=== PATIENT | female | born 1970 | race African-American/Black ===

== ENCOUNTER 2024-12-30 17:57 | Inpatient (IN) | payer MEDICAID, OTHER ==
[~2024-12-30] VITALS: Ht 175.3 cm; Wt 110.8 kg
[2024-12-30] MEDS: SODIUM CHLORIDE 0.9% 1,000 ML IV ONE (19:00)
[2024-12-30] MEDS: ACETAMINOPHEN 325 MG TAB PO ONE (19:00)
--- NOTE | 2024-12-30 19:29 | ED.PDOC ---
Musculoskeletal HPI Comments 54 year old female presents to the ED via EMS with a chief complaint of LT foot pain. Patient states she had LT toe de[place] [facility] [place] and second debridement done on 12/09/24 and states surgeon drained wound 4 days ago. Patient was at the store today, began experiencing LT leg, LT foot pain as well as headache, lightheadedness, called 911. Patient's BP was 160 systolic. Patient noticed pain radiates from LT foot to ferrari when she ambulates. PMHx DM. Denies fever, chills, nausea, vomiting, chest pain, shortness of breath, blurry vision. No other associated symptoms, modifiers, recent injuries or sick contacts present at this time. Chief Complaint: Headache Time Seen by MD: 18:50 Reviewed Notes: Medications, Allergies Allergies: Coded Allergies: NO KNOWN ALLERGIES (Unverified , 08/07/10) Information Source: Patient, Relative Mode of Arrival: EMS Location: Left Extremity Location: Foot, Great Toe, Other (ferrari) Timing: Hours Prehospital treatment: None Severity: Moderate Able to Move Extremity: Yes Bear Weight: Limited Pain: Moderate Circumstances: Preceding Wound Symptoms: Pain, Erythema DVT Risk Factors: NONE, Recent surgery (toe debridement) Associated signs and symptoms: Foot pain Past Medical History PAST MEDICAL HISTORY: DM Surgical History (Other): LT great toe debridement SAUSAGE LINKER History: No Pertinent SAUSAGE LINKER History Family History Family History: Reviewed,noncontributory to illness, No family hx of Cancer, No family hx of DM, No family hx of Heart pramod, No family hx of HTN, No family hx ofKidney pramod, No family hx of Liver pramod, No family hx of Lung pramod, No family hx of Stroke Social History Smoker: Non-Smoker Alcohol: Denies ETOH Use Drugs: Denies Drug Use Lives In: Home Constitutional: denies: chills, diaphoresis, fatigue, fever, malaise, sweats, weakness, others EENTM: denies: blurred vision, double vision, ear bleeding, ear discharge, ear drainage, ear pain, ear ringing, eye pain, eye redness, hearing loss, mouth pain, mouth swelling, nasal discharge, nose bleeding, nose congestion, nose pain, photophobia, tearing, throat pain, throat swelling, voice changes, others Respiratory: denies: cough, hemoptysis, orthopnea, SOB at rest, shortness of breath, SOB with excertion, stridor, wheezing, others Cardiovascular: denies: chest pain, dizzy spells, diaphoresis, Dyspnea on exertion, edema, irregular heart beat, left arm pain, lightheadedness, palpitations, PND, syncope, others Gastrointestinal: denies: abdomen distended, abdominal pain, blood streaked bowels, constipated, diarrhea, dysphagia, difficulty swallowing, hematemesis, melena, nausea, poor appetite, poor fluid intake, rectal bleeding, rectal pain, vomiting, others Genitourinary: denies: abnormal vagina bleeding, burning, dyspareunia, dysuria, flank pain, frequency, hematuria, incontinence, pain, , vagina discharge, urgency, others Neurological: reports: headache; denies: dizziness, fainting, left sided numbness, left sided weakness, numbness, paresthesia, pre-existing deficit, right sided numbness, right sided weakness, seizure, speech problems, tingling, tremors, weakness, others Musculoskeletal: reports: others (LT leg and LT foot pain); denies: back pain, gout, joint pain, joint swelling, muscle pain, muscle stiffness, neck pain Integumetry: denies: bruises, change in color, change in hair/nails, dryness, laceration, lesions, lumps, rash, wounds, others Allergic/Immunocompromised: denies: Difficulty Healing, Frequent Infections, Hives, Itching, others Hematologic/Lymphatic: denies: anemia, blood clots, easy bleeding, easy bruising, swollen glands, others Endocrine: denies: excessive hunger, excessive sweating, excessive thirst, excessive urination, flushing, intolerance to cold, intolerance to heat, unexplained weight gain, unexplained weight loss, others Psychiatric: denies: anxiety, bipolar disorder, depression, hopeless, panic disorder, schizophrenia, sleepless, suicidal, others All Other Systems: Reviewed and Negative Physical Exam General Appearance: Normal HEENT: Normal ENT Inspection, Pharynx Normal, TMs Normal Neck: Full Range of Motion, Non-Tender, Normal, Normal Inspection Respiratory: Chest Non-Tender, Lungs Clear, No Accessory Muscle Use, No Respiratory Distress, Normal Breath Sounds Cardiovascular: No Edema, No JVD, No Murmur, No Gallop, Normal Peripheral Pulses, Regular Rate/Rhythm Breast Exam: Deferred Gastrointestinal: No Organomegaly, Non Tender, No Pulsatile Mass, Normal Bowel Sounds, Soft Genitalia: Deferred Pelvic: Deferred Rectal: Deferred Extremities: No calf tenderness, Normal capillary refill, No pedal edema Musculoskeletal : Location: Left Extremity Location: Foot (purulent drainage witih erythema noted ), Other (LT ferrari with purulent drainage noted as well as erythema) Apperance: Normal Neurologic: Alert, chair installer II-XII nml as Tested, No Motor Deficits, Normal Affect, Normal Mood, No Sensory Deficits Cerebellar Function: Normal Reflexes: Normal Skin: Dry, Normal Color, Warm Lymphatic: No Adenopathy Was a procedure done? Was a procedure done?: No Differential Diagnosis EXT Differential Diagnosis: Cellulitis, Compartment Syndrome, Fracture X-Ray, Labs, Meds, VS Vital Signs Date Time Temp Pulse Resp B/P (MAP) Pulse Ox O2 Delivery O2 Flow Rate FiO2 12/30/24 23:00 98 10 152/96 12/30/24 23:00 98.7 100 10 152/96 (114) 100 98.7 12/30/24 22:30 Room Air* 0 21 12/30/24 18:13 98.7 106 16 159/99 (119) 99 98.7 Lab Test 12/30/24 19:20 Range/Units White Blood Count 5.1 4.4-10.8 10^3/uL Red Blood Count 3.89 L 4.0-5.20 10^6/uL Hemoglobin 11.2 L 12.2-16.2 g/dL Hematocrit 34.4 L 36.0-46.0 % Mean Corpuscular Volume 88.3 80.0-100.0 fL Mean Corpuscular Hemoglobin 28.9 28.0-32.0 pg Mean Corpuscular Hemoglobin Concent 32.7 32.0-36.0 g/dL Red Cell Distribution Width 14.9 H 11.8-14.3 % Platelet Count 278 140-450 10^3/uL Mean Platelet Volume 7.5 6.9-10.8 fL Neutrophils (%) (Auto) 55.1 37.0-80.0 % Lymphocytes (%) (Auto) 28.0 10.0-50.0 % Monocytes (%) (Auto) 9.5 0.0-12.0 % Eosinophils (%) (Auto) 5.7 0.0-7.0 % Basophils (%) (Auto) 1.7 0.0-2.0 % Neutrophils # (Auto) 2.8 1.6-8.6 10 ^3/uL Lymphocytes # (Auto) 1.4 0.4-5.4 10 ^3/uL Monocytes # (Auto) 0.5 0-1.3 10 ^3/uL Eosinophils # (Auto) 0.3 0-0.8 10 ^3/uL Basophils # (Auto) 0.1 0-0.2 10 ^3/uL Nucleated Red Blood Cells 0.1 % Sodium Level 139 136-145 mmol/L Potassium Level 4.1 3.5-5.1 mmol/L Chloride Level 102 98-107 mmol/L Carbon Dioxide Level 28 20-31 mmol/L Anion Gap 9 5-15 Blood Urea Nitrogen 14 9-23 mg/dL Creatinine 0.88 0.550-1.02 mg/dL Glomerular Filtration Rate Calc 79 >90 mL/min BUN/Creatinine Ratio 15.9 10.0-20.0 Serum Glucose 254 H 74-106 mg/dL Lactic Acid Level 1.3 0.4-2.0 mmol/L Calcium Level 9.3 8.7-10.4 mg/dL Troponin I High Sensitivity 4 </=34 ng/L Current Medications Medications (Trade) Dose Ordered Sig/Garima Route Start Time Stop Time Status Last Admin Acetaminophen (Tylenol Tablet) 650 mg ONCE ONCE PO 12/30/24 19:00 12/30/24 19:02 DC 12/30/24 19:00 Metoclopramide HCl (Reglan Injection) 10 mg ONCE ONCE IV 12/30/24 19:00 12/30/24 19:02 DC 12/30/24 23:00 Morphine Sulfate 4 mg ONCE ONCE IV 12/30/24 19:00 12/30/24 19:02 DC 12/30/24 23:00 Sodium Chloride 2,000 ml @ 2,000 mls/hr ONCE ONCE IV 12/30/24 19:15 12/30/24 20:14 DC 12/30/24 23:00 Vancomycin HCl 200 ml @ 200 mls/hr ONCE ONCE IV 12/30/24 19:15 12/30/24 20:14 DC 12/30/24 23:00 Cefepime HCl 50 ml @ 12.5 mls/hr ONCE ONCE IV 12/30/24 19:15 12/30/24 23:14 DC 12/31/24 00:30 Time of 1ST Reevaluation: 19:20 Reevaluation 1ST: Unchanged Patient Education/Counseling: Diagnosis, Treatment, Prognosis Family Education/Counseling: Diagnosis, Treatment, Prognosis Additional Information The following tests were ordered, and results were reviewed by me: XY L TIB FIB, XY L FOOT 3 VIEW, CBC, BMP, TROP, LA W/REFLEX, BLOOD CULTURE, XY CHEST Additional Information was gathered from interviewing the following independent historians: EMS, cousin I reviewed and agreed with the following test results read by other providers: XY CHEST, XY L TIB FIB, XY L FOOT 3 VIEW, I discussed treatment and results with medical personnel and: patient and cousin Comprehensive systems review obtained and negative except for what is stated in the HPI. Sepsis Sepsis Reasesment Focused Exam Orders: Laboratory Tests 12/30/24 19:20: Lactic Acid Level 1.3 Departure 1 Departure Time of Disposition: 06:03 (Patient with a infected leg. We will admit patient for further workup and expert consultation) Impression: Primary Impression: Leg wound, left Qualified Codes: S81.802A - Unspecified open wound, left lower leg, initial encounter Additional Impression: Cellulitis of leg, left Disposition: 09 ADMITTED INPATIENT Admit to: Med Surg Condition: Serious Critical Care Note Critical Care Time?: Yes Critical care comment: Intractable leg pain Authorized and Performed by: Analia García MD Total critical care time: Approximately 43 minutes Due to a high probability of clinically significant, life threatening deterioration, the patient required my highest level of preparedness to intervene emergently and I personally spent this critical care time directly and personally managing the patient. This critical care time included obtaining a history; examining the patient; pulse oximetry; ordering and review of studies; arranging urgent treatment with development of a management plan; evaluation of patient's response to treatment; frequent reassessment; and, discussions with other providers. This critical care time was performed to assess and manage the high probability of imminent, life-threatening deterioration that could result in multi-organ failure. It was exclusive of separately billable procedures and treating other patients and teaching time. Please see my other sections and the rest of the note for further information on patient assessment and treatment. Stability Stability form required: No I personally scribed for ANALIA GARCÍA MD ([email or web address]) on 12/30/24 at 19:29. El ectronically submitted by Kamilah Cole ([email or web address]). I personally scribed for ANALIA GARCÍA MD ([email or web address]) on 12/30/24 at 19:37. Electr onically submitted by Kamilah Cole ([email or web address]). ANALIA GARCÍA MD Dec 30, 2024 19:29
[2024-12-30 19:35] LABS: Hematocrit 34.4 % (36.0-46.0); Hemoglobin 11.2 g/dL (12.2-16.2); Mean Corpuscular Hemoglobin 28.9 pg (28.0-32.0); Mean Corpuscular Volume 88.3 fL (80.0-100.0); Nucleated Red Blood Cells % 0.1 %
[2024-12-30 19:43] LABS: Chloride 102 mmol/L (98-107); Potassium 4.1 mmol/L (3.5-5.1); Sodium 139 mmol/L (136-145)
[2024-12-30 19:44] LABS: Anion Gap 9 (5-15); Calcium 9.3 mg/dL (8.7-10.4); Carbon Dioxide 28 mmol/L (20-31)
[2024-12-30 19:49] LABS: BUN/Creatinine Ratio 15.9 (10.0-20.0); Blood Urea Nitrogen 14 mg/dL (9-23)
[2024-12-30 19:54] LABS: Glucose 254 mg/dL (74-106)
--- NOTE | 2024-12-30 20:46 | DVH ---
CLINICAL INDICATION: left leg pain s/p debridement TECHNIQUE: 1 radiographic views of the left tibia fibula are were obtained. Comparison: None FINDINGS/IMPRESSION: Multiple radiolucent foreign bodies are noted in the mid lateral tibia and fibular soft tissues.
--- NOTE | 2024-12-30 20:57 | DVH ---
CHEST RADIOGRAPH Indication: fever Technique: Single frontal view of the chest was obtained Comparison: None FINDINGS: Lines and Tubes: None Lungs: No focal consolidation. Pleura: No effusion. No pneumothorax. Cardiomediastinal contours: Unremarkable Bones: No acute osseous abnormality. IMPRESSION: 1. No acute cardiopulmonary disease.
--- NOTE | 2024-12-30 20:58 | DVH ---
CLINICAL INDICATION: left foot pain s/p debridement TECHNIQUE: 3 radiographic views of the left foot were obtained. Comparison: None FINDINGS/IMPRESSION: Increased tissue density on the dorsal as well as plantar surface of the distal metatarsals proximal phalanges.
[2024-12-30] MEDS: METOCLOPRAMIDE HCL 5MG/ml INJ 2ml VIAL IV ONE (23:00)
[2024-12-30] MEDS: SODIUM CHLORIDE 0.9% 2,000 ML IV ONE (23:00)
[2024-12-30] MEDS: MORPHINE SULFATE 4 MG/ML SYR/VIAL IV ONE (23:00)
[2024-12-30] MEDS: VANCOMYCIN 1GM/200ML PM 200 ML IV ONE (23:00)
--- NOTE | 2024-12-30 23:48 | DVHHP2 ---
History of Present Illness History of Present Illness This is a 54-year-old female with past medical history of Type 2 diabetes mellitus, HTN, HLD, section brought in by EMS due to left foot pain which started around 4:30 p.m. suddenly during walking around the grocery store. The left foot pain is localized, 9/10 intensity, radiates to ferrari of the tibia, aggravated on walking or making pressure and no relieving factor. Patient went to [facility] on 12/04/2024 due to left great toe pain, swelling eventually wound debridement done and 2nd on debridement done on 0 12/09/2024. Patient received IV antibiotic at home with right arm PICC line and wound dressing changes by visiting nurse. As per patient, recent visit 4 days ago and fluid drainage from left tibial region. In ER, patient lying on bed and dry gauze cover with tibia and left great toe. Patient denies any history of trauma, injury, MVA or recent sick contact. Blood sugar ranges at home 120-200. Currently denies any chest pain, SOB, cough, abdominal pain, dysuria. PAST MEDICAL HISTORY: Type 2 diabetes mellitus, HTN, HLD, section Surgical History (Other): LT great toe debridement on December 04 and December 09, C- section x1 Family History: noncontributory Social History Smoker: Non-Smoker, Denies ETOH Use Drugs: Denies Drug Use Lives In: Home Allergy :no known allergy PCP: Review of Systems Constitutional: Yes: Malaise, Other (APPEARANCE OBESE); No: Fever, Chills, Sweats, Weakness Eyes: No: Pain, Vision change, Conjunctivae inflammation, Eyelid inflammation, Other, Redness ENT: No: Ear pain, Ear discharge, Nose pain, Nose discharge, Nose congestion, Mouth pain, Mouth swelling, Throat pain, Throat swelling, Other Respiratory: No: Cough, Dry, Shortness of breath, SOB with excertion, Wheezing, Hemoptysis, Pleuritic Pain, Sputum, Wheezing, Other Cardiovascular: No: Chest Pain, Palpitations, Orthopnea, Paroxysmal Noc. Dyspnea, Edema, Lt Headedness, Other Gastrointestinal: No: Nausea, Vomiting, Abdominal Pain, Diarrhea, Constipation, Melena, Hematochezia, Other Genitourinary: No Dysuria, No Frequency, No Incontinence, No Hematuria, No Retention, No Other Musculoskeletal: No: other, neck pain, shoulder pain, arm pain, back pain, hand pain, leg pain, foot pain Skin: Other (WOUND PRESENT ON EXTENSOR SURFACE OF THE TIBIA AND LEFT GREAT TOE); No: Rash, Lesions, Jaundice, Bruising Neurological: No: Weakness, Numbness, Incoordination, Change in speech, Confusion, Seizures, Other Allergies: Coded Allergies: NO KNOWN ALLERGIES (Unverified , 08/07/10) Exam Vital Signs Vital Signs Date Time Temp Pulse Resp B/P (MAP) Pulse Ox O2 Delivery O2 Flow Rate FiO2 12/30/24 23:00 98 10 152/96 12/30/24 18:13 98.7 99 98.7 General Appearance: Alert, Oriented X3, Cooperative, No acute distress HEENT: Atraumatic, PERRLA, EOMI Respiratory: Clear to auscultation, Normal air movement Cardiovascular: Regular rate, Normal S1, Normal S2 Abdominal: Normal bowel sounds, Soft, No tenderness Extremities: No clubbing, No cyanosis, Normal pulses, Other (LEFT LEG EDEMA, SKIN CHANGES, WOUND EXTENSOR SURFACE OF TIBIA AND) Neuro: Normal speech, Sensation intact, Other (GAIT INSTABILITY DUE TO LEFT LEG WOUND) Labs/Xrays Labs Test 12/30/24 19:20 Range/Units White Blood Count 5.1 4.4-10.8 10^3/uL Red Blood Count 3.89 L 4.0-5.20 10^6/uL Hemoglobin 11.2 L 12.2-16.2 g/dL Hematocrit 34.4 L 36.0-46.0 % Mean Corpuscular Volume 88.3 80.0-100.0 fL Mean Corpuscular Hemoglobin 28.9 28.0-32.0 pg Mean Corpuscular Hemoglobin Concent 32.7 32.0-36.0 g/dL Red Cell Distribution Width 14.9 H 11.8-14.3 % Platelet Count 278 140-450 10^3/uL Mean Platelet Volume 7.5 6.9-10.8 fL Neutrophils (%) (Auto) 55.1 37.0-80.0 % Lymphocytes (%) (Auto) 28.0 10.0-50.0 % Monocytes (%) (Auto) 9.5 0.0-12.0 % Eosinophils (%) (Auto) 5.7 0.0-7.0 % Basophils (%) (Auto) 1.7 0.0-2.0 % Neutrophils # (Auto) 2.8 1.6-8.6 10 ^3/uL Lymphocytes # (Auto) 1.4 0.4-5.4 10 ^3/uL Monocytes # (Auto) 0.5 0-1.3 10 ^3/uL Eosinophils # (Auto) 0.3 0-0.8 10 ^3/uL Basophils # (Auto) 0.1 0-0.2 10 ^3/uL Nucleated Red Blood Cells 0.1 % Sodium Level 139 136-145 mmol/L Potassium Level 4.1 3.5-5.1 mmol/L Chloride Level 102 98-107 mmol/L Carbon Dioxide Level 28 20-31 mmol/L Anion Gap 9 5-15 Blood Urea Nitrogen 14 9-23 mg/dL Creatinine 0.88 0.550-1.02 mg/dL Glomerular Filtration Rate Calc 79 >90 mL/min BUN/Creatinine Ratio 15.9 10.0-20.0 Serum Glucose 254 H 74-106 mg/dL Lactic Acid Level 1.3 0.4-2.0 mmol/L Calcium Level 9.3 8.7-10.4 mg/dL Troponin I High Sensitivity 4 </=34 ng/L SEPSIS Sepsis Screen Date sepsis recognized/suspect: Dec 30, 2024 Time Sepsis recognized/suspect: 1815 Recent Procedure: No On Antibiotic Therapy: No Respiratory Rate >20: No Heart Rate >90: No Temp<36 C (96.8 F) or >38.3 C: No SBP <90 or MAP <65 mmHG: No New Acute Mental Status Change: No Is the patient on CPAP, BIPAP,: No Physician Orders L Tib Fib Xray (12/30/24 18:59) L Foot 3 View Xray (12/30/24 18:59) Blood Culture (12/30/24 18:59) Chest Portable (12/30/24 18:59) Ok To Use Picc (12/30/24 21:47) Vital Signs Date Time Temp Pulse Resp B/P (MAP) Pulse Ox O2 Delivery O2 Flow Rate FiO2 12/30/24 23:00 98 10 152/96 12/30/24 18:13 98.7 106 16 159/99 (119) 99 98.7 Laboratory Tests Test 12/30/24 19:20 Lactic Acid Level 1.3 mmol/L (0.4-2.0) White Blood Count 5.1 10^3/uL (4.4-10.8) Medications Medications Dose Ordered Sig/Garima Route Start Time Stop Time Status Last Admin Dose Admin Acetaminophen 650 mg ONCE ONCE PO 12/30/24 19:00 12/30/24 19:02 DC 12/30/24 19:00 650 MG Metoclopramide HCl 10 mg ONCE ONCE IV 12/30/24 19:00 12/30/24 19:02 DC 12/30/24 23:00 10 MG Morphine Sulfate 4 mg ONCE ONCE IV 12/30/24 19:00 12/30/24 19:02 DC 12/30/24 23:00 4 MG Sodium Chloride 2,000 ml @ 2,000 mls/hr ONCE ONCE IV 12/30/24 19:15 12/30/24 20:14 DC 12/30/24 23:00 2,000 MLS/HR Vancomycin HCl 200 ml @ 200 mls/hr ONCE ONCE IV 12/30/24 19:15 12/30/24 20:14 DC 12/30/24 23:00 200 MLS/HR Assessment/Plan Assessment/Plan # LEFT LOWER EXTREMITY CELLULITIS -Patient came with left leg pain and swelling -H/O debridement wound x 2 in [facility] -During admission patient is tachycardic heart rate 106 but no leukocytosis -In ER, patient received cefepime, vanco, NSS, morphine, Tylenol. -PICC line placed on right arm for IV ABX -Lactic acid 1.3 -Troponin level 4 -CXR-no acute cardiopulmonary disease -Left tibia and fibula:Multiple radiolucent foreign bodies are noted in the mid lateral tibia and fibular soft tissues. -x-ray left foot: Increased tissue density on the dorsal as well as plantar surface of the distal metatarsals proximal phalanges. -NSS 100 CC/HOURS -Cefepime IV1 g b.i.d. -Vancomycin IV -Blood culture and wound culture orders -CT left lower extremity WITHOUT CONTRAST -Podiatry consult -Arterial duplex lower extremity to rule out DVT # TYPE 2 DIABETES MELLITUS WITH HYPERGLYCEMIA --Home medication metformin 500 mg p.o. b.i.d., Lantus insulin 20 units bedtime -BMP blood glucose 254 -Continuing Lantus 50 units SC with name -Insulin sliding scale -Monitor blood sugars -HbA1c ordered # ESSENTIAL HYPERTENSION -Lisinopril 20 mg p.o. daily -Amlodipine5 mg p.o. daily # HYPERLIPIDEMIA -Atorvastatin 40 mg p.o. daily -Lpid profile # NORMOCYTIC NORMOCHROMIC ANEMIA -Hemoglobin 11.2, HCT 34.4 -MCV 88.3, MCH 28.9, RDW 14.1 -No signs symptoms of active bleeding -Iron panel, ferritin level orders -Stool for occult blood test # MORBID OBESITY, BMI 36.7 -Life style modification Diet: Diabetic diet GI prophylaxis: Pantoprazole 40 mg p.o. daily DVT prophylaxis: Lovenox 40 mg sc daily Goals, of care discussions more than27 minute spent With patient.Full code status. Case discussed with Dr. Salter Plan discussed with: Patient, Other (NURSE) Date of Service: Dec 30, 2024 Billing Provider: JERRI SALTER MD Common Visit Codes: 70981-AIFSERK INP/OBS CARE (HIGH) Secondary Visit Codes: 19064-GCPQTSKD CARE PLAN 30 MINUTES MILE LANGE RESIDENT Dec 30, 2024 23:48
[2024-12-31] VITALS (9 sets, daily range): BP systolic 129–175; BP diastolic 83–101; PULSE 87–106; RESP 16–19; TEMP 97.3–99.4; O2SAT 96–99
[2024-12-31] MEDS ORDERED: VANCOMYCIN PER PHARMACY 0 MG IV SCH
[2024-12-31] MEDS ORDERED: DEXTROSE (50%) 50ML SYRG IV PRN
[2024-12-31] MEDS ORDERED: NITROGLYCERIN 0.4 MG SL TAB SL PRN
[2024-12-31] MEDS: CEFEPIME 2GM/50ML NS 50 ML IV ONE (00:30)
--- NOTE | 2024-12-31 00:57 | DVH ---
Left lower extremity venous duplex Clinical History: Left lower extremity cellulitis Comparison: None Technique: Duplex Doppler evaluation of the deep venous system of the left lower extremity from the common femor al vein to the popliteal vein including color Doppler and spectral/pulsed waveform analysis was perfo rmed. Findings: The common femoral vein demonstrates appropriate compressibility and waveform variability. There is compressibility/patency of the great saphenous vein at the proximal thigh. The femoral vein demonstrates appropriate compressibility and waveform variability. The deep femoral vein demonstrates appropriate compressibility and waveform variability. The popliteal vein demonstrates appropriate compressibility and waveform variability. There is normal compressibility at the tibioperoneal trunk. Impression: 1. No left femoropopliteal venous thrombosis. 2. Contralateral common femoral vein is patent.
[2024-12-31] MEDS: INSULIN LANTUS (GLARGINE) 1 /0.01ml (100units/ml) SC ONE (01:29)
[2024-12-31] MEDS: LISINOPRIL 20 MG TAB PO ONE (01:35)
[2024-12-31] MEDS: hydrALAZINE HCL 20 MG/ML VL IV ONE (04:35)
[2024-12-31] MEDS: MORPHINE SULFATE INJ 2 MG/ml SYRG IV ONE (04:36)
[2024-12-31] MEDS: SODIUM CHLORIDE 0.9% 1,000 ML IV SCH (04:36)
[2024-12-31] MEDS: PANTOPRAZOLE 40 MG TAB PO SCH (05:53)
[2024-12-31] MEDS: HYDROcodone-ACET 5/325MG TAB PO PRN (05:53)
[2024-12-31] MEDS: ACCU-CHEK COMFORT CURVE STRIP VI SCH (05:58)
[2024-12-31] MEDS: InsuLIN REG 1unit/0.01ml Soln (100units/ml) SC SCH ×2 (05:58→22:00)
--- NOTE | 2024-12-31 08:52 | DVH ---
CLINICAL INFORMATION: Left lower extremity cellulitis. TECHNIQUE: Axial CT images of the left lower extremity from the level of the mid femur through the fo ot were obtained without IV contrast. Coronal and sagittal reformatted images were obtained, reviewed , and stored. All CT scans at this medical facility are performed using dose modulation techniques a s appropriate to a performed exam including the following: Automated exposure control was utilized; a djustment of the MA and/or KV according to patient size; and use of iterative reconstruction techniqu e. CTDIvol = 8.58 mGy DLP = 731.63 mGy-cm COMPARISON: None FINDINGS: Moderate to marked subcutaneous edema throughout the left lower leg, likely cellulitis in t he appropriate clinical setting, with large complex fluid collection containing numerous locules of g as at the anterolateral aspect of the left lower leg, possibly within or adjacent to the anterior com partment musculature, poorly delineated on noncontrast enhanced examination, measures approximately 6 .0 x 4.3 cm on the axial images extends up to 28.8 cm in craniocaudal dimension on the coronal images , suspected large abscess. No gas visualized outside this collection or along adjacent fascial planes to suggest necrotizing fasciitis. There is also prominent soft tissue swelling in the great toe with wound at the plantar aspect of the 1st MTP joint. No erosive changes or cortical destruction are see n in the osseous structures. IMPRESSION: 1. Findings consistent with cellulitis in the left lower leg with large fluid collection along the an terolateral aspect of the left lower leg, possibly within or adjacent to the anterior compartment mus culature, most consistent with abscess, containing complex fluid and numerous locules of gas. 2. Soft tissue swelling in the great toe with wound at the plantar aspect of the 1st MTP joint, likel y cellulitis. 3. No definite evidence for osteomyelitis in the left lower leg or left foot. Critical findings Critical Result: Abscess. Findings discussed with the RN taking care of the patient at 12/31/2024 10:47 AM CDT, and acknowledge d receipt and understanding of the findings. ..
[2024-12-31] MEDS: CEFEPIME 1GM/ 50ML 50 ML IV SCH (09:03)
[2024-12-31] MEDS: LISINOPRIL 20 MG TAB PO SCH (09:04)
[2024-12-31] MEDS: ENOXAPARIN SOD 40 MG/0.4 ML SYRINGE SC SCH (09:04)
[2024-12-31 10:15] LABS: Triglycerides 147 mg/dL (< 150)
[2024-12-31 10:17] LABS: Cholesterol 159 mg/dL (< 200)
--- NOTE | 2024-12-31 10:20 | DVH ---
BILATERAL Lower Extremity Arterial Duplex Date: 12/31/2024 08:57 AM Clinical History: diminished pulses on lower legs Comparison: None Technique: Duplex Doppler evaluation including color Doppler and spectral/pulsed waveform analysis of the lower extremity arteries was performed. Finding: RIGHT: Peak systolic velocities are as follows: CARBON BLOCKS PRESS OPERATOR 179 cm/s Deep femoral 97 cm/s SFA proximal 135 cm/s SFA mid-portion 141 cm/s SFA distal 111 cm/s Popliteal 85 cm/s Posterior tibial 67 cm/s Dorsalis pedis 53 cm/s The waveforms are triphasic with diastolic flow. LEFT: Velocities within normal limits. Monophasic waveforms from the left popliteal artery to the left aaron salis pedal artery. Left inguinal lymph node measures 5 cm. REFERENCE VALUES, [facility] ([facility]) vascular Imaging Lab Criteria: Peak systolic velocity ranges (in cm/sec) are as follows: <150 cm/s - <20 % stenosis 150-200 cm/s - 20-49% stenosis 200-300 cm/s - 50-75% stenosis >300 cm/s -> 75% stenosis IMPRESSION: There is no evidence for peripheral vascular insufficiency in the right lower extremity. Monophasic waveforms from the left popliteal artery to the left dorsalis pedal artery. Left inguinal lymph node measures 5 cm.
[2024-12-31 10:23] LABS: INR 1.03 (0.9-1.15); Partial Thromboplastin Time 26.4 SEC (24.5-34.5); Prothrombin Time 10.9 sec (9.3-11.8)
[2024-12-31] MEDS: MORPHINE SULFATE INJ 2 MG/ml SYRG IV PRN ×3 (10:26→22:02)
[2024-12-31 10:41] LABS: HDL Cholesterol 34 mg/dL (40-59)
[2024-12-31 11:47] LABS: Alanine Aminotransferase 12 U/L (7-40); Albumin 3.9 g/dL (3.2-4.8); Alkaline Phosphatase 130 U/L (46-116); Anion Gap 9 (5-15); BUN/Creatinine Ratio 14.1 (10.0-20.0); Bilirubin, Total 0.7 mg/dL (0.2-1.0); Blood Urea Nitrogen 11 mg/dL (9-23); Calcium 9.6 mg/dL (8.7-10.4); Carbon Dioxide 26 mmol/L (20-31); Chloride 103 mmol/L (98-107); Glucose 188 mg/dL (74-106); Hematocrit 32.3 % (36.0-46.0); Hemoglobin 10.9 g/dL (12.2-16.2); Mean Corpuscular Hemoglobin 29.4 pg (28.0-32.0); Mean Corpuscular Volume 87.3 fL (80.0-100.0); Nucleated Red Blood Cells % 0.2 %; Potassium 3.7 mmol/L (3.5-5.1); Sodium 138 mmol/L (136-145); Total Protein 7.3 g/dL (5.7-8.2)
--- NOTE | 2024-12-31 12:03 | DVHINCON2 ---
Date of service: Dec 31, 2024 Reason for Consultation left upper leg abscess History of Present Illness HPI 54-year-old female with a left upper leg abscess, pain . No drainage seen , patient does report wound drainage from the wound. Patient was treated on [facility] since November to the left toe and was following up for wound debridement. patient reports no improvement to the wound. Past Medical History Cardiac: HTN Pulmonary: No pertinent Hx Central Nervous System: No pertinent Hx GI: No pertinent Hx Hemotology/Oncology: No pertinent Hx Hepatobiliary: No pertinent Hx Psychiatric: No pertinent Hx Musculoskeletal: No pertinent Hx Rheumotologic: No pertinent Hx Infectious Disease: No peritnent Hx ENT: No pertinent Hx Renal/: No pertinent Hx Endocrine: IDDM Dermatology: No pertinent Hx Past Surgical History: Others left great toe debridement Smoker: No Hx (Negative) Alocohol: None Drugs: None Review of Systems Constitutional: No symptom reported Ears, Nose, & Throat: No symptom reported Eyes: No symptom reported Pulmonary/Respiratory: No symptom reported Cardiovascular: No symptom reported Gastrointestinal: No symptom reported Genitourinary: No symptom reported Musculoskeletal: Leg pain Skin: No symptom reported Psychiatric: No symptom reported Endocrine: No symptom reported Hemotologic/Lymphatic: No symptom reported H&P Exam Vital Signs Vital Signs Date Time Temp Pulse Resp B/P (MAP) Pulse Ox O2 Delivery O2 Flow Rate FiO2 12/31/24 10:56 94 18 157/96 12/31/24 08:58 97.3 99 97.3 12/31/24 08:00 Room Air* 0 21 General Appeara: Well developed, Well nourished, Mild distress Head Exam: Normal inspection Neck Exam: Normal inspection Eye Exam: bilateral eye Normal inspection Nasal Exam: Normal inspection Mouth: Normal Inspection Pulmonary/Respiratory: Normal inspection Cardiovascular/Chest: Normal inspection Legs: left leg pain, left leg swelling, left leg other (left leg abscess) Tendon/ Neuro: Normal sensation [employer] Exam: Normal hearing, Normal speech, PERRL Neuro/Mental St: Alert, Oriented Appearance: Appropriate appearance Eye contact/ Speech: Cooperative, Good eye contact, Normal speech Thoughts/Psych: Normal thought pattern Wounds left upper leg, left great toe Labs/Xrays Labs Test 12/31/24 11:37 12/31/24 09:12 12/30/24 19:20 Range/Units POC Glucose 159 H 70-106 mg/dl White Blood Count 4.3 L 4.4-10.8 10^3/uL Red Blood Count 3.70 L 4.0-5.20 10^6/uL Hemoglobin 10.9 L 12.2-16.2 g/dL Hematocrit 32.3 L 36.0-46.0 % Mean Corpuscular Volume 87.3 80.0-100.0 fL Mean Corpuscular Hemoglobin 29.4 28.0-32.0 pg Mean Corpuscular Hemoglobin Concent 33.7 32.0-36.0 g/dL Red Cell Distribution Width 14.8 H 11.8-14.3 % Platelet Count 260 140-450 10^3/uL Mean Platelet Volume 8.0 6.9-10.8 fL Neutrophils (%) (Auto) 56.9 37.0-80.0 % Lymphocytes (%) (Auto) 23.9 10.0-50.0 % Monocytes (%) (Auto) 10.4 0.0-12.0 % Eosinophils (%) (Auto) 7.0 0.0-7.0 % Basophils (%) (Auto) 1.8 0.0-2.0 % Neutrophils # (Auto) 2.5 1.6-8.6 10 ^3/uL Lymphocytes # (Auto) 1.0 0.4-5.4 10 ^3/uL Monocytes # (Auto) 0.4 0-1.3 10 ^3/uL Eosinophils # (Auto) 0.3 0-0.8 10 ^3/uL Basophils # (Auto) 0.1 0-0.2 10 ^3/uL Nucleated Red Blood Cells 0.2 % Prothrombin Time 10.9 9.3-11.8 sec Prothrombin Time INR 1.03 0.9-1.15 Activated Partial Thromboplast Time 26.4 24.5-34.5 SEC Sodium Level 138 136-145 mmol/L Potassium Level 3.7 3.5-5.1 mmol/L Chloride Level 103 98-107 mmol/L Carbon Dioxide Level 26 20-31 mmol/L Anion Gap 9 5-15 Blood Urea Nitrogen 11 9-23 mg/dL Creatinine 0.78 0.550-1.02 mg/dL Glomerular Filtration Rate Calc 91 >90 mL/min BUN/Creatinine Ratio 14.1 10.0-20.0 Serum Glucose 188 H 74-106 mg/dL Hemoglobin A1c 8.4 H <5.7 % A1C Calcium Level 9.6 8.7-10.4 mg/dL Total Bilirubin 0.7 0.2-1.0 mg/dL Aspartate Amino Transferase (AST) 13 13-40 U/L Alanine Aminotransferase (ALT) 12 7-40 U/L Alkaline Phosphatase 130 H 46-116 U/L Total Protein 7.3 5.7-8.2 g/dL Albumin 3.9 3.2-4.8 g/dL Triglycerides Level 147 < 150 mg/dL Cholesterol Level 159 < 200 mg/dL LDL Cholesterol 102 H < 100 mg/dL HDL Cholesterol 34 L 40-59 mg/dL Thyroid Stimulating Hormone (TSH) 1.06 0.55-4.78 uIU/mL Lactic Acid Level 1.3 0.4-2.0 mmol/L Troponin I High Sensitivity 4 </=34 ng/L Assessment/Plan Problem List: (1) Leg wound, left (2) Cellulitis of leg, left Plan patient complaint of left leg and foot pain , left leg cellulitis/ possible abscess to upper left leg Plan: her left great toe open which will be treated by Dr. Leung Incision and drainage of upper left leg will be done at the same time by Dr. Leung Plan discussed with: Patient, Other (Dr. Nunes, Dr. Leung ) Visit Coding Surgery Date of Service if different f: Dec 31, 2024 Billing Provider: RANDA NUNES MD Surgery Visit Codes: 55191 - INP CONSULT <80 MIN DANIEL CRUZ NP Dec 31, 2024 12:03
--- NOTE | 2024-12-31 12:12 | DVHINCON2 ---
Date Seen: Dec 31, 2024 Reason for Consultation Left foot and leg wound History of Present Illness This is a 54-year-old female with past medical history of Type 2 diabetes mellitus, HTN, HLD, section brought in by EMS due to left foot pain which started around 4:30 p.m. suddenly during walking around the grocery store. The left foot pain is localized, 9/10 intensity, radiates to ferrari of the tibia, aggravated on walking or making pressure and no relieving factor. Patient went to [facility] on 12/04/2024 due to left great toe pain, swelling eventually wound debridement done and 2nd on debridement done on 12/09/2024. Patient received IV antibiotic at home with right arm PICC line and wound dressing changes by visiting nurse. As per patient, recent visit 4 days ago and fluid drainage from left tibial region. In ER, patient lying on bed and dry gauze cover with tibia and left great toe. Patient denies any history of trauma, injury, MVA or recent sick contact. Blood sugar ranges at home 120-200. Currently denies any chest pain, SOB, cough, abdominal pain, dysuria. Past Medical History See H&P Past Surgical History See H&P Allergies: Coded Allergies: NO KNOWN ALLERGIES (Unverified , 08/07/10) Current Medications Current Medications Medications (Trade) Dose Ordered Sig/Garima Route PRN Reason Start Time Stop Time Status Last Admin Nitroglycerin (Ntrostat Sublingual) 0.4 mg Q5MINP PRN SL FOR CHEST PAIN 12/31/24 00:00 Morphine Sulfate 2 mg Q30M PRN IV FOR CHEST PAIN 12/31/24 00:00 Pantoprazole Sodium (Protonix Tablet) 40 mg DAILY@0600 PO 12/31/24 06:00 12/31/24 05:53 Enoxaparin Sodium (Lovenox) 40 mg DAILY SC 12/31/24 10:00 12/31/24 09:04 Amlodipine Besylate (Norvasc Tablet) 5 mg DAILY PO 12/31/24 10:00 12/31/24 09:05 Lisinopril (Zestril Tablet) 20 mg DAILY PO 12/31/24 10:00 12/31/24 09:04 Insulin Glargine (Lantus) 20 units HS SC 12/31/24 22:00 Diagnostic Test (Pha) (Accu-Chek Comfort Curve T) 1 strip ACHS 12/31/24 07:00 12/31/24 11:40 Insulin Human Regular (InsuLIN R) HS SC 12/31/24 22:00 Insulin Human Regular (InsuLIN R) AC SC 12/31/24 07:00 12/31/24 11:41 Dextrose 50 ml UD PRN IV Blood Sugar LESS THAN 60 12/31/24 00:00 Sodium Chloride 1,000 ml @ 100 mls/hr Q10H IV 12/31/24 00:00 12/31/24 10:00 Vancomycin HCl 0 ml @ 0 mls/hr UD IV 12/31/24 00:00 Cefepime HCl 50 ml @ 12.5 mls/hr Q12HR IV 12/31/24 10:00 12/31/24 09:03 Atorvastatin Calcium (Lipitor) 40 mg HS PO 12/31/24 22:00 Acetaminophen/ Hydrocodone Bitart ([place] 5/325MG Tab) 1 tab Q6HPRN PRN PO MODERATE PAIN (4-6 PAIN SCALE) 12/31/24 04:15 12/31/24 05:53 Morphine Sulfate 2 mg Q6HPRN PRN IV MODERATE PAIN (4-6 PAIN SCALE) 12/31/24 09:30 12/31/24 10:26 Clindamycin Phosphate 50 ml @ 50 mls/hr Q8HR IV 12/31/24 14:00 Future hold Vital Signs Vital Signs Date Time Temp Pulse Resp B/P (MAP) Pulse Ox O2 Delivery O2 Flow Rate FiO2 12/31/24 10:56 94 18 157/96 12/31/24 08:58 97.3 99 97.3 12/31/24 08:00 Room Air* 0 21 Physical Exam Dermatological: Skin is dry with mild erythema and some maceration around the wound site No gross deformities noted Mild non-pitting edema present bilaterally Large dorsal hallux wound with mixed fibrotic, granular, exposed tendon, with serous drainage Left Longitudinal leg wound with surrounding erythema and swelling Vascular: Dorsalis pedis and posterior tibial pulses are 1+ bilaterally Capillary refill is under 2 seconds Skin temperature is warm bilaterally Neurologic: Protective sensation is absent on the plantar forefoot bilaterally Monofilament testing reveals decreased sensation in multiple plantar sites Musculoskeletal: Range of motion at the ankle and MTP joints is within normal limits. Strength is 5/5 in all tested muscle groups. Gait is antalgic due to offloading of the affected limb. Labs/Diagnostic Data Labs Test 12/31/24 12:03 12/31/24 11:37 12/31/24 09:12 12/30/24 19:20 Range/Units POC Glucose 159 H 70-106 mg/dl White Blood Count 4.3 L 4.4-10.8 10^3/uL Red Blood Count 3.70 L 4.0-5.20 10^6/uL Hemoglobin 10.9 L 12.2-16.2 g/dL Hematocrit 32.3 L 36.0-46.0 % Mean Corpuscular Volume 87.3 80.0-100.0 fL Mean Corpuscular Hemoglobin 29.4 28.0-32.0 pg Mean Corpuscular Hemoglobin Concent 33.7 32.0-36.0 g/dL Red Cell Distribution Width 14.8 H 11.8-14.3 % Platelet Count 260 140-450 10^3/uL Mean Platelet Volume 8.0 6.9-10.8 fL Neutrophils (%) (Auto) 56.9 37.0-80.0 % Lymphocytes (%) (Auto) 23.9 10.0-50.0 % Monocytes (%) (Auto) 10.4 0.0-12.0 % Eosinophils (%) (Auto) 7.0 0.0-7.0 % Basophils (%) (Auto) 1.8 0.0-2.0 % Neutrophils # (Auto) 2.5 1.6-8.6 10 ^3/uL Lymphocytes # (Auto) 1.0 0.4-5.4 10 ^3/uL Monocytes # (Auto) 0.4 0-1.3 10 ^3/uL Eosinophils # (Auto) 0.3 0-0.8 10 ^3/uL Basophils # (Auto) 0.1 0-0.2 10 ^3/uL Nucleated Red Blood Cells 0.2 % Prothrombin Time 10.9 9.3-11.8 sec Prothrombin Time INR 1.03 0.9-1.15 Activated Partial Thromboplast Time 26.4 24.5-34.5 SEC Sodium Level 138 136-145 mmol/L Potassium Level 3.7 3.5-5.1 mmol/L Chloride Level 103 98-107 mmol/L Carbon Dioxide Level 26 20-31 mmol/L Anion Gap 9 5-15 Blood Urea Nitrogen 11 9-23 mg/dL Creatinine 0.78 0.550-1.02 mg/dL Glomerular Filtration Rate Calc 91 >90 mL/min BUN/Creatinine Ratio 14.1 10.0-20.0 Serum Glucose 188 H 74-106 mg/dL Hemoglobin A1c 8.4 H <5.7 % A1C Calcium Level 9.6 8.7-10.4 mg/dL Total Bilirubin 0.7 0.2-1.0 mg/dL Aspartate Amino Transferase (AST) 13 13-40 U/L Alanine Aminotransferase (ALT) 12 7-40 U/L Alkaline Phosphatase 130 H 46-116 U/L Total Protein 7.3 5.7-8.2 g/dL Albumin 3.9 3.2-4.8 g/dL Triglycerides Level 147 < 150 mg/dL Cholesterol Level 159 < 200 mg/dL LDL Cholesterol 102 H < 100 mg/dL HDL Cholesterol 34 L 40-59 mg/dL Thyroid Stimulating Hormone (TSH) 1.06 0.55-4.78 uIU/mL Troponin I High Sensitivity 4 </=34 ng/L Problems(with codes): (1) Leg wound, left (2) Cellulitis of leg, left Plan/Recommendation ASSESSMENT: Patient is a 54 year old seen on the floor for a worsening ulcer PLAN: - The patients chart was reviewed, clinical findings were discussed with the patient, the etiologies of the conditions were discussed in detail, and a treatment plan was agreed to at this time, with both oral and written instructions provided. - reviewed advanced imaging - discussed plan is to perform an incision and drainage of the foot and leg - patient will need multiple I and D's to salvage the leg - patient NPO at midnight - take her to the OR tomorrow All questions were answered and concerns addressed to the patient's satisfaction. The patient was given the phone number to the clinic and was told how to make contact with the clinic should any concerns or questions arise. P atient understands that if any questions or concerns arise prior to the next appointment, we should be contacted immediately. FOLLOW-UP: Continue to follow while inpatient Plan discussed with: Patient Date of Service: Dec 31, 2024 Billing Provider: STEFF TREJO DPM Common Visit Codes: CONSULT ONLY Consultation Codes: [id number] CONSULT <80MIN STEFF TREJO DPM Dec 31, 2024 12:12
--- NOTE | 2024-12-31 13:55 | DVHPNRES ---
Progress Note Date Seen: Dec 31, 2024 Resident Creating Document: KEYSHAWN POLLARD RESIDENT Medical Necessity Reason Pt with a Central, PICC or Fol: No Subjective Review of Systems 54-year-old female with past medical history of Type 2 diabetes mellitus, HTN, HLD, section brought in by EMS due to left foot pain which started around 4:30 p.m. suddenly during walking around the grocery store yesterday. The left foot pain is localized, 9/10 intensity, radiates to ferrari of the tibia, aggravated on walking or making pressure and no relieving factor. She reports that her leg was red, swollen and tender with increased temperature. She went to [facility] and had gotten debridement twice in the last month after she had noticed a blister in her toe, which was tense and painful and for she had gone to her PCP who recommended her to go to the hospital. 2nd on debridement done on 12/09/2024. Patient received IV antibiotic at home with right arm PICC line and wound dressing changes by visiting nurse. As per patient, recent visit 4 days ago and fluid drainage from left tibial region. Patient denies any history of trauma, injury, MVA or recent sick contact. Blood sugar ranges at home 120-200. Currently denies any chest pain, SOB, cough, abdominal pain, dysuria. PAST MEDICAL HISTORY: Type 2 diabetes mellitus, HTN, HLD, section Surgical History (Other): LT great toe debridement on December 04 and December 09, C- section x1 Family History: noncontributory Social History Smoker: Non-Smoker, Denies ETOH Use Drugs: Denies Drug Use Lives In: Home Allergy :no known allergy PCP: ROS: Today the patient was seen and examined by me at the bedside. Overnight events were reviewed. The patient is in distress and she says that her leg hurts a lot, rating it as a 10/ 10 in intensity. She has kept her left leg elevated and is emotionally distressed. Rest of the ROS is negative Objective vital signs Vital Sign Date Time Temp Pulse Resp B/P (MAP) Pulse Ox O2 Delivery O2 Flow Rate FiO2 12/31/24 10:56 94 18 157/96 12/31/24 08:58 97.3 99 97.3 12/31/24 08:00 Room Air* 0 21 Total Intake and Output 12/30/24 12/30/2412/31/25 15:00 23:00 07:00 Intake Total 200 ml Balance 200 ml medications Current Medications Medications Dose Ordered Sig/Garima Route Start Time Stop Time Status Last Admin Dose Admin Nitroglycerin 0.4 mg Q5MINP PRN SL 12/31/24 00:00 Morphine Sulfate 2 mg Q30M PRN IV 12/31/24 00:00 Pantoprazole Sodium 40 mg DAILY@0600 PO 12/31/24 06:00 12/31/24 05:53 40 MG Enoxaparin Sodium 40 mg DAILY SC 12/31/24 10:00 12/31/24 09:04 40 MG Amlodipine Besylate 5 mg DAILY PO 12/31/24 10:00 12/31/24 09:05 5 MG Lisinopril 20 mg DAILY PO 12/31/24 10:00 12/31/24 09:04 20 MG Insulin Glargine 20 units HS SC 12/31/24 22:00 Diagnostic Test (Pha) 1 strip ACHS 12/31/24 07:00 12/31/24 11:40 1 STRIP Insulin Human Regular HS SC 12/31/24 22:00 Insulin Human Regular AC SC 12/31/24 07:00 12/31/24 11:41 2 UNITS Dextrose 50 ml UD PRN IV 12/31/24 00:00 Sodium Chloride 1,000 ml @ 100 mls/hr Q10H IV 12/31/24 00:00 12/31/24 10:00 100 MLS/HR Vancomycin HCl 0 ml @ 0 mls/hr UD IV 12/31/24 00:00 Cefepime HCl 50 ml @ 12.5 mls/hr Q12HR IV 12/31/24 10:00 12/31/24 09:03 12.5 MLS/HR Atorvastatin Calcium 40 mg HS PO 12/31/24 22:00 Acetaminophen/ Hydrocodone Bitart 1 tab Q6HPRN PRN PO 12/31/24 04:15 12/31/24 05:53 1 TAB Clindamycin Phosphate 50 ml @ 50 mls/hr Q8HR IV 12/31/24 14:00 Future hold Morphine Sulfate 2 mg Q4HPRN PRN IV 12/31/24 13:30 Examination Pt is lying on bed General Appearance: Alert, Oriented X3, Cooperative, Not in acute distress HEENT: Atraumatic, Mucous membranes moist/pink Respiratory: Clear to auscultation, Normal air movement, No added sounds Cardiovascular: Regular rate, Normal S1, Normal S2, No murmurs Abdominal: Active bowel sounds, Soft, no distention, no tenderness Extremities: No edema, Normal pulses, plantar aspect of the 1st metatarsophalangeal joint and great toe has been debrided on the left leg. left ferrari abscess with draining pus seen, peeling of the skin from [id number] till the foot seen, left foot is red, swollen Skin: No Significant rash, except past surgical scars Neuro: Normal speech, sensorimotor deficits none Psych/Mental Status: Mental status NL, Mood NL Nurse was there as crater and packer during examination laboratory and microbiology Laboratory Tests 12/31/24 09:12 Test 12/31/24 09:12 Range/Units Serum Glucose 188 H 74-106 mg/dL Labs and/or images reviewed: Labs reviewed by me, Image(s) reviewed by me Problem List/Assessment/Plan Problem List/Assessment/Plan # left lower extremity cellulitis with abscess -PICC line placed on right arm for IV ABX -Lactic acid 1.3 -Left tibia and fibula: - Multiple radiolucent foreign bodies are noted in the mid lateral tibia and fibular soft tissues. -x-ray left foot: Increased tissue density on the dorsal as well as plantar surface of the distal metatarsals proximal phalanges. -CT left lower extremity WITHOUT CONTRAST: Findings consistent with cellulitis in the left lower leg with large fluid collection along the anterolateral aspect of the left lower leg, possibly within or adjacent to the anterior compartment musculature, most consistent with abscess, containing complex fluid and numerous locules of gas. - Soft tissue swelling in the great toe with wound at the plantar aspect of the 1st MTP joint, likely cellulitis. - No definite evidence for osteomyelitis in the left lower leg or left foot. -NSS 100 CC/HOURS -Cefepime IV1 g b.i.d. -Vancomycin IV -Clindamycin IV -Blood culture and wound culture orders -Arterial duplex showed There is no evidence for peripheral vascular insufficiency in the right lower extremity. -Venous Doppler showed No left femoropopliteal venous thrombosis; Contralateral common femoral vein is patent. -Surgery consult- her left great toe open which will be treated by Dr. Leung; Incision and drainage of upper left leg will be done at the same time by Dr. Leung -Podiatry consult- patient will need multiple I and D's to salvage the leg,; patient NPO at midnight; OR tomorrow -NPO # TYPE 2 DIABETES MELLITUS WITH HYPERGLYCEMIA --Home medication metformin 500 mg p.o. b.i.d., Lantus insulin 20 units bedtime -BMP blood glucose 254 -Continuing Lantus 50 units SC with name -Insulin sliding scale -Monitor blood sugars -HbA1c ordered # ESSENTIAL HYPERTENSION -Lisinopril 20 mg p.o. daily -Amlodipine5 mg p.o. daily # HYPERLIPIDEMIA -Atorvastatin 40 mg p.o. daily -Lpid profile # NORMOCYTIC NORMOCHROMIC ANEMIA -Hemoglobin 11.2, HCT 34.4 -MCV 88.3, MCH 28.9, RDW 14.1 -No signs symptoms of active bleeding -Iron panel, ferritin level orders -Stool for occult blood test # MORBID OBESITY, BMI 36.7 -Life style modification Diet: Diabetic diet GI prophylaxis: Pantoprazole 40 mg p.o. daily DVT prophylaxis: Lovenox 40 mg sc daily Goals of care discussed with the patient for more than 27 minutes: Full code status Case discussed with Dr. West, patient and nurse. Plan discussed with: Patient, Other (rn) My Orders My Orders Orders - KEYSHAWN POLLARD Procedure Category Date Status Time Clindamycin 600mg Iv PHA 12/31/24 In Process (Cleocin Iv) 14:00 Date of Service: Dec 31, 2024 Billing Provider: ABDIAS WEST MD Common Visit Codes: [id number] INP/OBS CARE(HIGH) KEYSHAWN POLLARD Dec 31, 2024 13:55 ABDIAS WEST MD Jan 02, 2025 00:15
[2024-12-31] MEDS: CLINDAMYCIN 600MG IV 50 ML IV SCH (14:25)
[2024-12-31] MEDS: MUPIROCIN 2% OINT 15gm or 22gm TOP ONE (18:00)
[2024-12-31] MEDS: CLINDAMYCIN 600MG IV 50 ML IV ONE (21:49)
[2024-12-31] MEDS: ATORVASTATIN 20 MG TAB PO SCH (21:58)
[2024-12-31] MEDS: INSULIN LANTUS (GLARGINE) 1 /0.01ml (100units/ml) SC SCH (22:00)
[2024-12-31] MEDS: MUPIROCIN 2% OINT 15gm or 22gm TOP SCH (22:05)
[2025-01-01] VITALS (9 sets, daily range): BP systolic 123–162; BP diastolic 82–100; PULSE 86–116; RESP 10–19; TEMP 97.5–98.5; O2SAT 95–100
[2025-01-01 08:02] LABS: Hematocrit 30.3 % (36.0-46.0); Hemoglobin 10.3 g/dL (12.2-16.2); Mean Corpuscular Hemoglobin 29.9 pg (28.0-32.0); Mean Corpuscular Volume 87.9 fL (80.0-100.0); Nucleated Red Blood Cells % 0.1 %
[2025-01-01 08:13] LABS: Alanine Aminotransferase 12 U/L (7-40); Anion Gap 9 (5-15); BUN/Creatinine Ratio 13.6 (10.0-20.0); Blood Urea Nitrogen 11 mg/dL (9-23); Calcium 9.5 mg/dL (8.7-10.4); Carbon Dioxide 26 mmol/L (20-31); Chloride 104 mmol/L (98-107); Potassium 4.0 mmol/L (3.5-5.1); Sodium 139 mmol/L (136-145); Total Protein 7.0 g/dL (5.7-8.2)
[2025-01-01 08:14] LABS: Albumin 3.7 g/dL (3.2-4.8); Bilirubin, Total 0.7 mg/dL (0.2-1.0)
[2025-01-01 08:20] LABS: Alkaline Phosphatase 121 U/L (46-116); Glucose 191 mg/dL (74-106)
[2025-01-01] MEDS: diphenhdrAMINE HCL 25 MG CAP PO PRN (11:49)
--- NOTE | 2025-01-01 12:18 | DVHPN2 ---
Subjective This is a 54-year-old female with past medical history of Type 2 diabetes mellitus, HTN, HLD, section brought in by EMS due to left foot pain which started around 4:30 p.m. suddenly during walking around the grocery store. The left foot pain is localized, 9/10 intensity, radiates to ferrari of the tibia, aggravated on walking or making pressure and no relieving factor. Patient went to [facility] on 12/04/2024 due to left great toe pain, swelling eventually wound debridement done and 2nd on debridement done on 12/09/2024. Patient received IV antibiotic at home with right arm PICC line and wound dressing changes by visiting nurse. As per patient, recent visit 4 days ago and fluid drainage from left tibial region. In ER, patient lying on bed and dry gauze cover with tibia and left great toe. Patient denies any history of trauma, injury, MVA or recent sick contact. Blood sugar ranges at home 120-200. Currently denies any chest pain, SOB, cough, abdominal pain, dysuria. Changes from previous H/P or p: No Changes Eyes: No Pain, No Vision change, No Conjunctivae inflammation, No Eyelid inflammation, No Other, No Redness ENT: No Ear pain, No Ear discharge, No Nose pain, No Nose discharge, No Nose congestion, No Mouth pain, No Mouth swelling, No Throat pain, No Throat swelling, No Other Cardiovascular: No Chest Pain, No Palpitations, No Orthopnea, No Paroxysmal Noc. Dyspnea, No Edema, No Lt Headedness, No Other Respiratory: No Cough, No Dry, No Shortness of breath, No SOB with excertion, No Wheezing, No Hemoptysis, No Pleuritic Pain, No Sputum, No Other Gastrointestinal: No Nausea, No Vomiting, No Abdominal Pain, No Diarrhea, No Constipation, No Melena, No Hematochezia, No Other Genitourinary: No Dysuria, No Frequency, No Incontinence, No Hematuria, No Retention, No Other Musculoskeletal: No other, No neck pain, No shoulder pain, No arm pain, No back pain, No hand pain, No leg pain, No foot pain Skin: No Rash, No Lesions, No Jaundice, No Bruising; Other (WOUND PRESENT ON EXTENSOR SURFACE OF THE TIBIA AND LEFT GREAT TOE) Objective Vitals Vital Signs Date Time Temp Pulse Resp B/P (MAP) Pulse Ox O2 Delivery O2 Flow Rate FiO2 01/01/25 11:50 78 20 132/65 01/01/25 09:30 98.0 98 98.0 01/01/25 07:54 Room Air* 0 21 Intake/Output Intake and Output 01/01/25 07:00 Intake Total 1000 ml Output Total 550 ml Balance 450 ml Intake Oral 400 ml IV Total 600 ml Output Urine Total 550 ml # Voids 1 Exam Dermatological: Skin is dry with mild erythema and some maceration around the wound site No gross deformities noted Mild non-pitting edema present bilaterally Large dorsal hallux wound with mixed fibrotic, granular, exposed tendon, with serous drainage Left Longitudinal leg wound with surrounding erythema and swelling Vascular: Dorsalis pedis and posterior tibial pulses are 1+ bilaterally Capillary refill is under 2 seconds Skin temperature is warm bilaterally Neurologic: Protective sensation is absent on the plantar forefoot bilaterally Monofilament testing reveals decreased sensation in multiple plantar sites Musculoskeletal: Range of motion at the ankle and MTP joints is within normal limits. Strength is 5/5 in all tested muscle groups. Gait is antalgic due to offloading of the affected limb. Medications Current Medications Medications Dose Ordered Sig/Garima Route Start Time Stop Time Status Last Admin Dose Admin Nitroglycerin 0.4 mg Q5MINP PRN SL 12/31/24 00:00 Morphine Sulfate 2 mg Q30M PRN IV 12/31/24 00:00 12/31/24 22:02 2 MG Pantoprazole Sodium 40 mg DAILY@0600 PO 12/31/24 06:00 12/31/24 05:53 40 MG Enoxaparin Sodium 40 mg DAILY SC 12/31/24 10:00 12/31/24 09:04 40 MG Amlodipine Besylate 5 mg DAILY PO 12/31/24 10:00 12/31/24 09:05 5 MG Lisinopril 20 mg DAILY PO 12/31/24 10:00 12/31/24 09:04 20 MG Insulin Glargine 20 units HS SC 12/31/24 22:00 12/31/24 22:00 20 UNITS Diagnostic Test (Pha) 1 strip ACHS 12/31/24 07:00 01/01/25 11:49 1 STRIP Insulin Human Regular HS SC 12/31/24 22:00 12/31/24 22:00 4 UNITS Insulin Human Regular AC SC 12/31/24 07:00 01/01/25 06:20 3 UNITS Dextrose 50 ml UD PRN IV 12/31/24 00:00 Sodium Chloride 1,000 ml @ 100 mls/hr Q10H IV 12/31/24 00:00 01/01/25 05:53 100 MLS/HR Vancomycin HCl 0 ml @ 0 mls/hr UD IV 12/31/24 00:00 Cefepime HCl 50 ml @ 12.5 mls/hr Q12HR IV 12/31/24 10:00 01/01/25 10:08 12.5 MLS/HR Atorvastatin Calcium 40 mg HS PO 12/31/24 22:00 12/31/24 21:58 40 MG Acetaminophen/ Hydrocodone Bitart 1 tab Q6HPRN PRN PO 12/31/24 04:15 12/31/24 05:53 1 TAB Clindamycin Phosphate 50 ml @ 50 mls/hr Q8HR IV 12/31/24 14:00 01/01/25 06:04 50 MLS/HR Morphine Sulfate 2 mg Q4HPRN PRN IV 12/31/24 13:30 01/01/25 11:50 2 MG Vancomycin HCl 200 ml @ 200 mls/hr Q8H IV 12/31/24 16:00 01/01/25 08:05 200 MLS/HR Mupirocin 1 applic BID TOP 12/31/24 22:00 01/01/25 10:07 1 APPLIC Diphenhydramine HCl 25 mg Q6HP PRN PO 01/01/25 11:30 01/01/25 11:49 25 MG Laboratory Results Laboratory Tests 01/01/25 07:08 Chemistry Test 01/01/25 07:08 Albumin 3.7 g/dL (3.2-4.8) Calcium Level 9.5 mg/dL (8.7-10.4) Total Protein 7.0 g/dL (5.7-8.2) LFT Test 01/01/25 07:08 Alanine Aminotransferase (ALT) 12 U/L (7-40) Alkaline Phosphatase 121 U/L (46-116) H Aspartate Amino Transferase (AST) 17 U/L (13-40) Total Bilirubin 0.7 mg/dL (0.2-1.0) Microbiology Microbiology Date/Time Source Procedure Growth Status 12/31/24 13:38 Toe Letf (Big) Gram Stain Pending Resulted 12/31/24 13:38 Toe Letf (Big) Wound Culture - Preliminary Resulted 12/30/24 19:20 Blood Blood Culture - Preliminary NO GROWTH AFTER 24 HOURS OF INCUBATION. Resulted Assessment/Plan Assessment/Plan ASSESSMENT: Patient is a 54 year old seen on the floor for a worsening ulcer PLAN: - The patients chart was reviewed, clinical findings were discussed with the patient, the etiologies of the conditions were discussed in detail, and a treatment plan was agreed to at this time, with both oral and written instructions provided. - reviewed advanced imaging - discussed plan is to perform an incision and drainage - patient has been NPO since midnight - take him to the OR today - we will get cultures in the OR - can weightbear as tolerated in postoperative shoe All questions were answered and concerns addressed to the patient's satisfaction. The patient was given the phone number to the clinic and was told how to make contact with the clinic should any concerns or questions arise. Patient understands that if any questions or concerns arise prior to the next appointment, we should be contacted immediately. FOLLOW-UP: Continue to follow while inpatient Plan discussed with: Patient Problem List: (1) Leg wound, left (2) Cellulitis of leg, left Date of Service: Jan 01, 2025 Billing Provider: STEFF TREJO DPM Common Visit Codes: [id number] INP/OBS CARE(HIGH) STEFF TREJO DPM Jan 01, 2025 12:18
[2025-01-01] MEDS ORDERED: KETAMINE 50mg/ML 1ml syringe ONE (12:30)
[2025-01-01] MEDS ORDERED: MIDAZOLAM HCL 2MG/2ML 2ml VIAL (1mg/ml) ONE (12:30)
[2025-01-01] MEDS ORDERED: KETOROLAC TROMETH 30 MG/ML 1ML VIAL ONE (12:30)
[2025-01-01] MEDS ORDERED: ONDANSETRON HCL 4 MG/2 ML VIAL ONE (12:30)
[2025-01-01] MEDS ORDERED: PROPOFOL 10 MG/ML 20 ML IV ONE (12:30)
[2025-01-01] MEDS ORDERED: GLYCOPYRROLATE 0.2 MG/ML 1ML VIAL ONE (12:30)
[2025-01-01] MEDS: BUPIVACAINE 0.5% MPF INJ 30ML SDV IJ ONE (12:49)
[2025-01-01] MEDS ORDERED: fentaNYL CITRATE 100 MCG/2 ML VL ONE (12:49)
--- NOTE | 2025-01-01 13:07 | DVHOP2 ---
Operative Report - 2 Report Details Date: 01/01/25 Preop Diagnosis: 1. Left hallux osteomyelitis 2. Left hallux cellulitis 3. Left leg abscess 4. Left leg necrotizing fasciitis Postop Diagnosis: same as preo Surgeon: Steff Trejo MD Anesthesiologist: See anesthesia Anesthesia: Mac Consent: The patient was informed of the risks and benefits of the procedure. These include but are not limited to complications of anesthesia, postoperative infection, incomplete relief of symptoms, recurrence of symptoms, damage to blood vessels, nerves and tendons, deep venous thrombosis, pulmonary embolism and possible need for repeat surgery in the future. Complications: None Estimated Blood Loss: 50 mL Fluids: See anesthesia Findings: Consistent with diagnosis Indications for Surgery: Worsening leg wound and foot wound Name of Procedure Performed 1. Left foot I&D (98982) 2. Left leg I&D (33609) Procedure Details Procedure Details: PRE-PROCEDURE INFORMATION: In the pre-op holding area, the extremity to be operated on was clearly marked and the patient verified correct laterality of the marking. The patient was transferred to the OR table and placed in a supine position. A timeout was performed in which identification of the correct patient, procedure, location, and materials was done. The _ foot and leg were prepped and draped in normal sterile fashion. The foot and leg were exsanguinated and the _ tourniquet was inflated to 250 mmHg. DESCRIPTION OF PROCEDURE: Attention was directed to the left foot where area of fluctuance was noted. An incision was made over this area and was deepened through blunt dissection. The incision was deepened to the level of abscess and bone. Care was taken to the dissection to avoid any neurovascular and tendinous structures. The incision was deepened to the bone, and the abscess appeared to be purulent fluid consistent with pus. The cortices of the bone was then removed with rongeur an all necrotic tissue. After the abscess was drained, the area was irrigated with 3 L normal saline using cysto tubing. Deep cultures were then obtained from the wound. The area was then inspected and any areas of tracking, especially along the tendons were also drained. The wound was packed with Betadine-soaked gauze and we will need to be closed at a later date. Attention was directed to the left leg where area of fluctuance was noted. An incision was made over this area and was deepened through blunt dissection. The incision was deepened to the level of abscess and bone. Care was taken to the dissection to avoid any neurovascular and tendinous structures. The incision was deepened, and the abscess appeared to be purulent fluid consistent with pus. The rongeur removed all necrotic tissue. After the abscess was drained, the area was irrigated with 3 L normal saline using cysto tubing. Deep cultures were then obtained from the wound. The area was then inspected and any areas of tracking, especially along the tendons were also drained. The wound was packed with Betadine-soaked gauze and we will need to be closed at a later date. POSTOPERATIVE INFORMATION: The patient tolerated the above noted procedure and anesthesia well and was transferred to the PACU with vital signs stable, and vascular status intact with capillary refill intact to all digits. Deep cultures were taken of the foot and the leg. patient will need multiple debridements on the foot as well as the leg. continue IV antibiotics. we will take her back to the OR on Saturday. Condition Good Disposition Still a Patient STEFF TREJO DPM Jan 01, 2025 13:07
[2025-01-01] MEDS: ACCU-CHEK COMFORT CURVE STRIP VI ONE (13:15)
[2025-01-01] MEDS ORDERED: HYDROmorphone HCL 2 MG/ML VL/or syr IV PRN (13:15)
--- NOTE | 2025-01-01 20:13 | DVHPNRES ---
Progress Note Date Seen: Jan 01, 2025 Resident Creating Document: KEYSHAWN POLLARD RESIDENT Medical Necessity Reason Pt with a Central, PICC or Fol: No Subjective Review of Systems 54-year-old female with past medical history of Type 2 diabetes mellitus, HTN, HLD, section brought in by EMS due to left foot pain which started around 4:30 p.m. suddenly during walking around the grocery store yesterday. The left foot pain is localized, 9/10 intensity, radiates to ferrari of the tibia, aggravated on walking or making pressure and no relieving factor. She reports that her leg was red, swollen and tender with increased temperature. She went to [facility] and had gotten debridement twice in the last month after she had noticed a blister in her toe, which was tense and painful and for she had gone to her PCP who recommended her to go to the hospital. 2nd on debridement done on 12/09/2024. Patient received IV antibiotic at home with right arm PICC line and wound dressing changes by visiting nurse. As per patient, recent visit 4 days ago and fluid drainage from left tibial region. Patient denies any history of trauma, injury, MVA or recent sick contact. Blood sugar ranges at home 120-200. Currently denies any chest pain, SOB, cough, abdominal pain, dysuria. PAST MEDICAL HISTORY: Type 2 diabetes mellitus, HTN, HLD, section Surgical History (Other): LT great toe debridement on December 04 and December 09, C- section x1 Family History: noncontributory Social History Smoker: Non-Smoker, Denies ETOH Use Drugs: Denies Drug Use Lives In: Home Allergy :no known allergy PCP: ROS: Today the patient was seen and examined by me at the bedside. Overnight events were reviewed. The patient is awaiting for her procedure of debridement today. Rest of the ROS is negative Objective vital signs Vital Sign Date Time Temp Pulse Resp B/P (MAP) Pulse Ox O2 Delivery O2 Flow Rate FiO2 01/01/25 17:14 98.5 116 17 123/82 (96) 96 98.5 01/01/25 13:35 Room Air 0 95 Total Intake and Output 12/31/24 12/31/24 01/01/25 15:00 23:00 07:00 Intake Total 50 ml 650 ml 300 ml Output Total 550 ml Balance 50 ml 100 ml 300 ml medications Current Medications Medications Dose Ordered Sig/Garima Route Start Time Stop Time Status Last Admin Dose Admin Nitroglycerin 0.4 mg Q5MINP PRN SL 12/31/24 00:00 Morphine Sulfate 2 mg Q30M PRN IV 12/31/24 00:00 12/31/24 22:02 2 MG Pantoprazole Sodium 40 mg DAILY@0600 PO 12/31/24 06:00 12/31/24 05:53 40 MG Enoxaparin Sodium 40 mg DAILY SC 12/31/24 10:00 12/31/24 09:04 40 MG Amlodipine Besylate 5 mg DAILY PO 12/31/24 10:00 12/31/24 09:05 5 MG Lisinopril 20 mg DAILY PO 12/31/24 10:00 12/31/24 09:04 20 MG Insulin Glargine 20 units HS SC 12/31/24 22:00 12/31/24 22:00 20 UNITS Diagnostic Test (Pha) 1 strip ACHS 12/31/24 07:00 01/01/25 17:14 1 STRIP Insulin Human Regular HS SC 12/31/24 22:00 12/31/24 22:00 4 UNITS Insulin Human Regular AC SC 12/31/24 07:00 01/01/25 17:15 3 UNITS Dextrose 50 ml UD PRN IV 12/31/24 00:00 Sodium Chloride 1,000 ml @ 100 mls/hr Q10H IV 12/31/24 00:00 01/01/25 15:48 100 MLS/HR Vancomycin HCl 0 ml @ 0 mls/hr UD IV 12/31/24 00:00 Cefepime HCl 50 ml @ 12.5 mls/hr Q12HR IV 12/31/24 10:00 01/01/25 10:08 12.5 MLS/HR Atorvastatin Calcium 40 mg HS PO 12/31/24 22:00 12/31/24 21:58 40 MG Acetaminophen/ Hydrocodone Bitart 1 tab Q6HPRN PRN PO 12/31/24 04:15 12/31/24 05:53 1 TAB Clindamycin Phosphate 50 ml @ 50 mls/hr Q8HR IV 12/31/24 14:00 01/01/25 14:38 50 MLS/HR Morphine Sulfate 2 mg Q4HPRN PRN IV 12/31/24 13:30 01/01/25 11:50 2 MG Mupirocin 1 applic BID TOP 12/31/24 22:00 01/01/25 10:07 1 APPLIC Diphenhydramine HCl 25 mg Q6HP PRN PO 01/01/25 11:30 01/01/25 11:49 25 MG Vancomycin HCl 200 ml @ 200 mls/hr Q12H IV 01/02/25 05:00 Examination Pt is lying on bed General Appearance: Alert, Oriented X3, Cooperative, Not in acute distress HEENT: Atraumatic, Mucous membranes moist/pink Respiratory: Clear to auscultation, Normal air movement, No added sounds Cardiovascular: Regular rate, Normal S1, Normal S2, No murmurs Abdominal: Active bowel sounds, Soft, no distention, no tenderness Extremities: No edema, Normal pulses, plantar aspect of the 1st metatarsophalangeal joint and great toe has been debrided on the left leg. left ferrari abscess with draining pus seen, peeling of the skin from [id number] till the foot seen, left foot is red, swollen Skin: No Significant rash, except past surgical scars Neuro: Normal speech, sensorimotor deficits none Psych/Mental Status: Mental status NL, Mood NL Nurse was there as natural resource officer during examination laboratory and microbiology Laboratory Tests 01/01/25 07:08 Test 01/01/25 07:08 Range/Units Serum Glucose 191 H 74-106 mg/dL Microbiology Date/Time Source Procedure Growth Status 12/31/24 13:38 Toe Letf (Big) Gram Stain - Final Resulted 12/31/24 13:38 Toe Letf (Big) Wound Culture - Preliminary Resulted 12/30/24 19:20 Blood Blood Culture - Preliminary NO GROWTH AFTER 48 HOURS OF INCUBATION. Resulted Labs and/or images reviewed: Labs reviewed by me, Image(s) reviewed by me Problem List/Assessment/Plan Problem List/Assessment/Plan # left lower extremity cellulitis with abscess -PICC line placed on right arm for IV ABX -Lactic acid 1.3 -Left tibia and fibula: - Multiple radiolucent foreign bodies are noted in the mid lateral tibia and fibular soft tissues. -x-ray left foot: Increased tissue density on the dorsal as well as plantar surface of the distal metatarsals proximal phalanges. -CT left lower extremity WITHOUT CONTRAST: Findings consistent with cellulitis in the left lower leg with large fluid collection along the anterolateral aspect of the left lower leg, possibly within or adjacent to the anterior compartment musculature, most consistent with abscess, containing complex fluid and numerous locules of gas. - Soft tissue swelling in the great toe with wound at the plantar aspect of the 1st MTP joint, likely cellulitis. - No definite evidence for osteomyelitis in the left lower leg or left foot. -NSS 100 CC/HOURS -Cefepime IV1 g b.i.d. -Vancomycin IV -Clindamycin IV -Blood culture and wound culture orders -Arterial duplex showed There is no evidence for peripheral vascular insufficiency in the right lower extremity. -Venous Doppler showed No left femoropopliteal venous thrombosis; Contralateral common femoral vein is patent. -Surgery consult- her left great toe open which will be treated by Dr. Leung; Incision and drainage of upper left leg will be done at the same time by Dr. Leung -Podiatry did procedure today: Abscess drained, Deep cultures were taken of the foot and the leg. patient will need multiple debridement on the foot as well as the leg. continue IV antibiotics. we will take her back to the OR on Saturday # TYPE 2 DIABETES MELLITUS WITH HYPERGLYCEMIA --Home medication metformin 500 mg p.o. b.i.d., Lantus insulin 20 units bedtime -BMP blood glucose 254 -Continuing Lantus 50 units SC with name -Insulin sliding scale -Monitor blood sugars -HbA1c ordered # ESSENTIAL HYPERTENSION -Lisinopril 20 mg p.o. daily -Amlodipine5 mg p.o. daily # HYPERLIPIDEMIA -Atorvastatin 40 mg p.o. daily -Lpid profile # NORMOCYTIC NORMOCHROMIC ANEMIA -Hemoglobin 11.2, HCT 34.4 -MCV 88.3, MCH 28.9, RDW 14.1 -No signs symptoms of active bleeding -Iron panel, ferritin level orders -Stool for occult blood test # MORBID OBESITY, BMI 36.7 -Life style modification Diet: Diabetic diet GI prophylaxis: Pantoprazole 40 mg p.o. daily DVT prophylaxis: Lovenox 40 mg sc daily Goals of care discussed with the patient for more than 27 minutes: Full code status Case discussed with Dr. West, patient and nurse. Plan discussed with: Patient, Other (rn) My Orders My Orders Orders - KEYSHAWN POLLARD RESIDENT Procedure Category Date Status Time Diphenhdramine PHA 01/01/25 In Process Capsule (Benadryl 11:30 Electrocardigram EKG 01/01/25 Logged 15:06 Dietary Evaluation Review Comments: 1) CCHO 60gm + cardiac diet 2) Gasper 1 pk BID 3) Refer Sw[facility]per for diabetes education Expected Outcomes/Goals: Wound to improve Fu 3-5 days Date of Service: Jan 01, 2025 Billing Provider: ABDIAS WEST MD Common Visit Codes: [id number] INP/OBS CARE(HIGH) KEYSHAWN POLLARD RESIDENT Jan 01, 2025 20:13 ABDIAS WEST MD Jan 02, 2025 00:16
[2025-01-02] VITALS (8 sets, daily range): BP systolic 101–171; BP diastolic 77–102; PULSE 86–97; RESP 17–19; TEMP 97.6–98.8; O2SAT 95–99
[2025-01-02] MEDS: VANCOMYCIN 1GM/200ML PM 200 ML IV SCH (06:18)
[2025-01-02 07:52] LABS: Hematocrit 32.4 % (36.0-46.0); Hemoglobin 10.7 g/dL (12.2-16.2); Mean Corpuscular Hemoglobin 29.1 pg (28.0-32.0); Mean Corpuscular Volume 88.5 fL (80.0-100.0); Nucleated Red Blood Cells % 0.1 %
[2025-01-02 07:56] LABS: Alanine Aminotransferase 16 U/L (7-40); Albumin 3.9 g/dL (3.2-4.8); Alkaline Phosphatase 135 U/L (46-116); Anion Gap 9 (5-15); BUN/Creatinine Ratio 18.0 (10.0-20.0); Bilirubin, Total 0.7 mg/dL (0.2-1.0); Blood Urea Nitrogen 16 mg/dL (9-23); Calcium 9.7 mg/dL (8.7-10.4); Carbon Dioxide 24 mmol/L (20-31); Chloride 105 mmol/L (98-107); Glucose 166 mg/dL (74-106); Potassium 4.0 mmol/L (3.5-5.1); Sodium 138 mmol/L (136-145); Total Protein 7.3 g/dL (5.7-8.2)
--- NOTE | 2025-01-02 09:27 | ECG ---
[facility] Test Date: 2025-01-01 Test Time: 07:51:54 Pat Name: BINH MARIA Department: Room: 0298 B Gender: F Tax Manager: JULIANNE : 1970 Requested By: KEYSHAWN POLLARD Order Number: [id number] Reading MD: Triston Pickett Measurements Intervals [place] Rate: 87 P: 21 RI: 174 QRS: 42 QRSD: 79 T: 33 QT: 371 QTc: 447 Interpretive Statements Sinus rhythm Anteroseptal infarct, old Electronically Signed On 01-06-2025 13:51:22 PDT by Triston Pickett Please click the below link to view image of tracing.
--- NOTE | 2025-01-02 11:12 | DVHPNRES ---
Progress Note Date Seen: Jan 02, 2025 Resident Creating Document: TYRA PAYNE RESIDENT Medical Necessity Reason Pt with a Central, PICC or Fol: No Subjective Review of Systems 54-year-old female with past medical history of Type 2 diabetes mellitus, HTN, HLD, section brought in by EMS due to left foot pain which started around 4:30 p.m. suddenly during walking around the grocery store yesterday. The left foot pain is localized, 9/10 intensity, radiates to ferrari of the tibia, aggravated on walking or making pressure and no relieving factor. She reports that her leg was red, swollen and tender with increased temperature. She went to [facility] and had gotten debridement twice in the last month after she had noticed a blister in her toe, which was tense and painful and for she had gone to her PCP who recommended her to go to the hospital. 2nd on debridement done on 12/09/2024. Patient received IV antibiotic at home with right arm PICC line and wound dressing changes by visiting nurse. As per patient, recent visit 4 days ago and fluid drainage from left tibial region. Patient denies any history of trauma, injury, MVA or recent sick contact. Blood sugar ranges at home 120-200. Currently denies any chest pain, SOB, cough, abdominal pain, dysuria. PAST MEDICAL HISTORY: Type 2 diabetes mellitus, HTN, HLD, section Surgical History (Other): LT great toe debridement on December 04 and December 09, C- section x1 Family History: noncontributory Social History Smoker: Non-Smoker, Denies ETOH Use Drugs: Denies Drug Use Lives In: Home Allergy :no known allergy PCP: 01/02 interval events: Day 1 status post debridement of the left leg and left foot,The patient reports having pain at the debridement site, but improved. She denies any chest pain, shortness of breath, fever, abdominal pain or any other complaints at this time. ROS:The patient was seen and examined by me at the bedside. Overnight events were reviewed. The patient reports having pain at the debridement site, but improved. No new complaints reported. Rest of the ROS is negative Objective vital signs Vital Sign Date Time Temp Pulse Resp B/P (MAP) Pulse Ox O2 Delivery O2 Flow Rate FiO2 01/02/25 10:01 130/87 01/02/25 08:52 98.8 86 18 97 98.8 01/01/25 20:00 Room Air* 0 21 Total Intake and Output 01/01/25 01/01/25 01/02/25 15:00 23:00 07:00 Intake Total 100 ml 750 ml 650 ml Balance 100 ml 750 ml 650 ml medications Current Medications Medications Dose Ordered Sig/Garima Route Start Time Stop Time Status Last Admin Dose Admin Nitroglycerin 0.4 mg Q5MINP PRN SL 12/31/24 00:00 Morphine Sulfate 2 mg Q30M PRN IV 12/31/24 00:00 01/02/25 06:43 2 MG Pantoprazole Sodium 40 mg DAILY@0600 PO 12/31/24 06:00 01/02/25 06:19 40 MG Enoxaparin Sodium 40 mg DAILY SC 12/31/24 10:00 01/02/25 10:00 40 MG Amlodipine Besylate 5 mg DAILY PO 12/31/24 10:00 01/02/25 10:01 5 MG Lisinopril 20 mg DAILY PO 12/31/24 10:00 01/02/25 10:00 20 MG Insulin Glargine 20 units HS FL 12/31/24 22:00 01/02/25 00:43 20 UNITS Diagnostic Test (Pha) 1 strip ACHS 12/31/24 07:00 01/02/25 06:56 1 STRIP Insulin Human Regular HS FL 12/31/24 22:00 01/01/25 22:00 3 UNITS Insulin Human Regular AC SC 12/31/24 07:00 01/02/25 06:55 3 UNITS Dextrose 50 ml UD PRN IV 12/31/24 00:00 Sodium Chloride 1,000 ml @ 100 mls/hr Q10H IV 12/31/24 00:00 01/02/25 02:00 100 MLS/HR Vancomycin HCl 0 ml @ 0 mls/hr UD IV 12/31/24 00:00 Cefepime HCl 50 ml @ 12.5 mls/hr Q12HR IV 12/31/24 10:00 01/02/25 10:01 12.5 MLS/HR Atorvastatin Calcium 40 mg HS PO 12/31/24 22:00 01/01/25 23:05 40 MG Acetaminophen/ Hydrocodone Bitart 1 tab Q6HPRN PRN PO 12/31/24 04:15 12/31/24 05:53 1 TAB Clindamycin Phosphate 50 ml @ 50 mls/hr Q8HR IV 12/31/24 14:00 01/02/25 06:18 50 MLS/HR Morphine Sulfate 2 mg Q4HPRN PRN IV 12/31/24 13:30 01/01/25 20:12 2 MG Mupirocin 1 applic BID TOP 12/31/24 22:00 01/02/25 09:58 1 APPLIC Diphenhydramine HCl 25 mg Q6HP PRN PO 01/01/25 11:30 01/01/25 11:49 25 MG Vancomycin HCl 200 ml @ 200 mls/hr Q12H IV 01/02/25 05:00 01/02/25 06:18 200 MLS/HR Examination Pt is lying on bed General Appearance: Alert, Oriented X3, Cooperative, Not in acute distress HEENT: Atraumatic, Mucous membranes moist/pink Respiratory: Clear to auscultation, Normal air movement, No added sounds Cardiovascular: Regular rate, Normal S1, Normal S2, No murmurs Abdominal: Active bowel sounds, Soft, no distention, no tenderness Extremities: No edema, Normal pulses, plantar aspect of the 1st metatarsophalangeal joint and great toe has been debrided on the left leg. left ferrari abscess with draining pus seen, peeling of the skin from [id number] till the foot seen, left foot is red, swollen Skin: No Significant rash, except past surgical scars Neuro: Normal speech, sensorimotor deficits none Psych/Mental Status: Mental status NL, Mood NL Nurse was there as associate professor of sociology during examination laboratory and microbiology Laboratory Tests 01/02/25 07:07 Test 01/02/25 07:07 Range/Units Serum Glucose 166 H 74-106 mg/dL Microbiology Date/Time Source Procedure Growth Status 01/01/25 12:50 Leg Left Gram Stain Pending Resulted 01/01/25 12:50 Leg Left Anaerobic Culture Pending Resulted 01/01/25 12:50 Leg Left Aerobic Culture - Preliminary Resulted 12/30/24 19:20 Blood Blood Culture - Preliminary NO GROWTH AFTER 48 HOURS OF INCUBATION. Resulted Labs and/or images reviewed: Labs reviewed by me, Image(s) reviewed by me Problem List/Assessment/Plan Problem List/Assessment/Plan # left lower extremity cellulitis with abscess #Left hallux osteomyelitis #Left hallux cellulitis #Left leg abscess #Left leg necrotizing fasciitis -PICC line placed on right arm for IV ABX -Lactic acid 1.3 -Left tibia and fibula: - Multiple radiolucent foreign bodies are noted in the mid lateral tibia and fibular soft tissues. -x-ray left foot: Increased tissue density on the dorsal as well as plantar surface of the distal metatarsals proximal phalanges. -CT left lower extremity WITHOUT CONTRAST: Findings consistent with cellulitis in the left lower leg with large fluid collection along the anterolateral aspect of the left lower leg, possibly within or adjacent to the anterior compartment musculature, most consistent with abscess, containing complex fluid and numerous locules of gas. - Soft tissue swelling in the great toe with wound at the plantar aspect of the 1st MTP joint, likely cellulitis. - No definite evidence for osteomyelitis in the left lower leg or left foot. -NSS 100 CC/HOURS -Cefepime IV1 g b.i.d. -Vancomycin IV -Clindamycin IV -Blood culture and wound culture orders -Arterial duplex showed There is no evidence for peripheral vascular insufficiency in the right lower extremity. -Venous Doppler showed No left femoropopliteal venous thrombosis; Contralateral common femoral vein is patent. -Surgery consult- her left great toe open which will be treated by Dr. Leung; Incision and drainage of upper left leg will be done at the same time by Dr. Leung -Podiatry did procedure (Left foot I&D, Left leg I&D on 01/01/2025): Abscess drained, Deep cultures were taken of the foot and the leg. patient will need multiple debridement on the foot as well as the leg. continue IV antibiotics. we will take her back to the OR on Saturday (01/04/2025) # TYPE 2 DIABETES MELLITUS WITH HYPERGLYCEMIA --Home medication metformin 500 mg p.o. b.i.d., Lantus insulin 20 units bedtime -BMP blood glucose 254 -Continuing Lantus 50 units SC with name -Insulin sliding scale -Monitor blood sugars -HbA1c ordered # ESSENTIAL HYPERTENSION -Lisinopril 20 mg p.o. daily -Amlodipine5 mg p.o. daily # HYPERLIPIDEMIA -Atorvastatin 40 mg p.o. daily -Lpid profile # NORMOCYTIC NORMOCHROMIC ANEMIA -Hemoglobin 11.2, HCT 34.4 -MCV 88.3, MCH 28.9, RDW 14.1 -No signs symptoms of active bleeding -Iron panel, ferritin level orders -Stool for occult blood test # MORBID OBESITY, BMI 36.7 -Life style modification Diet: Diabetic diet GI prophylaxis: Pantoprazole 40 mg p.o. daily DVT prophylaxis: Lovenox 40 mg sc daily GI prophylaxis: Goals of care discussed with the patient for more than 27 minutes: Full code status Case discussed with , patient and RN Plan discussed with: Patient, Other (RN) Dietary Evaluation Review Comments: 1) CCHO 60gm + cardiac diet 2) Gasper 1 pk BID 3) Refer [employer] Bailiff for diabetes education Expected Outcomes/Goals: Wound to improve Fu 3-5 days Date of Service: Jan 02, 2025 Billing Provider: ABDIAS WEST MD Common Visit Codes: [id number] INP/OBS CARE(HIGH) TYRA PAYNE RESIDENT Jan 02, 2025 11:12 ABDIAS WEST MD Jan 03, 2025 09:38
[2025-01-03 01:00] VITALS: BP 149/88; PULSE 89; RESP 18; TEMP 98.3; O2SAT 98
[2025-01-03 05:00] VITALS: BP 130/81; PULSE 94; RESP 18; TEMP 98.2; O2SAT 98
[2025-01-03 07:58] LABS: Hematocrit 35.2 % (36.0-46.0); Hemoglobin 11.6 g/dL (12.2-16.2); Mean Corpuscular Hemoglobin 29.1 pg (28.0-32.0); Mean Corpuscular Volume 88.1 fL (80.0-100.0); Nucleated Red Blood Cells % 0.1 %
[2025-01-03 08:03] LABS: Anion Gap 9 (5-15); Carbon Dioxide 26 mmol/L (20-31); Chloride 103 mmol/L (98-107); Potassium 4.0 mmol/L (3.5-5.1); Sodium 138 mmol/L (136-145)
[2025-01-03 08:04] LABS: Calcium 10.0 mg/dL (8.7-10.4)
[2025-01-03 08:09] LABS: BUN/Creatinine Ratio 20.2 (10.0-20.0); Blood Urea Nitrogen 18 mg/dL (9-23); Glucose 172 mg/dL (74-106)
[2025-01-03 09:00] VITALS: BP 142/92; PULSE 92; RESP 17; TEMP 98.7; O2SAT 97
[2025-01-03 12:41] VITALS: BP 161/94; PULSE 89; RESP 16; TEMP 98.6; O2SAT 98
[2025-01-03] MEDS: HYDROmorphone HCL 2 MG/ML VL/or syr IV PRN (14:16)
--- NOTE | 2025-01-03 14:51 | DVHPNRES ---
Progress Note Date Seen: Jan 03, 2025 Resident Creating Document: KEYSHAWN POLLARD RESIDENT Medical Necessity Reason Pt with a Central, PICC or Fol: No Subjective Review of Systems 54-year-old female with past medical history of Type 2 diabetes mellitus, HTN, HLD, section brought in by EMS due to left foot pain which started around 4:30 p.m. suddenly during walking around the grocery store yesterday. The left foot pain is localized, 9/10 intensity, radiates to ferrari of the tibia, aggravated on walking or making pressure and no relieving factor. She reports that her leg was red, swollen and tender with increased temperature. She went to [facility] and had gotten debridement twice in the last month after she had noticed a blister in her toe, which was tense and painful and for she had gone to her PCP who recommended her to go to the hospital. 2nd on debridement done on 12/09/2024. Patient received IV antibiotic at home with right arm PICC line and wound dressing changes by visiting nurse. As per patient, recent visit 4 days ago and fluid drainage from left tibial region. Patient denies any history of trauma, injury, MVA or recent sick contact. Blood sugar ranges at home 120-200. Currently denies any chest pain, SOB, cough, abdominal pain, dysuria. PAST MEDICAL HISTORY: Type 2 diabetes mellitus, HTN, HLD, section Surgical History (Other): LT great toe debridement on December 04 and December 09, C- section x1 Family History: noncontributory Social History Smoker: Non-Smoker, Denies ETOH Use Drugs: Denies Drug Use Lives In: Home Allergy :no known allergy PCP: ROS: The patient was seen and examined by me at the bedside. Overnight events were reviewed. The patient reports having pain at the debridement site, but improved. she rates the pain as 8/ 10 which is intermittent. She says it increases on walking to the bathroom. No other new complaints reported. Rest of the ROS is negative. Objective vital signs Vital Sign Date Time Temp Pulse Resp B/P (MAP) Pulse Ox O2 Delivery O2 Flow Rate FiO2 01/03/25 14:16 89 16 161/94 01/03/25 12:41 98.6 98 98.6 01/03/25 08:00 Room Air* 0 21 Total Intake and Output 01/02/25 01/02/25 01/03/25 15:00 23:00 07:00 Intake Total 550 ml 425 ml Balance 550 ml 425 ml medications Current Medications Medications Dose Ordered Sig/Garima Route Start Time Stop Time Status Last Admin Dose Admin Nitroglycerin 0.4 mg Q5MINP PRN SL 12/31/24 00:00 Morphine Sulfate 2 mg Q30M PRN IV 12/31/24 00:00 01/02/25 21:54 2 MG Pantoprazole Sodium 40 mg DAILY@0600 PO 12/31/24 06:00 01/03/25 05:05 40 MG Enoxaparin Sodium 40 mg DAILY SC 12/31/24 10:00 01/03/25 09:54 40 MG Amlodipine Besylate 5 mg DAILY PO 12/31/24 10:00 01/03/25 09:54 5 MG Lisinopril 20 mg DAILY PO 12/31/24 10:00 01/03/25 09:53 20 MG Insulin Glargine 20 units HS SC 12/31/24 22:00 01/02/25 22:11 20 UNITS Diagnostic Test (Pha) 1 strip ACHS 12/31/24 07:00 01/03/25 11:40 1 STRIP Insulin Human Regular HS SC 12/31/24 22:00 01/02/25 22:11 4 UNITS Insulin Human Regular AC SC 12/31/24 07:00 01/03/25 12:09 3 UNITS Dextrose 50 ml UD PRN IV 12/31/24 00:00 Vancomycin HCl 0 ml @ 0 mls/hr UD IV 12/31/24 00:00 Cefepime HCl 50 ml @ 12.5 mls/hr Q12HR IV 12/31/24 10:00 01/03/25 09:54 12.5 MLS/HR Atorvastatin Calcium 40 mg HS PO 12/31/24 22:00 01/02/25 21:50 40 MG Acetaminophen/ Hydrocodone Bitart 1 tab Q6HPRN PRN PO 12/31/24 04:15 12/31/24 05:53 1 TAB Mupirocin 1 applic BID TOP 12/31/24 22:00 01/03/25 10:03 1 APPLIC Diphenhydramine HCl 25 mg Q6HP PRN PO 01/01/25 11:30 01/01/25 11:49 25 MG Vancomycin HCl 200 ml @ 200 mls/hr Q12H IV 01/02/25 05:00 01/03/25 05:05 200 MLS/HR Hydralazine HCl 10 mg Q6HP PRN IV 01/03/25 12:00 Hydromorphone HCl 0.25 mg Q4HPRN PRN IV 01/03/25 13:00 01/03/25 14:16 0.25 MG Examination Pt is lying on bed General Appearance: Alert, Oriented X3, Cooperative, Not in acute distress HEENT: Atraumatic, Mucous membranes moist/pink Respiratory: Clear to auscultation, Normal air movement, No added sounds Cardiovascular: Regular rate, Normal S1, Normal S2, No murmurs Abdominal: Active bowel sounds, Soft, no distention, no tenderness Extremities: No edema, Normal pulses, plantar aspect of the 1st metatarsophalangeal joint and great toe has been debrided on the left leg and bandages placed with no soakage. left ferrari abscess drained, dressing placed which is not soaked. peeling of the skin from [id number] till the foot seen on the left leg Skin: No Significant rash, except past surgical scars Neuro: Normal speech, sensorimotor deficits none Psych/Mental Status: Mental status NL, Mood NL Nurse was there as burner operator during examination. laboratory and microbiology Laboratory Tests 01/03/25 06:38 Test 01/03/25 06:38 Range/Units Serum Glucose 172 H 74-106 mg/dL Microbiology Date/Time Source Procedure Growth Status 01/01/25 12:50 Leg Left Gram Stain - Final Resulted 01/01/25 12:50 Leg Left Anaerobic Culture - Preliminary Resulted 01/01/25 12:50 Leg Left Aerobic Culture - Preliminary Resulted 12/30/24 19:20 Blood Blood Culture - Preliminary NO GROWTH AFTER 72 HOURS OF INCUBATION. Resulted Labs and/or images reviewed: Labs reviewed by me, Image(s) reviewed by me Problem List/Assessment/Plan Problem List/Assessment/Plan # left lower extremity cellulitis with abscess #Left hallux osteomyelitis #Left hallux cellulitis #Left leg abscess #Left leg necrotizing fasciitis -PICC line placed on right arm for IV ABX -Lactic acid 1.3 -Left tibia and fibula: - Multiple radiolucent foreign bodies are noted in the mid lateral tibia and fibular soft tissues. -x-ray left foot: Increased tissue density on the dorsal as well as plantar surface of the distal metatarsals proximal phalanges. -CT left lower extremity WITHOUT CONTRAST: Findings consistent with cellulitis in the left lower leg with large fluid collection along the anterolateral aspect of the left lower leg, possibly within or adjacent to the anterior compartment musculature, most consistent with abscess, containing complex fluid and numerous locules of gas. - Soft tissue swelling in the great toe with wound at the plantar aspect of the 1st MTP joint, likely cellulitis. - No definite evidence for osteomyelitis in the left lower leg or left foot. -NSS 100 CC/HOURS -Cefepime IV1 g b.i.d. -Vancomycin IV -wound culture- preliminary shows no growth -Clindamycin IV has been stopped today(01/03/2025) -Dilaudid for pain management -Blood culture, pending -Arterial duplex showed There is no evidence for peripheral vascular insufficiency in the right lower extremity. -Venous Doppler showed No left femoropopliteal venous thrombosis; Contralateral common femoral vein is patent. -Surgery consult- her left great toe open which will be treated by Dr. Leung; Incision and drainage of upper left leg will be done at the same time by Dr. Leung -Podiatry did procedure (Left foot I&D, Left leg I&D on 01/01/2025): Abscess drained, Deep cultures were taken of the foot and the leg. patient will need multiple debridement on the foot as well as the leg. continue IV antibiotics. we will take her back to the OR on Saturday (01/04/2025) # TYPE 2 DIABETES MELLITUS WITH HYPERGLYCEMIA --Home medication metformin 500 mg p.o. b.i.d., Lantus insulin 20 units bedtime -BMP blood glucose 254 -Continuing Lantus 50 units SC with name -Insulin sliding scale -Monitor blood sugars -HbA1c ordered # ESSENTIAL HYPERTENSION -Lisinopril 20 mg p.o. daily -Amlodipine5 mg p.o. daily - Hydralazine 10 mg q.6 PRN # HYPERLIPIDEMIA -Atorvastatin 40 mg p.o. daily -Lpid profile # NORMOCYTIC NORMOCHROMIC ANEMIA -Hemoglobin 11.2, HCT 34.4 -MCV 88.3, MCH 28.9, RDW 14.1 -No signs symptoms of active bleeding -Iron panel, ferritin level orders -Stool for occult blood test # MORBID OBESITY, BMI 36.7 -Life style modification Diet: Diabetic diet GI prophylaxis: Pantoprazole 40 mg p.o. daily DVT prophylaxis: Lovenox 40 mg sc daily GI prophylaxis: Goals of care discussed with the patient for more than 27 minutes: Full code status Case discussed with , patient and RN Plan discussed with: Patient, Other (rn) My Orders My Orders Orders - KEYSHAWN POLLARD Procedure Category Date Status Time Hydralazine Injection PHA 01/03/25 In Process (Apresoline Inject 12:00 Dietary Evaluation Review Comments: 1) CCHO 60gm + cardiac diet 2) Gasper 1 pk BID 3) Refer [employer] Tender for diabetes education Expected Outcomes/Goals: Wound to improve Fu 3-5 days Date of Service: Jan 03, 2025 Billing Provider: ABDIAS WEST MD Common Visit Codes: [id number] INP/OBS CARE(HIGH) KEYSHAWN POLLARD RESIDENT Jan 03, 2025 14:51 ABDIAS WEST MD Jan 03, 2025 23:28
[2025-01-03 16:27] VITALS: BP 150/95; PULSE 84; RESP 16; TEMP 98.4; O2SAT 99
[2025-01-03 20:00] VITALS: RESP 18
[2025-01-04] VITALS (7 sets, daily range): BP systolic 124–157; BP diastolic 75–94; PULSE 87–110; RESP 14–19; TEMP 98–98.3; O2SAT 85–99
[2025-01-04 07:31] LABS: Hematocrit 32.1 % (36.0-46.0); Hemoglobin 10.7 g/dL (12.2-16.2); Mean Corpuscular Hemoglobin 29.3 pg (28.0-32.0); Mean Corpuscular Volume 87.9 fL (80.0-100.0); Nucleated Red Blood Cells % 0.1 %
[2025-01-04 07:37] LABS: Chloride 104 mmol/L (98-107); Potassium 4.0 mmol/L (3.5-5.1); Sodium 138 mmol/L (136-145)
[2025-01-04 07:38] LABS: Anion Gap 9 (5-15); Carbon Dioxide 25 mmol/L (20-31)
[2025-01-04 07:39] LABS: Calcium 9.7 mg/dL (8.7-10.4)
[2025-01-04 07:44] LABS: BUN/Creatinine Ratio 19.3 (10.0-20.0); Blood Urea Nitrogen 16 mg/dL (9-23)
[2025-01-04 07:46] LABS: Glucose 166 mg/dL (74-106)
[2025-01-04] MEDS ORDERED: fentaNYL CITRATE 100 MCG/2 ML VL ONE (14:08)
[2025-01-04] MEDS ORDERED: MIDAZOLAM HCL 2MG/2ML 2ml VIAL (1mg/ml) ONE (14:08)
[2025-01-04] MEDS ORDERED: PROPOFOL 10 MG/ML 20 ML IV ONE (14:09)
[2025-01-04] MEDS ORDERED: ONDANSETRON HCL 4 MG/2 ML VIAL ONE (14:09)
[2025-01-04] MEDS ORDERED: METOCLOPRAMIDE HCL 5MG/ml INJ 2ml VIAL ONE (14:09)
[2025-01-04] MEDS ORDERED: LIDOCAINE 1% INJ PF 5ML AMP ONE (14:09)
--- NOTE | 2025-01-04 14:12 | DVHPN2 ---
Subjective This is a 54-year-old female with past medical history of Type 2 diabetes mellitus, HTN, HLD, section brought in by EMS due to left foot pain which started around 4:30 p.m. suddenly during walking around the grocery store. The left foot pain is localized, 9/10 intensity, radiates to ferrari of the tibia, aggravated on walking or making pressure and no relieving factor. Patient went to [facility] on 12/04/2024 due to left great toe pain, swelling eventually wound debridement done and 2nd on debridement done on 12/09/2024. Patient received IV antibiotic at home with right arm PICC line and wound dressing changes by visiting nurse. As per patient, recent visit 4 days ago and fluid drainage from left tibial region. In ER, patient lying on bed and dry gauze cover with tibia and left great toe. Patient denies any history of trauma, injury, MVA or recent sick contact. Blood sugar ranges at home 120-200. Currently denies any chest pain, SOB, cough, abdominal pain, dysuria. Changes from previous H/P or p: No Changes Eyes: No Pain, No Vision change, No Conjunctivae inflammation, No Eyelid inflammation, No Other, No Redness ENT: No Ear pain, No Ear discharge, No Nose pain, No Nose discharge, No Nose congestion, No Mouth pain, No Mouth swelling, No Throat pain, No Throat swelling, No Other Cardiovascular: No Chest Pain, No Palpitations, No Orthopnea, No Paroxysmal Noc. Dyspnea, No Edema, No Lt Headedness, No Other Respiratory: No Cough, No Dry, No Shortness of breath, No SOB with excertion, No Wheezing, No Hemoptysis, No Pleuritic Pain, No Sputum, No Other Gastrointestinal: No Nausea, No Vomiting, No Abdominal Pain, No Diarrhea, No Constipation, No Melena, No Hematochezia, No Other Genitourinary: No Dysuria, No Frequency, No Incontinence, No Hematuria, No Retention, No Other Musculoskeletal: No other, No neck pain, No shoulder pain, No arm pain, No back pain, No hand pain, No leg pain, No foot pain Skin: No Rash, No Lesions, No Jaundice, No Bruising; Other (WOUND PRESENT ON EXTENSOR SURFACE OF THE TIBIA AND LEFT GREAT TOE) Objective Vitals Vital Signs Date Time Temp Pulse Resp B/P (MAP) Pulse Ox O2 Delivery O2 Flow Rate FiO2 01/04/25 10:53 104 18 153/94 01/04/25 09:00 98.3 96 98.3 01/04/25 08:00 Room Air* 0 21 Intake/Output Intake and Output 01/04/25 07:00 Intake Total 1600 ml Balance 1600 ml Intake Oral 1100 ml IV Total 500 ml # Voids 8 # Bowel Movements 4 Exam Dermatological: Skin is dry with mild erythema and some maceration around the wound site No gross deformities noted Mild non-pitting edema present bilaterally Large dorsal hallux wound with mixed fibrotic, granular, exposed tendon, with serous drainage Left Longitudinal leg wound with surrounding erythema and swelling Vascular: Dorsalis pedis and posterior tibial pulses are 1+ bilaterally Capillary refill is under 2 seconds Skin temperature is warm bilaterally Neurologic: Protective sensation is absent on the plantar forefoot bilaterally Monofilament testing reveals decreased sensation in multiple plantar sites Musculoskeletal: Range of motion at the ankle and MTP joints is within normal limits. Strength is 5/5 in all tested muscle groups. Gait is antalgic due to offloading of the affected limb. Medications Current Medications Medications Dose Ordered Sig/Garima Route Start Time Stop Time Status Last Admin Dose Admin Pantoprazole Sodium 40 mg DAILY@0600 PO 12/31/24 06:00 01/03/25 05:05 40 MG Enoxaparin Sodium 40 mg DAILY SC 12/31/24 10:00 01/03/25 09:54 40 MG Amlodipine Besylate 5 mg DAILY PO 12/31/24 10:00 01/04/25 08:46 5 MG Lisinopril 20 mg DAILY PO 12/31/24 10:00 01/04/25 08:46 20 MG Insulin Glargine 20 units HS SC 12/31/24 22:00 01/03/25 22:10 20 UNITS Diagnostic Test (Pha) 1 strip ACHS 12/31/24 07:00 01/04/25 11:53 1 STRIP Insulin Human Regular AC SC 12/31/24 07:00 01/04/25 11:54 2 UNITS Dextrose 50 ml UD PRN IV 12/31/24 00:00 Vancomycin HCl 0 ml @ 0 mls/hr UD IV 12/31/24 00:00 Atorvastatin Calcium 40 mg HS PO 12/31/24 22:00 01/03/25 21:59 40 MG Acetaminophen/ Hydrocodone Bitart 1 tab Q6HPRN PRN PO 12/31/24 04:15 12/31/24 05:53 1 TAB Mupirocin 1 applic BID TOP 12/31/24 22:00 01/04/25 08:47 1 APPLIC Diphenhydramine HCl 25 mg Q6HP PRN PO 01/01/25 11:30 01/01/25 11:49 25 MG Hydralazine HCl 10 mg Q6HP PRN IV 01/03/25 12:00 Hydromorphone HCl 0.25 mg Q4HPRN PRN IV 01/03/25 13:00 01/04/25 10:53 0.25 MG Vancomycin HCl 200 ml @ 200 mls/hr Q12H IV 01/04/25 17:00 Piperacillin Sod/ Tazobactam Sod 100 ml @ 25 mls/hr Q8HR IV 01/04/25 22:00 Laboratory Results Laboratory Tests 01/04/25 06:40 Chemistry Test 01/04/25 06:40 Calcium Level 9.7 mg/dL (8.7-10.4) Microbiology Microbiology Date/Time Source Procedure Growth Status 01/01/25 12:50 Leg Left Gram Stain - Final Resulted 01/01/25 12:50 Leg Left Anaerobic Culture - Preliminary Resulted 01/01/25 12:50 Leg Left Aerobic Culture - Preliminary Resulted 12/30/24 19:20 Blood Blood Culture - Preliminary NO GROWTH AFTER 72 HOURS OF INCUBATION. Resulted Assessment/Plan Assessment/Plan ASSESSMENT: Patient is a 54 year old seen on the floor follow up s/p foot I&D PLAN: - The patients chart was reviewed, clinical findings were discussed with the patient, the etiologies of the conditions were discussed in detail, and a treatment plan was agreed to at this time, with both oral and written instructions provided. - reviewed advanced imaging - reviewed all of the labs and pathology - discussed plan is to perform a subsequent incision and drainage - patient has been NPO since midnight - take him to the OR today - it was determined that multiple I&Ds will be necessary to save the limb - evaluted patients both feet and there is excessive dryness that patient would benefit from routine foot care as an outpatient - can weightbear as tolerated in postoperative shoe All questions were answered and concerns addressed to the patient's satisfaction. The patient was given the phone number to the clinic and was told how to make contact with the clinic should any concerns or questions arise. Patient understands that if any questions or concerns arise prior to the next appointment, we should be contacted immediately. FOLLOW-UP: Continue to follow while inpatient Plan discussed with: Patient My Orders Orders - STEFF TREJO DPM Procedure Category Date Status Time Npo (Nothing By DIET 01/04/25 Transmitted Mouth) Diet Breakfast Obtain Consent For: ORDERS 01/03/25 Transmitted 17:43 Problem List: (1) Leg wound, left (2) Cellulitis of leg, left Date of Service: Jan 04, 2025 Billing Provider: STEFF TREJO DPM Common Visit Codes: [id number] INP/OBS CARE(HIGH) STEFF TREJO DPM Jan 04, 2025 14:12
[2025-01-04] MEDS: BUPIVACAINE 0.5% P/F INJ 10 ML VIAL ONE (14:41)
[2025-01-04] MEDS: ACETAMINOPHEN IV 1000 MG/100ML (10MG/ML) IV ONE (15:15)
[2025-01-04] MEDS: ACETAMINOPHEN IV 100 ML IV ONE (15:17)
[2025-01-04] MEDS ORDERED: HYDROmorphone HCL 2 MG/ML VL/or syr ONE (15:23)
[2025-01-04] MEDS: HYDROmorphone HCL 2 MG/ML VL/or syr IV PRN (15:43)
[2025-01-04] MEDS ORDERED: HYDROmorphone HCL 2 MG/ML VL/or syr IV PRN (15:45)
[2025-01-04] MEDS: VANCOMYCIN 1GM/200ML PM 200 ML IV SCH (17:33)
--- NOTE | 2025-01-04 18:28 | DVHPNRES ---
Progress Note Date Seen: Jan 04, 2025 Resident Creating Document: BRETT SILVA RESIDENT Has the PT tested + for MRSA If YES, has PT been informed?: Yes Medical Necessity Reason Pt with a Central, PICC or Fol: No Subjective Review of Systems Patient is a 54 year female with past medical history of type 2 diabetes mellitus, hypertension, and hyperlipidemia, who presented to the ED chief complaint of foot pain. Patient refers progressive onset of left foot and calf pain, described as throbbing, intensity 9/10, which was aggravated by movement and placing pressure on the extremity. She states her left calf was erythematous, swollen, warm to the touch, and very painful. She states that in November she will to her left foot swollen and blistering, for which she sought care at [facility] on 12/04/2024 where she was hospitalized and to incision and debridement procedures for performed and she was sent home on IV antibiotics with a PICC line. She states she was complaint with treatment as home health was coming for antibiotic administration and dressing changes. On evaluation in the ED, initial labs sheow WBC 5.1, Hb 11.2, sodium 139, potassium 4.1, creatinine 0.88, lactic acid 1.3, and serum glucose 254. Chest xray showed no acute cardiopulmonary disease. Foot xray showed increased tissue density on the dorsal and plantar surface of the distal metatarsals proximal phalanges., with subsequent imaging showing radiolucent foreign bodies in the mid lateral tibia and fibular soft tissues. She was admitted for further work up and initiation of antibiotic treatment. Patient seen at bedside. Patient states she feels well, however she began to cry because she is worried about her foot requiring another procedure. She states the pain in her left leg and foot have greatly improved, and that she is able to ambulate to the restroom with minor difficulty. She currently denies any fever, chills, pain in other extremities, nausea, vomiting, shortness of breath, palpitations, or other symptoms. Vitals have remained stable. Follow up labs within normal limits. Preliminary wound cultures from previous procedure are currently negative. She was scheduled for I&D of the left foot today. we will continue on IV antibiotic therapy, pain has been discontinued, and Zosyn has been started. We will continue to monitor. Objective vital signs Vital Sign Date Time Temp Pulse Resp B/P (MAP) Pulse Ox O2 Delivery O2 Flow Rate FiO2 7/28/25 16:51 98.2 90 16 125/75 (92) 94 98.2 01/04/25 14:46 Mask 8.0 01/04/25 08:00 21 Total Intake and Output 01/03/25 01/03/25 01/04/25 15:00 23:00 07:00 Intake Total 50 ml 1200 ml 350 ml Balance 50 ml 1200 ml 350 ml medications Current Medications Medications Dose Ordered Sig/Garima Route Start Time Stop Time Status Last Admin Dose Admin Pantoprazole Sodium 40 mg DAILY@0600 PO 12/31/24 06:00 01/03/25 05:05 40 MG Enoxaparin Sodium 40 mg DAILY SC 12/31/24 10:00 01/03/25 09:54 40 MG Amlodipine Besylate 5 mg DAILY PO 12/31/24 10:00 01/04/25 08:46 5 MG Lisinopril 20 mg DAILY PO 12/31/24 10:00 01/04/25 08:46 20 MG Insulin Glargine 20 units HS SC 12/31/24 22:00 01/03/25 22:10 20 UNITS Diagnostic Test (Pha) 1 strip ACHS 12/31/24 07:00 01/04/25 17:00 1 STRIP Insulin Human Regular AC SC 12/31/24 07:00 01/04/25 11:54 2 UNITS Dextrose 50 ml UD PRN IV 12/31/24 00:00 Vancomycin HCl 0 ml @ 0 mls/hr UD IV 12/31/24 00:00 Atorvastatin Calcium 40 mg HS PO 12/31/24 22:00 01/03/25 21:59 40 MG Acetaminophen/ Hydrocodone Bitart 1 tab Q6HPRN PRN PO 12/31/24 04:15 12/31/24 05:53 1 TAB Mupirocin 1 applic BID TOP 12/31/24 22:00 01/04/25 08:47 1 APPLIC Diphenhydramine HCl 25 mg Q6HP PRN PO 01/01/25 11:30 01/01/25 11:49 25 MG Hydralazine HCl 10 mg Q6HP PRN IV 01/03/25 12:00 Hydromorphone HCl 0.25 mg Q4HPRN PRN IV 01/03/25 13:00 01/04/25 10:53 0.25 MG Vancomycin HCl 200 ml @ 200 mls/hr Q12H IV 01/04/25 17:00 01/04/25 17:33 200 MLS/HR Piperacillin Sod/ Tazobactam Sod 100 ml @ 25 mls/hr Q8HR IV 01/04/25 22:00 Examination General: Patient is comfortable, however with teary affect, alert and oriented in person place and time. Patient following commands HEENT: Normocephalic, atraumatic, EOM intach, pink conjunctiva, pink moist mucous membrane Respiratory/pulmonary: Bilateral cherst expansion, clear lungs bilaterally, vesicular murmurs present, no associated crackles or wheezes. Cardiovascular: Normal RRR, normal S1 and S2 Abdomen: Obese, abdomen nondistended, normal bowel sounds, no pain to palpation in any of the abdominal quadrants, no palpable masses. Extremities: Presence of bandaging covering left foot and left calf, no deformities present on the right leg, pulses of left foot are unable to be evaluated, right pulses are slightly decreased Skin: No rashes or pruritus Neurological: Intact cranial nerves with no focal neurologic deficits laboratory and microbiology Laboratory Tests 01/04/25 06:40 Test 01/04/25 06:40 Range/Units Serum Glucose 166 H 74-106 mg/dL Microbiology Date/Time Source Procedure Growth Status 01/01/25 12:50 Leg Left Gram Stain - Final Resulted 01/01/25 12:50 Leg Left Anaerobic Culture - Preliminary Resulted 01/01/25 12:50 Leg Left Aerobic Culture - Preliminary Resulted 12/30/24 19:20 Blood Blood Culture - Preliminary NO GROWTH AFTER 72 HOURS OF INCUBATION. Resulted Problem List/Assessment/Plan Problem List/Assessment/Plan Assessment and plan: Left foot and calf cellulitis with abscess Left hallux osteomyelitis? -Left foot xray: Increased tissue density on the dorsal as well as plantar surface of the distal metatarsals proximal phalanges. -Tibia/Fibula xray:Multiple radiolucent foreign bodies are noted in the mid lateral tibia and fibular soft tissues. -CT Left Lower extremity: Findings consistent with cellulitis in the left lower leg with large fluid collection along the anterolateral aspect of the left lower leg, possibly within or adjacent to the anterior compartment musculature, most consistent with abscess, containing complex fluid and numerous locules of gas. Soft tissue swelling in the great toe with wound at the plantar aspect of the 1st MTP joint, likely cellulitis. No definite evidence for osteomyelitis in the left lower leg or left foot. -Vancomycin IV daily -Cefepime 1g IV daily, discontinued -Zosyn IV daily started 01/04/2025 -Dialudid 0.25 mg IV q6 PRN -[place] 5 mg 1 tablet PO q6 PRN -I&D of left calf 01/01/2025 -I&D today PAD Type 2 Diabetes Mellitus with hyperglycemia, HbA1c 8.5% -Metformin 500 mg BID PO -Lantus 20 U -Carbohydrate consistent diet MRSA + nares -Mupirocin to each nare Hypertension -Lisinopril 20 mg PO daily -Amlodipine 5 mg PO daily -Hydralazing 10 mg IV q6 if SBP > 150 Hyperlipidemia -Atorvastatin 40 mg PO daily DVT, ruled out -Venous duplex: No left femoropopliteral venous thrombosis, contralateral common femoral vein is patent Morbid obesity, 38.5 kg/m2 -Thorough counseling on lifestyle modifications. DVT prophylaxis: Lovenox 40 mg SC GI prophylaxis: Protonix 40 mg PO Case discussed with Dr. Hinojosa. Goals of care discussed with the patient for over 20 minutes who states she understands and agrees. Plan discussed with: Patient My Orders My Orders Orders - BRETT SILVA RESIDENT Procedure Category Date Status Time Piperacillin-Tazob PHA 01/04/25 In Process 3.375gm (Zosyn 3.375g 22:00 Dietary Evaluation Review Comments: 1) CCHO 60gm + cardiac diet 2) Gasper 1 pk BID 3) Refer [facility] for diabetes education Expected Outcomes/Goals: Wound to improve Fu 3-5 days Date of Service: Jan 04, 2025 Billing Provider: OXANA HINOJOSA MD Common Visit Codes: [id number] INP/OBS CARE(HIGH) BRETT SILVA RESIDENT Jan 04, 2025 18:28 OXANA HINOJOSA MD Jan 05, 2025 21:33
--- NOTE | 2025-01-04 22:41 | DVHOP2 ---
Operative Report - 2 Report Details Date: 01/04/25 Preop Diagnosis: 1. Left hallux osteomyelitis 2. Left hallux cellulitis 3. Left leg abscess 4. Left leg necrotizing fasciitis Postop Diagnosis: same as preo Surgeon: Steff Trejo MD Anesthesiologist: See anesthesia Anesthesia: Mac Consent: The patient was informed of the risks and benefits of the procedure. These include but are not limited to complications of anesthesia, postoperative infection, incomplete relief of symptoms, recurrence of symptoms, damage to blood vessels, nerves and tendons, deep venous thrombosis, pulmonary embolism and possible need for repeat surgery in the future. Complications: None Estimated Blood Loss: 50 mL Fluids: See anesthesia Findings: Consistent with the diagnosis Indications for Surgery: Worsening left foot wound Name of Procedure Performed 1. Left foot I&D (77808) 2. Left leg I&D (13213) Procedure Details Procedure Details: PRE-PROCEDURE INFORMATION: In the pre-op holding area, the extremity to be operated on was clearly marked and the patient verified correct laterality of the marking. The patient was transferred to the OR table and placed in a supine position. A timeout was performed in which identification of the correct patient, procedure, location, and materials was done. The _ foot and leg were prepped and draped in normal sterile fashion. The foot and leg were exsanguinated and the _ tourniquet was inflated to 250 mmHg. DESCRIPTION OF PROCEDURE: Attention was directed to the left foot where previous incision was made. An incision was made over this area and was deepened through blunt dissection. The incision was deepened to the level of abscess and bone. Care was taken to the dissection to avoid any neurovascular and tendinous structures. The incision was deepened to the bone, and the absc ess appeared to be purulent fluid consistent with pus. The cortices of the bone was then removed with rongeur an all necrotic tissue. After the abscess was drained, the area was irrigated with 3 L normal saline using cysto tubing. The area was then inspected and any areas of tracking, especially along the tendons were also drained. The wound was packed with Betadine-soaked gauze and we will need to be closed at a later date. Attention was directed to the left leg where previous incision was made. An incision was made over this area and was deepened through blunt dissection. The incision was deepened to the level of abscess and bone. Care was taken to the dissection to avoid any neurovascular and tendinous structures. The incision was deepened, and the abscess appeared to be purulent fluid consistent with pus. The rongeur removed all necrotic tissue. After the abscess was drained, the area was irrigated with 3 L normal saline using cysto tubing. The area was then inspected and any areas of tracking, especially along the tendons were also drained. The wound was packed with Betadine-soaked gauze and we will need to be closed at a later date. POSTOPERATIVE INFORMATION: The patient tolerated the above noted procedure and anesthesia well and was transferred to the PACU with vital signs stable, and vascular status intact with capillary refill intact to all digits. Continue IV antibiotics. Patient will return to the floor and come back for closure and graft placement on Saturday. Condition Good Disposition Still a Patient STEFF TREJO DPM Jan 04, 2025 22:41
[2025-01-04] MEDS: PIPERACILLIN-TAZOB 3.375GM 100 ML IV SCH (23:02)
[2025-01-05] VITALS (7 sets, daily range): BP systolic 128–147; BP diastolic 77–93; PULSE 87–99; RESP 18–19; TEMP 97.9–98.7; O2SAT 94–98
[2025-01-05 07:43] LABS: Hematocrit 32.3 % (36.0-46.0); Hemoglobin 10.5 g/dL (12.2-16.2); Mean Corpuscular Hemoglobin 29.4 pg (28.0-32.0); Mean Corpuscular Volume 90.7 fL (80.0-100.0); Nucleated Red Blood Cells % 0.4 %
[2025-01-05 07:59] LABS: Anion Gap 11 (5-15); Calcium 9.7 mg/dL (8.7-10.4); Carbon Dioxide 22 mmol/L (20-31); Chloride 104 mmol/L (98-107); Potassium 4.3 mmol/L (3.5-5.1); Sodium 137 mmol/L (136-145)
[2025-01-05 08:05] LABS: BUN/Creatinine Ratio 17.0 (10.0-20.0); Blood Urea Nitrogen 16 mg/dL (9-23)
[2025-01-05 08:06] LABS: Glucose 176 mg/dL (74-106)
--- NOTE | 2025-01-05 12:53 | DVHPN2 ---
Subjective This is a 54-year-old female with past medical history of Type 2 diabetes mellitus, HTN, HLD, section brought in by EMS due to left foot pain which started around 4:30 p.m. suddenly during walking around the grocery store. The left foot pain is localized, 9/10 intensity, radiates to ferrari of the tibia, aggravated on walking or making pressure and no relieving factor. Patient went to [facility] on 12/04/2024 due to left great toe pain, swelling eventually wound debridement done and 2nd on debridement done on 12/09/2024. Patient received IV antibiotic at home with right arm PICC line and wound dressing changes by visiting nurse. As per patient, recent visit 4 days ago and fluid drainage from left tibial region. In ER, patient lying on bed and dry gauze cover with tibia and left great toe. Patient denies any history of trauma, injury, MVA or recent sick contact. Blood sugar ranges at home 120-200. Currently denies any chest pain, SOB, cough, abdominal pain, dysuria. Changes from previous H/P or p: No Changes Eyes: No Pain, No Vision change, No Conjunctivae inflammation, No Eyelid inflammation, No Other, No Redness ENT: No Ear pain, No Ear discharge, No Nose pain, No Nose discharge, No Nose congestion, No Mouth pain, No Mouth swelling, No Throat pain, No Throat swelling, No Other Cardiovascular: No Chest Pain, No Palpitations, No Orthopnea, No Paroxysmal Noc. Dyspnea, No Edema, No Lt Headedness, No Other Respiratory: No Cough, No Dry, No Shortness of breath, No SOB with excertion, No Wheezing, No Hemoptysis, No Pleuritic Pain, No Sputum, No Other Gastrointestinal: No Nausea, No Vomiting, No Abdominal Pain, No Diarrhea, No Constipation, No Melena, No Hematochezia, No Other Genitourinary: No Dysuria, No Frequency, No Incontinence, No Hematuria, No Retention, No Other Musculoskeletal: No other, No neck pain, No shoulder pain, No arm pain, No back pain, No hand pain, No leg pain, No foot pain Skin: No Rash, No Lesions, No Jaundice, No Bruising; Other (WOUND PRESENT ON EXTENSOR SURFACE OF THE TIBIA AND LEFT GREAT TOE) Objective Vitals Vital Signs Date Time Temp Pulse Resp B/P (MAP) Pulse Ox O2 Delivery O2 Flow Rate FiO2 01/05/25 09:30 98.5 90 18 147/93 (111) 98 98.5 01/05/25 07:55 Room Air* 0 21 Intake/Output Intake and Output 01/05/25 07:00 Intake Total 1350 ml Balance 1350 ml Intake Oral 925 ml IV Total 425 ml # Voids 4 # Bowel Movements 1 Exam Dermatological: Skin is dry with mild erythema and some maceration around the wound site No gross deformities noted Mild non-pitting edema present bilaterally Large dorsal hallux wound with mixed fibrotic, granular, exposed tendon, with serous drainage Left Longitudinal leg wound with surrounding erythema and swelling Vascular: Dorsalis pedis and posterior tibial pulses are 1+ bilaterally Capillary refill is under 2 seconds Skin temperature is warm bilaterally Neurologic: Protective sensation is absent on the plantar forefoot bilaterally Monofilament testing reveals decreased sensation in multiple plantar sites Musculoskeletal: Range of motion at the ankle and MTP joints is within normal limits. Strength is 5/5 in all tested muscle groups. Gait is antalgic due to offloading of the affected limb. Medications Current Medications Medications Dose Ordered Sig/Garima Route Start Time Stop Time Status Last Admin Dose Admin Pantoprazole Sodium 40 mg DAILY@0600 PO 12/31/24 06:00 01/05/25 06:25 40 MG Enoxaparin Sodium 40 mg DAILY SC 12/31/24 10:00 01/05/25 08:51 40 MG Amlodipine Besylate 5 mg DAILY PO 12/31/24 10:00 01/05/25 08:52 5 MG Lisinopril 20 mg DAILY PO 12/31/24 10:00 01/05/25 08:52 20 MG Insulin Glargine 20 units HS SC 12/31/24 22:00 01/04/25 23:25 20 UNITS Diagnostic Test (Pha) 1 strip ACHS 12/31/24 07:00 01/05/25 11:43 1 STRIP Insulin Human Regular AC SC 12/31/24 07:00 01/05/25 11:42 3 UNITS Dextrose 50 ml UD PRN IV 12/31/24 00:00 Vancomycin HCl 0 ml @ 0 mls/hr UD IV 12/31/24 00:00 Atorvastatin Calcium 40 mg HS PO 12/31/24 22:00 01/04/25 23:02 40 MG Acetaminophen/ Hydrocodone Bitart 1 tab Q6HPRN PRN PO 12/31/24 04:15 01/05/25 11:54 1 TAB Mupirocin 1 applic BID TOP 12/31/24 22:00 01/05/25 08:52 1 APPLIC Diphenhydramine HCl 25 mg Q6HP PRN PO 01/01/25 11:30 01/01/25 11:49 25 MG Hydralazine HCl 10 mg Q6HP PRN IV 01/03/25 12:00 Hydromorphone HCl 0.25 mg Q4HPRN PRN IV 01/03/25 13:00 01/05/25 08:51 0.25 MG Piperacillin Sod/ Tazobactam Sod 100 ml @ 25 mls/hr Q8HR IV 01/04/25 22:00 01/05/25 06:25 25 MLS/HR Laboratory Results Laboratory Tests 01/05/25 07:11 Chemistry Test 01/05/25 07:11 Calcium Level 9.7 mg/dL (8.7-10.4) Microbiology Microbiology Date/Time Source Procedure Growth Status 01/01/25 12:50 Leg Left Gram Stain - Final Resulted 01/01/25 12:50 Leg Left Anaerobic Culture - Preliminary Resulted 01/01/25 12:50 Leg Left Aerobic Culture - Preliminary Resulted 12/30/24 19:20 Blood Blood Culture - Final NO GROWTH AFTER 5 DAYS OF INCUBATION. Complete Assessment/Plan Assessment/Plan ASSESSMENT: Patient is a 54 year old seen on the floor follow up s/p foot I&D PLAN: - The patients chart was reviewed, clinical findings were discussed with the patient, the etiologies of the conditions were discussed in detail, and a treatment plan was agreed to at this time, with both oral and written instructions provided. - reviewed advanced imaging - reviewed all of the labs and pathology - discussed plan is to perform a closure tomorrow with graft placement - patient NPO at midnight - take him to the OR tomorrow - 6 weeks of IV abx - can weightbear as tolerated in postoperative shoe All questions were answered and concerns addressed to the patient's satisfaction. The patient was given the phone number to the clinic and was told how to make contact with the clinic should any concerns or questions arise. Patient understands that if any questions or concerns arise prior to the next appointment, we should be contacted immediately. FOLLOW-UP: Continue to follow while inpatient Plan discussed with: Patient My Orders Orders - STEFF TREJO DPM Procedure Category Date Status Time Consistent DIET 01/05/25 [facility]Diabetes Breakfast Problem List: (1) Leg wound, left (2) Cellulitis of leg, left Date of Service: Jan 05, 2025 Billing Provider: STEFF TREJO DPM Common Visit Codes: [id number] INP/OBS CARE(HIGH) STEFF TREJO DPM Jan 05, 2025 12:53
--- NOTE | 2025-01-05 13:55 | DVHPNRES ---
Progress Note Date Seen: Jan 05, 2025 Resident Creating Document: BRETT SILVA RESIDENT Has the PT tested + for MRSA If YES, has PT been informed?: Yes Medical Necessity Reason Pt with a Central, PICC or Fol: No Subjective Review of Systems Patient is a 54 year female with past medical history of type 2 diabetes mellitus, hypertension, and hyperlipidemia, who presented to the ED chief complaint of foot pain. Patient refers progressive onset of left foot and calf pain, described as throbbing, intensity 9/10, which was aggravated by movement and placing pressure on the extremity. She states her left calf was erythematous, swollen, warm to the touch, and very painful. She states that in November she will to her left foot swollen and blistering, for which she sought care at [facility] on 12/04/2024 where she was hospitalized and to incision and debridement procedures for performed and she was sent home on IV antibiotics with a PICC line. She states she was complaint with treatment as home health was coming for antibiotic administration and dressing changes. On evaluation in the ED, initial labs sheow WBC 5.1, Hb 11.2, sodium 139, potassium 4.1, creatinine 0.88, lactic acid 1.3, and serum glucose 254. Chest xray showed no acute cardiopulmonary disease. Foot xray showed increased tissue density on the dorsal and plantar surface of the distal metatarsals proximal phalanges., with subsequent imaging showing radiolucent foreign bodies in the mid lateral tibia and fibular soft tissues. She was admitted for further work up and initiation of antibiotic treatment. She was taken to I&D yesterday by Dr. Leung, IV antibiotics were subsequently shifted. Patient seen at bedside. Patient states she feels well, states she was in pain yesterday after her procedure but it was managed. States she was able to sleep, is tolerating oral diet, and has been able ambulate, however feels some pain in the operative region. Dr. Leung recommended use of post operative shoe, which was provided. She currently denies any fever, chills, pain in other extremities, nausea, vomiting, shortness of breath, palpitations, or other symptoms. Vitals have remained stable. Follow up labs within normal limits. Wound cultures from previous procedures continue to be negative. She is scheduled for graft procedure tomorrow with Dr. Leung. She will continue on the current antibiotic regimen. Upon discharge she will be sent home on IV antibiotics, social service consult has been placed to arrange this. We will continue to monitor. Objective vital signs Vital Sign Date Time Temp Pulse Resp B/P (MAP) Pulse Ox O2 Delivery O2 Flow Rate FiO2 01/05/25 13:18 98.3 99 18 129/83 (98) 97 98.3 01/05/25 07:55 Room Air* 0 21 Total Intake and Output 01/04/25 01/04/25 01/05/25 15:00 23:00 07:00 Intake Total 125 ml 200 ml 1025 ml Balance 125 ml 200 ml 1025 ml medications Current Medications Medications Dose Ordered Sig/Garima Route Start Time Stop Time Status Last Admin Dose Admin Pantoprazole Sodium 40 mg DAILY@0600 PO 12/31/24 06:00 01/05/25 06:25 40 MG Enoxaparin Sodium 40 mg DAILY SC 12/31/24 10:00 01/05/25 08:51 40 MG Amlodipine Besylate 5 mg DAILY PO 12/31/24 10:00 01/05/25 08:52 5 MG Lisinopril 20 mg DAILY PO 12/31/24 10:00 01/05/25 08:52 20 MG Insulin Glargine 20 units HS SC 12/31/24 22:00 01/04/25 23:25 20 UNITS Diagnostic Test (Pha) 1 strip ACHS 12/31/24 07:00 01/05/25 11:43 1 STRIP Insulin Human Regular AC SC 12/31/24 07:00 01/05/25 11:42 3 UNITS Dextrose 50 ml UD PRN IV 12/31/24 00:00 Vancomycin HCl 0 ml @ 0 mls/hr UD IV 12/31/24 00:00 Atorvastatin Calcium 40 mg HS PO 12/31/24 22:00 01/04/25 23:02 40 MG Acetaminophen/ Hydrocodone Bitart 1 tab Q6HPRN PRN PO 12/31/24 04:15 01/05/25 11:54 1 TAB Mupirocin 1 applic BID TOP 12/31/24 22:00 01/05/25 08:52 1 APPLIC Diphenhydramine HCl 25 mg Q6HP PRN PO 01/01/25 11:30 01/01/25 11:49 25 MG Hydralazine HCl 10 mg Q6HP PRN IV 01/03/25 12:00 Hydromorphone HCl 0.25 mg Q4HPRN PRN IV 01/03/25 13:00 01/05/25 08:51 0.25 MG Piperacillin Sod/ Tazobactam Sod 100 ml @ 25 mls/hr Q8HR IV 01/04/25 22:00 01/05/25 13:20 25 MLS/HR Examination General: Patient is comfortable, alert and oriented in person place and time. Patient following commands HEENT: Normocephalic, atraumatic, EOM intach, pink conjunctiva, pink moist mucous membrane Respiratory/pulmonary: Bilateral cherst expansion, clear lungs bilaterally, vesicular murmurs present, no associated crackles or wheezes. Cardiovascular: Normal RRR, normal S1 and S2 Abdomen: Obese, abdomen nondistended, normal bowel sounds, no pain to palpation in any of the abdominal quadrants, no palpable masses. Extremities: Presence of bandaging covering left foot and left calf, no deformities present on the right leg, pulses of left foot are unable to be evaluated, right pulses are slightly decreased Skin: No rashes or pruritus Neurological: Intact cranial nerves with no focal neurologic deficits laboratory and microbiology Laboratory Tests 01/05/25 07:11 Test 01/05/25 07:11 Range/Units Serum Glucose 176 H 74-106 mg/dL Microbiology Date/Time Source Procedure Growth Status 01/01/25 12:50 Leg Left Gram Stain - Final Resulted 01/01/25 12:50 Leg Left Anaerobic Culture - Preliminary Resulted 01/01/25 12:50 Leg Left Aerobic Culture - Preliminary Resulted 12/30/24 19:20 Blood Blood Culture - Final NO GROWTH AFTER 5 DAYS OF INCUBATION. Complete Problem List/Assessment/Plan Problem List/Assessment/Plan Assessment and plan: Left foot and calf cellulitis with abscess Left hallux osteomyelitis? -Left foot xray: Increased tissue density on the dorsal as well as plantar surface of the distal metatarsals proximal phalanges. -Tibia/Fibula xray:Multiple radiolucent foreign bodies are noted in the mid lateral tibia and fibular soft tissues. -CT Left Lower extremity: Findings consistent with cellulitis in the left lower leg with large fluid collection along the anterolateral aspect of the left lower leg, possibly within or adjacent to the anterior compartment musculature, most consistent with abscess, containing complex fluid and numerous locules of gas. Soft tissue swelling in the great toe with wound at the plantar aspect of the 1st MTP joint, likely cellulitis. No definite evidence for osteomyelitis in the left lower leg or left foot. -Vancomycin IV daily -Cefepime 1g IV daily, discontinued -Zosyn IV daily started 01/04/2025 -Dialudid 0.25 mg IV q6 PRN -[place] 5 mg 1 tablet PO q6 PRN -I&D of left calf 01/01/2025 -I&D of left foot and calf 01/04/2025. -Graft procedure tomorrow. PAD Type 2 Diabetes Mellitus with hyperglycemia, HbA1c 8.5% -Metformin 500 mg BID PO -Lantus 20 U -Carbohydrate consistent diet MRSA + nares -Mupirocin to each nare Hypertension -Lisinopril 20 mg PO daily -Amlodipine 5 mg PO daily -Hydralazing 10 mg IV q6 if SBP > 150 Hyperlipidemia -Atorvastatin 40 mg PO daily DVT, ruled out -Venous duplex: No left femoropopliteral venous thrombosis, contralateral common femoral vein is patent Morbid obesity, 38.5 kg/m2 -Thorough counseling on lifestyle modifications. Consult with secondary social studies teacher placed for home IV antibiotics. DVT prophylaxis: Lovenox 40 mg SC GI prophylaxis: Protonix 40 mg PO Case discussed with Dr. Hinojosa. Goals of care discussed with the patient for over 20 minutes who states she understands and agrees. Plan discussed with: Patient Dietary Evaluation Review Comments: 1) CCHO 60gm + cardiac diet 2) Gasper 1 pk BID 3) Refer [employer] for diabetes education Expected Outcomes/Goals: Wound to improve Fu 3-5 days Date of Service: Jan 05, 2025 Billing Provider: OXANA HINOJOSA MD Common Visit Codes: [id number] INP/OBS CARE(HIGH) BRETT SILVA RESIDENT Jan 05, 2025 13:54 OXANA HINOJOSA MD Jan 05, 2025 21:34
[2025-01-05] MEDS: VANCOMYCIN 1GM/200ML PM 200 ML IV SCH (17:11)
[2025-01-06] VITALS (9 sets, daily range): BP systolic 131–162; BP diastolic 82–98; PULSE 78–100; RESP 12–18; TEMP 97–98.9; O2SAT 96–98
[2025-01-06] MEDS: BUPIVACAINE 0.5% MPF INJ 30ML SDV IJ ONE ×2 (09:26→10:19)
[2025-01-06] MEDS ORDERED: PROPOFOL 10 MG/ML 20 ML IV ONE ×2 (09:39→10:16)
[2025-01-06] MEDS ORDERED: ONDANSETRON HCL 4 MG/2 ML VIAL ONE (09:40)
[2025-01-06] MEDS ORDERED: KETAMINE 50mg/ML 1ml syringe ONE (09:40)
[2025-01-06] MEDS ORDERED: LIDOCAINE 1% INJ PF 5ML AMP ONE (09:40)
[2025-01-06] MEDS ORDERED: KETOROLAC TROMETH 30 MG/ML 1ML VIAL ONE (09:40)
[2025-01-06] MEDS ORDERED: GLYCOPYRROLATE 0.2 MG/ML 1ML VIAL ONE (09:41)
[2025-01-06] MEDS: CELECOXIB 100 MG CAP ONE (09:45)
[2025-01-06] MEDS: GABAPENTIN 300 MG CAP ONE (09:45)
[2025-01-06] MEDS: ACETAMINOPHEN IV 100 ML IV ONE (09:46)
[2025-01-06] MEDS: CELECOXIB 100 MG CAP PO ONE (09:49)
[2025-01-06] MEDS: ACETAMINOPHEN IV 1000 MG/100ML (10MG/ML) IV ONE (09:49)
[2025-01-06] MEDS: GABAPENTIN 300 MG CAP PO ONE (09:50)
[2025-01-06] MEDS: VANCOMYCIN HCL 1000 MG VL ONE (10:04)
--- NOTE | 2025-01-06 10:05 | DVHPN2 ---
Subjective This is a 54-year-old female with past medical history of Type 2 diabetes mellitus, HTN, HLD, section brought in by EMS due to left foot pain which started around 4:30 p.m. suddenly during walking around the grocery store. The left foot pain is localized, 9/10 intensity, radiates to ferrari of the tibia, aggravated on walking or making pressure and no relieving factor. Patient went to [facility] on 12/04/2024 due to left great toe pain, swelling eventually wound debridement done and 2nd on debridement done on 12/09/2024. Patient received IV antibiotic at home with right arm PICC line and wound dressing changes by visiting nurse. As per patient, recent visit 4 days ago and fluid drainage from left tibial region. In ER, patient lying on bed and dry gauze cover with tibia and left great toe. Patient denies any history of trauma, injury, MVA or recent sick contact. Blood sugar ranges at home 120-200. Currently denies any chest pain, SOB, cough, abdominal pain, dysuria. Changes from previous H/P or p: No Changes Eyes: No Pain, No Vision change, No Conjunctivae inflammation, No Eyelid inflammation, No Other, No Redness ENT: No Ear pain, No Ear discharge, No Nose pain, No Nose discharge, No Nose congestion, No Mouth pain, No Mouth swelling, No Throat pain, No Throat swelling, No Other Cardiovascular: No Chest Pain, No Palpitations, No Orthopnea, No Paroxysmal Noc. Dyspnea, No Edema, No Lt Headedness, No Other Respiratory: No Cough, No Dry, No Shortness of breath, No SOB with excertion, No Wheezing, No Hemoptysis, No Pleuritic Pain, No Sputum, No Other Gastrointestinal: No Nausea, No Vomiting, No Abdominal Pain, No Diarrhea, No Constipation, No Melena, No Hematochezia, No Other Genitourinary: No Dysuria, No Frequency, No Incontinence, No Hematuria, No Retention, No Other Musculoskeletal: No other, No neck pain, No shoulder pain, No arm pain, No back pain, No hand pain, No leg pain, No foot pain Skin: No Rash, No Lesions, No Jaundice, No Bruising; Other (WOUND PRESENT ON EXTENSOR SURFACE OF THE TIBIA AND LEFT GREAT TOE) Objective Vitals Vital Signs Date Time Temp Pulse Resp B/P (MAP) Pulse Ox O2 Delivery O2 Flow Rate FiO2 01/06/25 08:00 18 97 Room Air* 0 21 01/06/25 06:53 82 146/82 01/06/25 05:00 98.9 98.9 Intake/Output Intake and Output 01/06/25 07:00 Intake Total 1950 ml Balance 1950 ml Intake Oral 1350 ml IV Total 600 ml # Voids 6 # Bowel Movements 2 Exam Dermatological: Skin is dry with mild erythema and some maceration around the wound site No gross deformities noted Mild non-pitting edema present bilaterally Large dorsal hallux wound with mixed fibrotic, granular, exposed tendon, with serous drainage Left Longitudinal leg wound with surrounding erythema and swelling Vascular: Dorsalis pedis and posterior tibial pulses are 1+ bilaterally Capillary refill is under 2 seconds Skin temperature is warm bilaterally Neurologic: Protective sensation is absent on the plantar forefoot bilaterally Monofilament testing reveals decreased sensation in multiple plantar sites Musculoskeletal: Range of motion at the ankle and MTP joints is within normal limits. Strength is 5/5 in all tested muscle groups. Gait is antalgic due to offloading of the affected limb. Medications Current Medications Medications Dose Ordered Sig/Garima Route Start Time Stop Time Status Last Admin Dose Admin Pantoprazole Sodium 40 mg DAILY@0600 PO 12/31/24 06:00 01/06/25 05:37 40 MG Enoxaparin Sodium 40 mg DAILY SC 12/31/24 10:00 01/05/25 08:51 40 MG Amlodipine Besylate 5 mg DAILY PO 12/31/24 10:00 01/05/25 08:52 5 MG Lisinopril 20 mg DAILY PO 12/31/24 10:00 01/05/25 08:52 20 MG Insulin Glargine 20 units HS SC 12/31/24 22:00 01/05/25 22:46 20 UNITS Diagnostic Test (Pha) 1 strip ACHS 12/31/24 07:00 01/06/25 05:43 1 STRIP Insulin Human Regular AC SC 12/31/24 07:00 01/06/25 06:25 3 UNITS Dextrose 50 ml UD PRN IV 12/31/24 00:00 Vancomycin HCl 0 ml @ 0 mls/hr UD IV 12/31/24 00:00 Atorvastatin Calcium 40 mg HS PO 12/31/24 22:00 01/05/25 20:51 40 MG Acetaminophen/ Hydrocodone Bitart 1 tab Q6HPRN PRN PO 12/31/24 04:15 01/05/25 11:54 1 TAB Mupirocin 1 applic BID TOP 12/31/24 22:00 01/05/25 20:54 1 APPLIC Diphenhydramine HCl 25 mg Q6HP PRN PO 01/01/25 11:30 01/01/25 11:49 25 MG Hydralazine HCl 10 mg Q6HP PRN IV 01/03/25 12:00 Hydromorphone HCl 0.25 mg Q4HPRN PRN IV 01/03/25 13:00 01/06/25 06:23 0.25 MG Piperacillin Sod/ Tazobactam Sod 100 ml @ 25 mls/hr Q8HR IV 01/04/25 22:00 01/06/25 05:37 25 MLS/HR Vancomycin HCl 200 ml @ 200 mls/hr Q12H IV 01/05/25 17:00 01/06/25 05:37 200 MLS/HR Laboratory Results Laboratory Tests 01/05/25 07:11 01/06/25 07:25 Microbiology Microbiology Date/Time Source Procedure Growth Status 01/01/25 12:50 Leg Left Gram Stain - Final Resulted 01/01/25 12:50 Leg Left Anaerobic Culture - Preliminary Resulted 01/01/25 12:50 Leg Left Aerobic Culture - Preliminary Resulted 12/30/24 19:20 Blood Blood Culture - Final NO GROWTH AFTER 5 DAYS OF INCUBATION. Complete Assessment/Plan Assessment/Plan ASSESSMENT: Patient is a 54 year old seen on the floor follow up s/p foot I&D PLAN: - The patients chart was reviewed, clinical findings were discussed with the patient, the etiologies of the conditions were discussed in detail, and a treatment plan was agreed to at this time, with both oral and written instructions provided. - reviewed advanced imaging - reviewed all of the labs and pathology - discussed plan is to perform a closure tomorrow with graft placement - patient has been NPO since midnight - take her to the OR today - 6 weeks of IV abx - can weightbear as tolerated in postoperative shoe All questions were answered and concerns addressed to the patient's satisfaction. The patient was given the phone number to the clinic and was told how to make contact with the clinic should any concerns or questions arise. Patient understands that if any questions or concerns arise prior to the next appointment, we should be contacted immediately. FOLLOW-UP: Continue to follow while inpatient Plan discussed with: Patient My Orders Orders - STEFF TREJO DPM Procedure Category Date Status Time Npo (Nothing By DIET 01/06/25 Transmitted Mouth) Diet Breakfast Obtain Consent For: ORDERS 01/05/25 Transmitted 12:56 Problem List: (1) Leg wound, left (2) Cellulitis of leg, left Date of Service: Jan 06, 2025 Billing Provider: STEFF TREJO DPM Common Visit Codes: [id number] INP/OBS CARE(HIGH) STEFF TREJO DPM Jan 06, 2025 10:04
[2025-01-06 10:06] LABS: Hematocrit 29.8 % (36.0-46.0); Hemoglobin 9.9 g/dL (12.2-16.2); Mean Corpuscular Hemoglobin 29.2 pg (28.0-32.0); Mean Corpuscular Volume 87.6 fL (80.0-100.0); Nucleated Red Blood Cells % 0.2 %
[2025-01-06] MEDS ORDERED: NALOXONE HCL 0.4 MG/ML VIAL IV PRN (10:45)
[2025-01-06] MEDS ORDERED: FLUMAZENIL 0.1 MG/ML INJ 10ML MDV IV PRN (10:45)
[2025-01-06] MEDS ORDERED: ONDANSETRON HCL 4 MG/2 ML VIAL IV PRN ×2 (10:45→14:00)
[2025-01-06] MEDS ORDERED: fentaNYL CITRATE 100 MCG/2 ML VL IV PRN (10:45)
--- NOTE | 2025-01-06 10:56 | DVHOP2 ---
Operative Report - 2 Report Details Date: 01/06/25 Preop Diagnosis: 1. Left hallux osteomyelitis 2. Left hallux cellulitis 3. Left leg abscess 4. Left leg necrotizing fasciitis Postop Diagnosis: same as preo Surgeon: Steff Trejo MD Anesthesiologist: See anesthesia Anesthesia: Mac Implant: Integra bilayer 5 x 5 cm Consent: The patient was informed of the risks and benefits of the procedure. These include but are not limited to complications of anesthesia, postoperative infection, incomplete relief of symptoms, recurrence of symptoms, damage to blood vessels, nerves and tendons, deep venous thrombosis, pulmonary embolism and possible need for repeat surgery in the future. Complications: None Estimated Blood Loss: 50 mL Fluids: See anesthesia Findings: Consistent with the diagnosis Indications for Surgery: Worsening foot wound Name of Procedure Performed 1. Left foot I&D (52253) 2. Left leg I&D (22663) 3. Left foot placement of graft (33505) 4. Left leg delayed closure (47327) 5. Left foot rotational flap for closure (91911) Procedure Details Procedure Details: PRE-PROCEDURE INFORMATION: In the pre-op holding area, the extremity to be opera mary on was clearly marked and the patient verified correct laterality of the marking. The patient was transferred to the OR table and placed in a supine position. A timeout was performed in which identification of the correct patient, procedure, location, and materials was done. The _ foot and leg were prepped and draped in normal sterile fashion. The foot and leg were exsanguinate d and the _ tourniquet was inflated to 250 mmHg. DESCRIPTION OF PROCEDURE: Attention was directed to the left foot where previ ous incision was made. An incision was made over this area and was deepened through blunt dissection. The incision was deepened to the level of abscess and bone. Care was taken to the dissection to avoid any neurovascular and tendinous structures. The incision was deepened to the bone, and the abscess appeared to be purulent fluid consistent with pus. The cortices of the bone was then removed with rongeur an all necrotic tissue. After the abscess was drained, the area was irrigated with 3 L normal saline using cysto tubing. The area was then inspected and any areas of tracking, especially along the tendons were also drained. Due to the soft tissue deficit, rotational advancement flap was designed medially to laterally and elevated preserving vascularity. after the flap was performed, a 5 x 5 cm Integra graft was then placed over the hallux. a Xeroform dressing was placed over the graft. Attention was directed to the left leg where previous incision was made. An incision was made over this area and was deepened through blunt dissection. The incision was deepened to the level of abscess and bone. Care was taken to the dissection to avoid any neurovascular and tendinous structures. The incision was deepened, and the abscess appeared to be purulent fluid consistent with pus. The rongeur removed all necrotic tissue. After the abscess was drained, the area was irrigated with 3 L normal saline using cysto tubing. The area was then inspected and any areas of tracking, especially along the tendons were also drained. A delayed closure was then performed using 2-0 nylon after was deemed appropriate with no longer concern for infection. POSTOPERATIVE INFORMATION: The patient tolerated the above noted procedure and anesthesia well and was transferred to the PACU with vital signs stable, and vascular status intact with capillary refill intact to all digits. Recommend 6 weeks of IV antibiotics. Patient can weightbear as tolerated in a postoperative shoe. Leave the dressings intact until her postop visit next week. if the dressings gets soiled, Xeroform, gauze, Kerlix, Sameer over the incision and graft. Follow up with me in 1 week Condition Good Disposition Still a Patient STEFF TREJO DPM Jan 06, 2025 10:56
[2025-01-06] MEDS: HYDROmorphone HCL 2 MG/ML VL/or syr IV PRN (11:02)
[2025-01-06] MEDS: hydrALAZINE HCL 20 MG/ML VL IV PRN (11:43)
--- NOTE | 2025-01-06 13:36 | DVHPNRES ---
Progress Note Date Seen: Jan 06, 2025 Resident Creating Document: BRETT SILVA RESIDENT Has the PT tested + for MRSA If YES, has PT been informed?: Yes Medical Necessity Reason Pt with a Central, PICC or Fol: No Subjective Review of Systems Patient is a 54 year female with past medical history of type 2 diabetes mellitus, hypertension, and hyperlipidemia, who presented to the ED chief complaint of foot pain. Patient refers progressive onset of left foot and calf pain, described as throbbing, intensity 9/10, which was aggravated by movement and placing pressure on the extremity. She states her left calf was erythematous, swollen, warm to the touch, and very painful. She states that in November she will to her left foot swollen and blistering, for which she sought care at [facility] on 12/04/2024 where she was hospitalized and to incision and debridement procedures for performed and she was sent home on IV antibiotics with a PICC line. She states she was complaint with treatment as home health was coming for antibiotic administration and dressing changes. On evaluation in the ED, initial labs sheow WBC 5.1, Hb 11.2, sodium 139, potassium 4.1, creatinine 0.88, lactic acid 1.3, and serum glucose 254. Chest xray showed no acute cardiopulmonary disease. Foot xray showed increased tissue density on the dorsal and plantar surface of the distal metatarsals proximal phalanges., with subsequent imaging showing radiolucent foreign bodies in the mid lateral tibia and fibular soft tissues. She was admitted for further work up and initiation of antibiotic treatment. She was taken to I&D 01/04/[address] Leung, IV antibiotics were subsequently shifted. Patient seen at bedside. Patient states she feels better, states pain has improved, she was able to sleep, is tolerating oral diet, and has been able ambulate. She currently denies any fever, chills, pain in other extremities, nausea, vomiting, shortness of breath, palpitations, or other symptoms. Vitals have remained stable. Follow up labs within normal limits. Final wound cultures are negative. Blood cultures are negative. She underwent grafting procedure today. She will continue on the current antibiotic regimen. Possible discharge tomorrow. Objective vital signs Vital Sign Date Time Temp Pulse Resp B/P (MAP) Pulse Ox O2 Delivery O2 Flow Rate FiO2 01/06/25 11:59 75 12 149/95 (113) 99 01/06/25 10:39 Mask 6.0 01/06/25 10:39 97.1 97.1 01/06/25 08:00 21 Total Intake and Output 01/05/25 01/05/25 01/06/25 15:00 23:00 07:00 Intake Total 300 ml 1200 ml 450 ml Balance 300 ml 1200 ml 450 ml medications Current Medications Medications Dose Ordered Sig/Garima Route Start Time Stop Time Status Last Admin Dose Admin Pantoprazole Sodium 40 mg DAILY@0600 PO 12/31/24 06:00 01/06/25 05:37 40 MG Enoxaparin Sodium 40 mg DAILY SC 12/31/24 10:00 01/05/25 08:51 40 MG Amlodipine Besylate 5 mg DAILY PO 12/31/24 10:00 01/05/25 08:52 5 MG Lisinopril 20 mg DAILY PO 12/31/24 10:00 01/05/25 08:52 20 MG Insulin Glargine 20 units HS SC 12/31/24 22:00 01/05/25 22:46 20 UNITS Diagnostic Test (Pha) 1 strip ACHS 12/31/24 07:00 01/06/25 05:43 1 STRIP Insulin Human Regular AC SC 12/31/24 07:00 01/06/25 06:25 3 UNITS Dextrose 50 ml UD PRN IV 12/31/24 00:00 Vancomycin HCl 0 ml @ 0 mls/hr UD IV 12/31/24 00:00 Atorvastatin Calcium 40 mg HS PO 12/31/24 22:00 01/05/25 20:51 40 MG Acetaminophen/ Hydrocodone Bitart 1 tab Q6HPRN PRN PO 12/31/24 04:15 01/05/25 11:54 1 TAB Mupirocin 1 applic BID TOP 12/31/24 22:00 01/05/25 20:54 1 APPLIC Diphenhydramine HCl 25 mg Q6HP PRN PO 01/01/25 11:30 01/01/25 11:49 25 MG Hydralazine HCl 10 mg Q6HP PRN IV 01/03/25 12:00 Hydromorphone HCl 0.25 mg Q4HPRN PRN IV 01/03/25 13:00 01/06/25 06:23 0.25 MG Piperacillin Sod/ Tazobactam Sod 100 ml @ 25 mls/hr Q8HR IV 01/04/25 22:00 01/06/25 05:37 25 MLS/HR Vancomycin HCl 200 ml @ 200 mls/hr Q12H IV 01/05/25 17:00 01/06/25 05:37 200 MLS/HR Oxycodone HCl 10 mg ONCE PRN PO 01/06/25 10:45 01/06/25 11:00 10 MG Examination General: Patient is comfortable, alert and oriented in person place and time. Patient following commands HEENT: Normocephalic, atraumatic, EOM intach, pink conjunctiva, pink moist mucous membrane Respiratory/pulmonary: Bilateral cherst expansion, clear lungs bilaterally, vesicular murmurs present, no associated crackles or wheezes. Cardiovascular: Normal RRR, normal S1 and S2 Abdomen: Obese, abdomen nondistended, normal bowel sounds, no pain to palpation in any of the abdominal quadrants, no palpable masses. Extremities: Presence of PICC line in right inner forearm, presence of bandaging covering left foot and left calf, no deformities present on the right leg, pulses of left foot are unable to be evaluated, right pulses are slightly decreased Skin: No rashes or pruritus Neurological: Intact cranial nerves with no focal neurologic deficits laboratory and microbiology Laboratory Tests 01/06/25 07:25 01/05/25 07:11 Test 01/05/25 07:11 Range/Units Serum Glucose 176 H 74-106 mg/dL Microbiology Date/Time Source Procedure Growth Status 01/01/25 12:50 Leg Left Gram Stain - Final Resulted 01/01/25 12:50 Leg Left Anaerobic Culture - Preliminary Resulted 01/01/25 12:50 Leg Left Aerobic Culture - Final Resulted 12/30/24 19:20 Blood Blood Culture - Final NO GROWTH AFTER 5 DAYS OF INCUBATION. Complete Problem List/Assessment/Plan Problem List/Assessment/Plan Assessment and Plan: Left foot and calf cellulitis with abscess Left hallux osteomyelitis? Left leg abscess Left leg necrotizing fasciitis -Left foot xray: Increased tissue density on the dorsal as well as plantar surface of the distal metatarsals proximal phalanges. -Tibia/Fibula xray:Multiple radiolucent foreign bodies are noted in the mid lateral tibia and fibular soft tissues. -CT Left Lower extremity: Findings consistent with cellulitis in the left lower leg with large fluid collection along the anterolateral aspect of the left lower leg, possibly within or adjacent to the anterior compartment musculature, most consistent with abscess, containing complex fluid and numerous locules of gas. Soft tissue swelling in the great toe with wound at the plantar aspect of the 1st MTP joint, likely cellulitis. No definite evidence for osteomyelitis in the left lower leg or left foot. -Vancomycin IV 1g q 12 hours -Cefepime 1g IV daily, discontinued -Zosyn IV daily started 01/04/2025 -Dialudid 0.25 mg IV q6 PRN -[place] 5 mg 1 tablet PO q6 PRN -I&D of left calf 01/01/2025 -I&D of left foot and calf 01/04/2025. -Graft procedure today. PAD Type 2 Diabetes Mellitus with hyperglycemia, HbA1c 8.5% -Metformin 500 mg BID PO -Lantus 20 U -Carbohydrate consistent diet MRSA + nares -Mupirocin to each nare Hypertension -Lisinopril 20 mg PO daily -Amlodipine 5 mg PO daily -Hydralazing 10 mg IV q6 if SBP > 150 Hyperlipidemia -Atorvastatin 40 mg PO daily DVT, ruled out -Venous duplex: No left femoropopliteral venous thrombosis, contralateral common femoral vein is patent Morbid obesity, 38.5 kg/m2 -Thorough counseling on lifestyle modifications. Consult with health social work professor placed for home IV antibiotics. DVT prophylaxis: Lovenox 40 mg SC GI prophylaxis: Protonix 40 mg PO Case discussed with Dr. Hinojosa. Goals of care discussed with the patient for over 20 minutes who states she understands and agrees. Plan discussed with: Patient My Orders My Orders Orders - BRETT SILVA RESIDENT Procedure Category Date Status Time * Landscape Management Technician CONS 01/06/25 Transmitted Consult 13:31 Dietary Evaluation Review Comments: 1) CCHO 60gm + cardiac diet 2) [place] 1 pk BID 3) Refer Commercial Stripper for diabetes education Expected Outcomes/Goals: Wound to improve Fu 3-5 days Date of Service: Jan 06, 2025 Billing Provider: OXANA HINOJOSA MD Common Visit Codes: [id number] INP/OBS CARE(HIGH) BRETT SILVA RESIDENT Jan 06, 2025 13:36 OXANA HINOJOSA MD Jan 06, 2025 19:29
[2025-01-06] MEDS: ONDANSETRON HCL 4 MG/2 ML VIAL IV ONE (13:56)
[2025-01-06 14:08] LABS: Chloride 105 mmol/L (98-107); Potassium 4.3 mmol/L (3.5-5.1); Sodium 137 mmol/L (136-145)
[2025-01-06 14:09] LABS: Anion Gap 9 (5-15); Carbon Dioxide 23 mmol/L (20-31)
[2025-01-06 14:10] LABS: Calcium 9.7 mg/dL (8.7-10.4)
[2025-01-06 14:15] LABS: BUN/Creatinine Ratio 17.8 (10.0-20.0); Blood Urea Nitrogen 16 mg/dL (9-23); Glucose 198 mg/dL (74-106)
[2025-01-07] VITALS (7 sets, daily range): BP systolic 135–157; BP diastolic 78–90; PULSE 66–104; RESP 17–20; TEMP 97.4–98; O2SAT 97–99
[2025-01-07 06:37] LABS: Hematocrit 29.4 % (36.0-46.0); Hemoglobin 10.0 g/dL (12.2-16.2); Mean Corpuscular Hemoglobin 29.8 pg (28.0-32.0); Mean Corpuscular Volume 87.4 fL (80.0-100.0); Nucleated Red Blood Cells % 0.1 %
[2025-01-07 06:49] LABS: Anion Gap 8 (5-15); Carbon Dioxide 25 mmol/L (20-31); Chloride 103 mmol/L (98-107); Potassium 4.2 mmol/L (3.5-5.1)
[2025-01-07 06:50] LABS: Calcium 9.8 mg/dL (8.7-10.4)
[2025-01-07 06:53] LABS: Sodium 136 mmol/L (136-145)
[2025-01-07 06:55] LABS: BUN/Creatinine Ratio 17.8 (10.0-20.0); Blood Urea Nitrogen 18 mg/dL (9-23); Glucose 277 mg/dL (74-106)
[2025-01-07] MEDS: hydrALAZINE HCL 20 MG/ML VL IV PRN (16:45)
--- NOTE | 2025-01-07 19:51 | DVHPNRES ---
Progress Note Date Seen: Jan 07, 2025 Resident Creating Document: BRETT SILVA RESIDENT Has the PT tested + for MRSA If YES, has PT been informed?: Yes Medical Necessity Reason Pt with a Central, PICC or Fol: No Subjective Review of Systems Patient is a 54 year female with past medical history of type 2 diabetes mellitus, hypertension, and hyperlipidemia, who presented to the ED chief complaint of foot pain. Patient refers progressive onset of left foot and calf pain, described as throbbing, intensity 9/10, which was aggravated by movement and placing pressure on the extremity. She states her left calf was erythematous, swollen, warm to the touch, and very painful. She states that in November she will to her left foot swollen and blistering, for which she sought care at [facility] on 12/04/2024 where she was hospitalized and to incision and debridement procedures for performed and she was sent home on IV antibiotics with a PICC line. She states she was complaint with treatment as home health was coming for antibiotic administration and dressing changes. On evaluation in the ED, initial labs sheow WBC 5.1, Hb 11.2, sodium 139, potassium 4.1, creatinine 0.88, lactic acid 1.3, and serum glucose 254. Chest xray showed no acute cardiopulmonary disease. Foot xray showed increased tissue density on the dorsal and plantar surface of the distal metatarsals proximal phalanges., with subsequent imaging showing radiolucent foreign bodies in the mid lateral tibia and fibular soft tissues. She was admitted for further work up and initiation of antibiotic treatment. She was taken to I&D 01/04/2025 and graft procedures on 01/06/[address] Leung. Patient seen at bedside. Patient states she feels better, states she was in intense pain yesterday after her procedure, however it has now improved immensely. She has been able to tolerate oral diet, ambulate to the restroom with limited pain. She denies fever, chills, nausea, vomiting and other symptoms. No adverse events over nights. Vitals and labs are within normal range. Pending approval of home health IV antibiotics for discharge. Objective vital signs Vital Sign Date Time Temp Pulse Resp B/P (MAP) Pulse Ox O2 Delivery O2 Flow Rate FiO2 01/07/25 17:00 98.0 93 18 152/87 (108) 98 98.0 01/07/25 08:00 Room Air* 0 21 Total Intake and Output 01/06/25 01/06/25 01/07/25 15:00 23:00 07:00 Intake Total 200 ml 400 ml 460 ml Balance 200 ml 400 ml 460 ml medications Current Medications Medications Dose Ordered Sig/Garima Route Start Time Stop Time Status Last Admin Dose Admin Pantoprazole Sodium 40 mg DAILY@0600 PO 12/31/24 06:00 01/07/25 05:58 40 MG Enoxaparin Sodium 40 mg DAILY SC 12/31/24 10:00 01/07/25 09:37 40 MG Amlodipine Besylate 5 mg DAILY PO 12/31/24 10:00 01/07/25 09:36 5 MG Lisinopril 20 mg DAILY PO 12/31/24 10:00 01/07/25 09:37 20 MG Insulin Glargine 20 units HS SC 12/31/24 22:00 01/06/25 21:45 20 UNITS Diagnostic Test (Pha) 1 strip ACHS 12/31/24 07:00 01/07/25 17:12 1 STRIP Insulin Human Regular AC SC 12/31/24 07:00 01/07/25 17:18 3 UNITS Dextrose 50 ml UD PRN IV 12/31/24 00:00 Vancomycin HCl 0 ml @ 0 mls/hr UD IV 12/31/24 00:00 Atorvastatin Calcium 40 mg HS PO 12/31/24 22:00 01/06/25 21:19 40 MG Acetaminophen/ Hydrocodone Bitart 1 tab Q6HPRN PRN PO 12/31/24 04:15 01/07/25 11:26 1 TAB Mupirocin 1 applic BID TOP 12/31/24 22:00 01/07/25 09:38 1 APPLIC Diphenhydramine HCl 25 mg Q6HP PRN PO 01/01/25 11:30 01/01/25 11:49 25 MG Hydralazine HCl 10 mg Q6HP PRN IV 01/03/25 12:00 01/07/25 16:45 10 MG Hydromorphone HCl 0.25 mg Q4HPRN PRN IV 01/03/25 13:00 01/07/25 16:08 0.25 MG Piperacillin Sod/ Tazobactam Sod 100 ml @ 25 mls/hr Q8HR IV 01/04/25 22:00 01/07/25 13:37 25 MLS/HR Vancomycin HCl 200 ml @ 200 mls/hr Q12H IV 01/05/25 17:00 01/07/25 18:43 200 MLS/HR Oxycodone HCl 10 mg ONCE PRN PO 01/06/25 10:45 01/06/25 11:00 10 MG Ondansetron HCl 4 mg Q4HPRN PRN IV 01/06/25 14:00 Examination General: Patient is comfortable, alert and oriented in person place and time. Patient following commands HEENT: Normocephalic, atraumatic, EOM intach, pink conjunctiva, pink moist mucous membrane Respiratory/pulmonary: Bilateral cherst expansion, clear lungs bilaterally, vesicular murmurs present, no associated crackles or wheezes. Cardiovascular: Normal RRR, normal S1 and S2 Abdomen: Obese, abdomen nondistended, normal bowel sounds, no pain to palpation in any of the abdominal quadrants, no palpable masses. Extremities: Presence of PICC line in right inner forearm, presence of bandaging covering left foot and left calf, no deformities present on the right leg, pulses of left foot are unable to be evaluated, right pulses are slightly decreased Skin: No rashes or pruritus Neurological: Intact cranial nerves with no focal neurologic deficits laboratory and microbiology Laboratory Tests 01/07/25 06:15 Test 01/07/25 06:15 Range/Units Serum Glucose 277 H 74-106 mg/dL Microbiology Date/Time Source Procedure Growth Status 01/01/25 12:50 Leg Left Gram Stain - Final Complete 01/01/25 12:50 Leg Left Anaerobic Culture - Final Complete 01/01/25 12:50 Leg Left Aerobic Culture - Final Complete 12/30/24 19:20 Blood Blood Culture - Final NO GROWTH AFTER 5 DAYS OF INCUBATION. Complete Problem List/Assessment/Plan Problem List/Assessment/Plan Assessment and plan: Left foot and calf cellulitis with abscess Left hallux osteomyelitis? Left leg abscess Left leg necrotizing fasciitis -Left foot xray: Increased tissue density on the dorsal as well as plantar surface of the distal metatarsals proximal phalanges. -Tibia/Fibula xray:Multiple radiolucent foreign bodies are noted in the mid lateral tibia and fibular soft tissues. -CT Left Lower extremity: Findings consistent with cellulitis in the left lower leg with large fluid collection along the anterolateral aspect of the left lower leg, possibly within or adjacent to the anterior compartment musculature, most consistent with abscess, containing complex fluid and numerous locules of gas. Soft tissue swelling in the great toe with wound at the plantar aspect of the 1st MTP joint, likely cellulitis. No definite evidence for osteomyelitis in the left lower leg or left foot. -Vancomycin IV daily -Cefepime 1g IV daily, discontinued -Zosyn IV daily started 01/04/2025 -Dialudid 0.25 mg IV q6 PRN -[place] 5 mg 1 tablet PO q6 PRN -I&D of left calf 01/01/2025 -I&D of left foot and calf 01/04/2025. -Graft procedure 01/06/2025 -Pending approval for home IV antibiotics -Wound grafts are negative -Blood cultures negative PAD Type 2 Diabetes Mellitus with hyperglycemia, HbA1c 8.5% -Metformin 500 mg BID PO -Lantus 20 U -Carbohydrate consistent diet MRSA + nares -Mupirocin to each nare Hypertension -Lisinopril 20 mg PO daily -Amlodipine 5 mg PO daily -Hydralazing 10 mg IV q6 if SBP > 150 Hyperlipidemia -Atorvastatin 40 mg PO daily DVT, ruled out -Venous duplex: No left femoropopliteral venous thrombosis, contralateral common femoral vein is patent Morbid obesity, 38.5 kg/m2 -Thorough counseling on lifestyle modifications. Consult with social worker psychiatric placed for home IV antibiotics. DVT prophylaxis: Lovenox 40 mg SC GI prophylaxis: Protonix 40 mg PO Case discussed with Dr. Hinojosa. Goals of care discussed with the patient for over 20 minutes who states she understands and agrees. Plan discussed with: Patient Dietary Evaluation Review Comments: 1) CCHO 60gm + cardiac diet 2) Gasper 1 pk BID 3) Refer Process Camera Operator for diabetes education Expected Outcomes/Goals: Wound to improve Fu 3-5 days Date of Service: Jan 07, 2025 Billing Provider: OXANA HINOJOSA MD Common Visit Codes: [id number] INP/OBS CARE(HIGH) BRETT SILVA RESIDENT Jan 07, 2025 19:51 OXANA HINOJOSA MD Jan 09, 2025 20:50
[2025-01-08] VITALS (7 sets, daily range): BP systolic 141–167; BP diastolic 86–97; PULSE 82–111; RESP 17–22; TEMP 97.2–98.6; O2SAT 98–100
--- NOTE | 2025-01-08 16:33 | DVHPNRES ---
Progress Note Date Seen: Jan 08, 2025 Resident Creating Document: BRETT SILVA RESIDENT Has the PT tested + for MRSA If YES, has PT been informed?: Yes Medical Necessity Reason Pt with a Central, PICC or Fol: No Subjective Review of Systems Patient is a 54 year female with past medical history of type 2 diabetes mellitus, hypertension, and hyperlipidemia, who presented to the ED chief complaint of foot pain. Patient refers progressive onset of left foot and calf pain, described as throbbing, intensity 9/10, which was aggravated by movement and placing pressure on the extremity. She states her left calf was erythematous, swollen, warm to the touch, and very painful. She states that in November she will to her left foot swollen and blistering, for which she sought care at [facility] on 12/04/2024 where she was hospitalized and to incision and debridement procedures for performed and she was sent home on IV antibiotics with a PICC line. She states she was complaint with treatment as home health was coming for antibiotic administration and dressing changes. On evaluation in the ED, initial labs sheow WBC 5.1, Hb 11.2, sodium 139, potassium 4.1, creatinine 0.88, lactic acid 1.3, and serum glucose 254. Chest xray showed no acute cardiopulmonary disease. Foot xray showed increased tissue density on the dorsal and plantar surface of the distal metatarsals proximal phalanges., with subsequent imaging showing radiolucent foreign bodies in the mid lateral tibia and fibular soft tissues. She was admitted for further work up and initiation of antibiotic treatment. She was taken to I&D 01/04/2025 and graft procedures on 01/06/[address] Leung. Patient seen at bedside. Patient states she feels better, pain has improved. She is able to tolerate oral diet and ambulate to bathroom with limited difficulty. She denies fever, chills, nausea, vomiting and other symptoms. No adverse events over nights. Vitals and labs are within normal range. Per podiatry, patient should maintain her foot elevated throughout the day and when ambulating use surgical boot. Pending approval of home health IV antibiotics for discharge. Objective vital signs Vital Sign Date Time Temp Pulse Resp B/P (MAP) Pulse Ox O2 Delivery O2 Flow Rate FiO2 01/08/25 13:28 158/98 01/08/25 13:00 97.5 85 17 99 97.5 01/08/25 08:00 Room Air* 0 21 Total Intake and Output 01/07/25 01/07/25 01/08/25 15:00 23:00 07:00 Intake Total 100 ml 1100 ml 800 ml Balance 100 ml 1100 ml 800 ml medications Current Medications Medications Dose Ordered Sig/Garima Route Start Time Stop Time Status Last Admin Dose Admin Pantoprazole Sodium 40 mg DAILY@0600 PO 12/31/24 06:00 01/08/25 04:57 40 MG Enoxaparin Sodium 40 mg DAILY SC 12/31/24 10:00 01/08/25 09:42 40 MG Amlodipine Besylate 5 mg DAILY PO 12/31/24 10:00 01/08/25 09:41 5 MG Lisinopril 20 mg DAILY PO 12/31/24 10:00 01/08/25 09:42 20 MG Insulin Glargine 20 units HS SC 12/31/24 22:00 01/07/25 22:22 20 UNITS Diagnostic Test (Pha) 1 strip ACHS 12/31/24 07:00 01/08/25 11:30 1 STRIP Insulin Human Regular AC SC 12/31/24 07:00 01/08/25 06:34 2 UNITS Dextrose 50 ml UD PRN IV 12/31/24 00:00 Vancomycin HCl 0 ml @ 0 mls/hr UD IV 12/31/24 00:00 Atorvastatin Calcium 40 mg HS PO 12/31/24 22:00 01/07/25 21:55 40 MG Acetaminophen/ Hydrocodone Bitart 1 tab Q6HPRN PRN PO 12/31/24 04:15 01/07/25 11:26 1 TAB Mupirocin 1 applic BID TOP 12/31/24 22:00 01/08/25 09:43 1 APPLIC Diphenhydramine HCl 25 mg Q6HP PRN PO 01/01/25 11:30 01/01/25 11:49 25 MG Hydralazine HCl 10 mg Q6HP PRN IV 01/03/25 12:00 01/08/25 13:28 10 MG Hydromorphone HCl 0.25 mg Q4HPRN PRN IV 01/03/25 13:00 01/08/25 09:57 0.25 MG Piperacillin Sod/ Tazobactam Sod 100 ml @ 25 mls/hr Q8HR IV 01/04/25 22:00 01/08/25 13:28 25 MLS/HR Vancomycin HCl 200 ml @ 200 mls/hr Q12H IV 01/05/25 17:00 01/08/25 05:04 200 MLS/HR Oxycodone HCl 10 mg ONCE PRN PO 01/06/25 10:45 01/06/25 11:00 10 MG Ondansetron HCl 4 mg Q4HPRN PRN IV 01/06/25 14:00 Examination General: Patient is comfortable, alert and oriented in person place and time. Patient following commands HEENT: Normocephalic, atraumatic, EOM intach, pink conjunctiva, pink moist mucous membrane Respiratory/pulmonary: Bilateral cherst expansion, clear lungs bilaterally, vesicular murmurs present, no associated crackles or wheezes. Cardiovascular: Normal RRR, normal S1 and S2 Abdomen: Obese, abdomen nondistended, normal bowel sounds, no pain to palpation in any of the abdominal quadrants, no palpable masses. Extremities: Presence of PICC line in right inner forearm, presence of bandaging covering left foot and left calf, no deformities present on the right leg, pulses of left foot are unable to be evaluated, right pulses are slightly decreased Skin: No rashes or pruritus Neurological: Intact cranial nerves with no focal neurologic deficits laboratory and microbiology Laboratory Tests 01/08/25 06:03 01/07/25 06:15 Test 01/07/25 06:15 Range/Units Serum Glucose 277 H 74-106 mg/dL Microbiology Date/Time Source Procedure Growth Status 01/01/25 12:50 Leg Left Gram Stain - Final Complete 01/01/25 12:50 Leg Left Anaerobic Culture - Final Complete 01/01/25 12:50 Leg Left Aerobic Culture - Final Complete 12/30/24 19:20 Blood Blood Culture - Final NO GROWTH AFTER 5 DAYS OF INCUBATION. Complete Problem List/Assessment/Plan Problem List/Assessment/Plan Assessment and plan: Left foot and calf cellulitis with abscess Left hallux osteomyelitis? Left leg abscess Left leg necrotizing fasciitis -Left foot xray: Increased tissue density on the dorsal as well as plantar surface of the distal metatarsals proximal phalanges. -Tibia/Fibula xray:Multiple radiolucent foreign bodies are noted in the mid lateral tibia and fibular soft tissues. -CT Left Lower extremity: Findings consistent with cellulitis in the left lower leg with large fluid collection along the anterolateral aspect of the left lower leg, possibly within or adjacent to the anterior compartment musculature, most consistent with abscess, containing complex fluid and numerous locules of gas. Soft tissue swelling in the great toe with wound at the plantar aspect of the 1st MTP joint, likely cellulitis. No definite evidence for osteomyelitis in the left lower leg or left foot. -Vancomycin IV daily -Cefepime 1g IV daily, discontinued -Zosyn IV daily started 01/04/2025 -Dialudid 0.25 mg IV q6 PRN -[place] 5 mg 1 tablet PO q6 PRN -I&D of left calf 01/01/2025 -I&D of left foot and calf 01/04/2025. -Graft procedure 01/06/2025 -Pending approval for home IV antibiotics -Wound grafts are negative -Blood cultures negative PAD Type 2 Diabetes Mellitus with hyperglycemia, HbA1c 8.5% -Metformin 500 mg BID PO -Lantus 20 U -Carbohydrate consistent diet MRSA + nares -Mupirocin to each nare Hypertension -Lisinopril 20 mg PO daily -Amlodipine 5 mg PO daily -Hydralazing 10 mg IV q6 if SBP > 150 Hyperlipidemia -Atorvastatin 40 mg PO daily DVT, ruled out -Venous duplex: No left femoropopliteral venous thrombosis, contralateral common femoral vein is patent Morbid obesity, 38.5 kg/m2 -Thorough counseling on lifestyle modifications. Consult with social service technician placed for home IV antibiotics, currently pending approval. DVT prophylaxis: Lovenox 40 mg SC GI prophylaxis: Protonix 40 mg PO Case discussed with Dr. Hinojosa. Goals of care discussed with the patient for over 20 minutes who states she understands and agrees. Plan discussed with: Patient Dietary Evaluation Review Comments: 1) CCHO 60gm + cardiac diet 2) [place] 1 pk BID 3) Refer Steward/Stewardess Dining Room for diabetes education Expected Outcomes/Goals: Wound to improve Fu 3-5 days Date of Service: Jan 08, 2025 Billing Provider: OXANA HINOJOSA MD Common Visit Codes: [id number] INP/OBS CARE(HIGH) SILVAWOLSEY RESIDENT Jan 08, 2025 16:33 OXANA HINOJOSA MD Jan 09, 2025 20:50
[2025-01-09 01:00] VITALS: BP 153/90; PULSE 89; RESP 17; TEMP 97.4; O2SAT 98
[2025-01-09 05:00] VITALS: BP 167/103; PULSE 87; RESP 20; TEMP 97.3; O2SAT 98
[2025-01-09 09:00] VITALS: BP 155/100; PULSE 85; RESP 18; TEMP 97.5; O2SAT 97
[2025-01-09 13:00] VITALS: BP 143/89; PULSE 85; RESP 18; TEMP 97.6; O2SAT 98
[2025-01-09] MEDS ORDERED: AML5T PO (14:17)
[2025-01-09] MEDS ORDERED: HYDR-4902 PO (14:17)
[2025-01-09] MEDS ORDERED: LISI20TA56 PO (14:17)
[2025-01-09] MEDS ORDERED: ATOR-507 PO (14:17)
[2025-01-09] MEDS ORDERED: INSU100I49 SC (15:47)
[2025-01-09] MEDS ORDERED: ALCOPAD62 XX (15:47)
[2025-01-09] MEDS ORDERED: BLOO1KIT60 XX (15:47)
[2025-01-09] MEDS ORDERED: LANC-347 XX (15:47)
[2025-01-09] MEDS ORDERED: INSLANTI SC (15:47)
[2025-01-09] MEDS ORDERED: GLUCTES VI (15:47)
[2025-01-09] MEDS: hydrALAZINE HCL 20 MG/ML VL IV ONE (16:15)
--- NOTE | 2025-01-09 16:24 | DVHDSRES ---
Discharge Summary Date of Admission Resident Creating Document: BRETT SILVA RESIDENT Dec 30, 2024 at 23:46 Date of Discharge: Jan 09, 2025 Admitting Diagnosis Left Foot Cellulitis Labs/Diagnostic Data: Laboratory Results Test 01/09/25 11:06 01/08/25 06:03 01/07/25 17:29 01/07/25 06:15 POC Glucose 153 mg/dl (70-106) Creatinine 0.82 mg/dL (0.550-1.02) Glomerular Filtration Rate Calc 86 mL/min (>90) Vancomycin Level Trough 14.4 ug/mL (5-10) White Blood Count 4.9 10^3/uL (4.4-10.8) Red Blood Count 3.37 10^6/uL (4.0-5.20) Hemoglobin 10.0 g/dL (12.2-16.2) Hematocrit 29.4 % (36.0-46.0) Mean Corpuscular Volume 87.4 fL (80.0-100.0) Mean Corpuscular Hemoglobin 29.8 pg (28.0-32.0) Mean Corpuscular Hemoglobin Concent 34.1 g/dL (32.0-36.0) Red Cell Distribution Width 14.7 % (11.8-14.3) Platelet Count 311 10^3/uL (140-450) Mean Platelet Volume 7.7 fL (6.9-10.8) Neutrophils (%) (Auto) 66.4 % (37.0-80.0) Lymphocytes (%) (Auto) 22.0 % (10.0-50.0) Monocytes (%) (Auto) 10.3 % (0.0-12.0) Eosinophils (%) (Auto) 0.5 % (0.0-7.0) Basophils (%) (Auto) 0.8 % (0.0-2.0) Neutrophils # (Auto) 3.2 10 ^3/uL (1.6-8.6) Lymphocytes # (Auto) 1.1 10 ^3/uL (0.4-5.4) Monocytes # (Auto) 0.5 10 ^3/uL (0-1.3) Eosinophils # (Auto) 0 10 ^3/uL (0-0.8) Basophils # (Auto) 0 10 ^3/uL (0-0.2) Nucleated Red Blood Cells 0.1 % Sodium Level 136 mmol/L (136-145) Potassium Level 4.2 mmol/L (3.5-5.1) Chloride Level 103 mmol/L (98-107) Carbon Dioxide Level 25 mmol/L (20-31) Anion Gap 8 (5-15) Blood Urea Nitrogen 18 mg/dL (9-23) BUN/Creatinine Ratio 17.8 (10.0-20.0) Serum Glucose 277 mg/dL (74-106) Calcium Level 9.8 mg/dL (8.7-10.4) Test 01/02/25 07:07 12/31/24 12:03 12/31/24 09:12 12/30/24 19:20 Total Bilirubin 0.7 mg/dL (0.2-1.0) Aspartate Amino Transferase (AST) 24 U/L (13-40) Alanine Aminotransferase (ALT) 16 U/L (7-40) Alkaline Phosphatase 135 U/L (46-116) Total Protein 7.3 g/dL (5.7-8.2) Albumin 3.9 g/dL (3.2-4.8) Lactic Acid Level 1.2 mmol/L (0.4-2.0) Prothrombin Time 10.9 sec (9.3-11.8) Prothrombin Time INR 1.03 (0.9-1.15) Activated Partial Thromboplast Time 26.4 SEC (24.5-34.5) Hemoglobin A1c 8.4 % A1C (<5.7) Triglycerides Level 147 mg/dL (< 150) Cholesterol Level 159 mg/dL (< 200) LDL Cholesterol 102 mg/dL (< 100) HDL Cholesterol 34 mg/dL (40-59) Thyroid Stimulating Hormone (TSH) 1.06 uIU/mL (0.55-4.78) Troponin I High Sensitivity 4 ng/L (</=34) Other Laboratory Tests 01/08/25 06:03 01/07/25 06:15 Brief Hx & Hospital Course: Patient is a 54 year female with past medical history of type 2 diabetes mellitus, hypertension, and hyperlipidemia, who presented to the ED chief complaint of foot pain. Patient refers progressive onset of left foot and calf pain, described as throbbing, intensity 9/10, which was aggravated by movement and placing pressure on the extremity. She states her left calf was erythematous, swollen, warm to the touch, and very painful. She states that in November she will to her left foot swollen and blistering, for which she sought care at [facility] on 12/04/2024 where she was hospitalized and to incision and debridement procedures for performed and she was sent home on IV antibiotics with a PICC line. She states she was complaint with treatment as home health was coming for antibiotic administration and dressing changes. On evaluation in the ED, initial labs sheow WBC 5.1, Hb 11.2, sodium 139, potassium 4.1, creatinine 0.88, lactic acid 1.3, and serum glucose 254. Chest xray showed no acute cardiopulmonary disease. Foot xray showed increased tissue density on the dorsal and plantar surface of the distal metatarsals proximal phalanges., with subsequent imaging showing radiolucent foreign bodies in the mid lateral tibia and fibular soft tissues. She was admitted for further work up and initiation of antibiotic treatment. She was taken to I&D 01/04/2025 and graft procedures on 01/06/[address] Leung. Patient tolerated the procedures, has had intermittent pain, mainly concentrated in left calf, during recovery but this has been managed with pain medication. On evaluation today, patient states she fells well, the pain has improved. She is able to tolerate oral diet and is able to ambulate with the surgical shoe provided by podiatry. She denies fever, chills, nausea, vomiting and other symptoms. No adverse events over nights. Patient has been hypertensive, but this has been managed with medications. Labs are with normal range. Patient is considered stable for discharge home with home IV antibiotics for 6 weeks. She will follow up outpatient in the discharge clinic for monitoring of vancomycin levels and general follow up. Medications and recommendations have been thoroughly explained, she states she understands and agrees. Physical Exam: General: Patient is comfortable, alert and oriented in person place and time. Patient following commands HEENT: Normocephalic, atraumatic, EOM intach, pink conjunctiva, pink moist mucous membrane Respiratory/pulmonary: Bilateral cherst expansion, clear lungs bilaterally, vesicular murmurs present, no associated crackles or wheezes. Cardiovascular: Normal RRR, normal S1 and S2 Abdomen: Obese, abdomen nondistended, normal bowel sounds, no pain to palpation in any of the abdominal quadrants, no palpable masses. Extremities: Presence of PICC line in right inner forearm, presence of bandaging covering left foot and left calf is clean and dryy, no deformities present on the right leg, pulses of left foot are unable to be evaluated, right pulses are slightly decreased Skin: No rashes or pruritus Neurological: Intact cranial nerves with no focal neurologic deficits Case discussed with Dr. Hinojosa. Goals of care discussed with the patient for over 30 minutes. She states she understands and agrees. Consults/Reason for consult Podiatry was consulted due osteomyelitis and abscesses Operations or Procedures PROCEDURE(s): CXRP - CHEST PORTABLE REASON: fever ORDER NUMBER(s): [id number], ACCESSION NUMBER(s): [id number] CHEST RADIOGRAPH Indication: fever Technique: Single frontal view of the chest was obtained Comparison: None FINDINGS: Lines and Tubes: None Lungs: No focal consolidation. Pleura: No effusion. No pneumothorax. Cardiomediastinal contours: Unremarkable Bones: No acute osseous abnormality. IMPRESSION: 1. No acute cardiopulmonary disease. PROCEDURE(s): LFOOT - L FOOT 3 VIEW XRAY REASON: left foot pain s/p debridement ORDER NUMBER(s): [id number], ACCESSION NUMBER(s): [id number] CLINICAL INDICATION: left foot pain s/p debridement TECHNIQUE: 3 radiographic views of the left foot were obtained. Comparison: None FINDINGS/IMPRESSION: Increased tissue density on the dorsal as well as plantar surface of the distal metatarsals proximal phalanges. PROCEDURE(s): LTBFB - L TIB FIB XRAY REASON: left leg pain s/p debridement ORDER NUMBER(s): [id number], ACCESSION NUMBER(s): [id number] CLINICAL INDICATION: left leg pain s/p debridement TECHNIQUE: 1 radiographic views of the left tibia fibula are were obtained. Comparison: None FINDINGS/IMPRESSION: Multiple radiolucent foreign bodies are noted in the mid lateral tibia and fibular soft tissues. PROCEDURE(s): LLEX - LEFT LOWER EXTREMITY W/O CON REASON: Left lower extremity cellulitis ORDER NUMBER(s): [id number], ACCESSION NUMBER(s): [id number] CLINICAL INFORMATION: Left lower extremity cellulitis. TECHNIQUE: Axial CT images of the left lower extremity from the level of the mid femur through the foot were obtained without IV contrast. Coronal and sagittal reformatted images were obtained, reviewed, and stored. All CT scans at this medical facility are performed using dose modulation techniques as appropriate to a performed exam including the following: Automated exposure control was utilized; adjustment of the MA and/or KV according to patient size; and use of iterative reconstruction technique. CTDIvol = 8.58 mGy DLP = 731.63 mGy-cm COMPARISON: None FINDINGS: Moderate to marked subcutaneous edema throughout the left lower leg, likely cellulitis in the appropriate clinical setting, with large complex fluid collection containing numerous locules of gas at the anterolateral aspect of the left lower leg, possibly within or adjacent to the anterior compartment musculature, poorly delineated on noncontrast enhanced examination, measures approximately 6.0 x 4.3 cm on the axial images extends up to 28.8 cm in craniocaudal dimension on the coronal images, suspected large abscess. No gas visualized outside this collection or along adjacent fascial planes to suggest necrotizing fasciitis. There is also prominent soft tissue swelling in the great toe with wound at the plantar aspect of the 1st MTP joint. No erosive changes or cortical destruction are seen in the osseous structures. IMPRESSION: 1. Findings consistent with cellulitis in the left lower leg with large fluid collection along the anterolateral aspect of the left lower leg, possibly within or adjacent to the anterior compartment musculature, most consistent with abscess, containing complex fluid and numerous locules of gas. 2. Soft tissue swelling in the great toe with wound at the plantar aspect of the 1st MTP joint, likely cellulitis. 3. No definite evidence for osteomyelitis in the left lower leg or left foot. Critical findings Critical Result: Abscess. PROCEDURE(s): BLEAD - BiLat Low Ext Art Duplex REASON: diminished pulses on lower legs ORDER NUMBER(s): [id number], ACCESSION NUMBER(s): [id number] BILATERAL Lower Extremity Arterial Duplex Date: 12/31/2024 08:57 AM Clinical History: diminished pulses on lower legs Comparison: None Technique: Duplex Doppler evaluation including color Doppler and spectral/pulsed waveform analysis of the lower extremity arteries was performed. Finding: RIGHT: Peak systolic velocities are as follows: [employer] 179 cm/s Deep femoral 97 cm/s SFA proximal 135 cm/s SFA mid-portion 141 cm/s SFA distal 111 cm/s Popliteal 85 cm/s Posterior tibial 67 cm/s Dorsalis pedis 53 cm/s The waveforms are triphasic with diastolic flow. LEFT: Velocities within normal limits. Monophasic waveforms from the left popliteal artery to the left dorsalis pedal artery. Left inguinal lymph node measures 5 cm. REFERENCE VALUES, [facility]) vascular Imaging Lab Criteria: Peak systolic velocity ranges (in cm/sec) are as follows: <150 cm/s - <20 % stenosis 150-200 cm/s - 20-49% stenosis 200-300 cm/s - 50-75% stenosis >300 cm/s -> 75% stenosis IMPRESSION: There is no evidence for peripheral vascular insufficiency in the right lower extremity. Monophasic waveforms from the left popliteal artery to the left dorsalis pedal artery. Left inguinal lymph node measures 5 cm. PROCEDURE(s): LLDVT - LT Lower DVT REASON: Left lower extremity cellulitis ORDER NUMBER(s): [id number], ACCESSION NUMBER(s): [id number] Left lower extremity venous duplex Clinical History: Left lower extremity cellulitis Comparison: None Technique: Duplex Doppler evaluation of the deep venous system of the left lower extremity from the common femoral vein to the popliteal vein including color Doppler and spectral/pulsed waveform analysis was performed. Findings: The common femoral vein demonstrates appropriate compressibility and waveform variability. There is compressibility/patency of the great saphenous vein at the proximal thigh. The femoral vein demonstrates appropriate compressibility and waveform variability. The deep femoral vein demonstrates appropriate compressibility and waveform variability. The popliteal vein demonstrates appropriate compressibility and waveform variability. There is normal compressibility at the tibioperoneal trunk. Impression: 1. No left femoropopliteal venous thrombosis. 2. Contralateral common femoral vein is patent. Condition at Discharge: Good Final Diagnosis/Problems List Left foot and calf cellulitis with abscess Left hallux osteomyelitis Left leg abscess Left leg necrotizing fasciitis PAD Type 2 Diabetes Mellitus with hyperglycemia, HbA1c 8.5% Hypertension Hyperlipidemia DVT, ruled out Morbid obesity, 38.5 kg/m2 Discharge Disposition: Home with Health Services Discharge Instruct/Medications Diet: Consistent carbohydrate Activity: No Restrictions, As Tolerated Follow Up/Referral: Follow up in discharge clinic in 1 week Follow up with Dr. Leung in Podiatry clinic in 1 week Medications: IV Vancomycin 1 g q 12 hrs for 6 weeks IV Ceftriaxone 1 g daily for 6 weeks [place] 5 mg q 6 hrs PRN Insulin glargine 20 units at night Isulin aspart TID at meals Lisinopril 20 mg PO daily Home medications Scheduled Amlodipine Besylate (Norvasc Tablet), 5 MG PO DAILY Atorvastatin Calcium (Lipitor), 1 TAB PO DAILY Glucose Blood (Blood Glucose Test Strips), 1 KIT BID Insulin Aspart (Insulin Aspart), 100 UNIT SC TIDWMEALS Insulin Glargine (Lantus), 100 UNIT SC QPM Lisinopril (Lisinopril), 20 MG PO DAILY Scheduled PRN Hydrocodone-Acetaminophen (Hydrocodone Bitartrate/AC 5-325 mg), 1 TAB PO Q6HP PRN Durable Medical Equipment Blood Glucose Monitoring Suppl (D-Care Glucometer Kit/Glu W/Device), KIT XX TID, (DME) Isopropyl Alcohol (Alcohol Pads), % XX TID, (DME) Lancets (Freestyle Lancets), KIT XX TID, (DME) Discharge Statement: "Patient was advised to return to the ER or call 911 if any headaches, dizziness, shortness of breath, chest pain, abdominal pain, bleeding, fevers, or worsening of medical condition. Patient was counseled about treatment plan, medications, possible side effects, patientverbalized understanding. All questions were answered to the best of my ability. This discharge took greater then 30 minutes in planning, reviewing documentation, counseling the patient, and discussing with other team members." ASSESSMENT ASSESSMENT Assessment Left foot and calf cellulitis with abscess Left hallux osteomyelitis Left leg abscess Left leg necrotizing fasciitis PAD Type 2 Diabetes Mellitus with hyperglycemia, HbA1c 8.5% Hypertension Hyperlipidemia DVT, ruled out Morbid obesity, 38.5 kg/m2 Date of Service: Jan 09, 2025 Billing Provider: OXANA HINOJOSA MD Common Visit Codes: 20151-WSK/OBS DISCH DAY >30min BRETT SILVA RESIDENT Jan 09, 2025 16:24 OXANA HINOJOSA MD Jan 09, 2025 20:51
[2025-01-09 17:00] VITALS: BP 155/96; PULSE 85; RESP 18; TEMP 98.4; O2SAT 99
== END 2025-01-09 17:40 | disposition home or self-care (01) | DRG 312 ==
LOC: EDBD 17:57 → ER 17:57 → OVERFLOW 23:46 → WEST WING 12-31 03:35
PROVIDERS: ADMIT Internal Medicine Geriatric Medicine; ATTEND Internal Medicine Geriatric Medicine
PROC: 0J9P0ZZ Drainage of Left Lower Leg Subcutaneous Tissue and Fascia, Open Approach (ICD-10-PCS; 2025-01-01)
PROC: 0Q9R0ZZ Drainage of Left Toe Phalanx, Open Approach (ICD-10-PCS; principal; 2025-01-01 12:34)
PROC: 0J9R0ZZ Drainage of Left Foot Subcutaneous Tissue and Fascia, Open Approach (ICD-10-PCS; 2025-01-04)
PROC: 0J9P0ZZ Drainage of Left Lower Leg Subcutaneous Tissue and Fascia, Open Approach (ICD-10-PCS; 2025-01-04)
PROC: 0HRNXK3 Replacement of Left Foot Skin with Nonautologous Tissue Substitute, Full Thickness, External Approach (ICD-10-PCS; 2025-01-06)
PROC: 0J9R0ZZ Drainage of Left Foot Subcutaneous Tissue and Fascia, Open Approach (ICD-10-PCS; 2025-01-06)
PROC: 0J9P0ZZ Drainage of Left Lower Leg Subcutaneous Tissue and Fascia, Open Approach (ICD-10-PCS; 2025-01-06)
PROC: 0JXR0ZZ Transfer Left Foot Subcutaneous Tissue and Fascia, Open Approach (ICD-10-PCS; 2025-01-06)
DX: E11.69 Type 2 diabetes mellitus with other specified complication (principal); M86.8X7 Other osteomyelitis, ankle and foot; M72.6 Necrotizing fasciitis; L02.416 Cutaneous abscess of left lower limb; D64.9 Anemia, unspecified; E11.65 Type 2 diabetes mellitus with hyperglycemia; L03.116 Cellulitis of left lower limb; E66.01 Morbid (severe) obesity due to excess calories; E78.5 Hyperlipidemia, unspecified; I10 Essential (primary) hypertension; Z68.36 Body mass index [BMI] 36.0-36.9, adult; Z79.899 Other long term (current) drug therapy; Z79.4 Long term (current) use of insulin; Z79.84 Long term (current) use of oral hypoglycemic drugs
CPT/HCPCS: 36415; 71045; 73590; 73630; 73700; 80048; 80053; 80061; 80202; 82565; 82962; 83036; 83605; 84443; 84484; 85025; 85610; 85730; 86850; 86900; 86901; 87040; 87070; 87075; 87081; 87205; 93005; 93925; 93971; 96365; 96375; 99291; G0378; J0131; J0692; J1100; J1815; J1885; J2250; J2405; J2543; J2704; J3490

== ENCOUNTER 2025-01-29 14:17 | Emergency (ER) | payer MEDICAID ==
[~2025-01-29] VITALS: Ht 172.7 cm; Wt 111.3 kg
[~2025-01-29 14:17] MED LIST: ALCOPAD62 XX; AML5T PO; ATOR-507 PO; BLOO1KIT60 XX; GLUCTES VI; HYDR-4902 PO; INSLANTI SC; INSU100I49 SC; LANC-347 XX; LISI20TA56 PO
--- NOTE | 2025-01-29 14:47 | ED.PDOC ---
HPI Comments See 5-year-old female with a history of diabetes, and hypertension, presents to the emergency department for the chief complaint of high blood pressure with an associated headache. Patient states that she was at urgent care for the same chief complaint approximately one week ago, and was prescribed amlodipine and lisinopril, but notes she has had no alleviation to her high blood pressure. Patient notes that her blood pressure was noted to be 170/102 at home, and it is noted to be 163/93 upon triage assessment. Patient denies any chest pain, shortness a breath, abdominal pain, nausea, vomiting, diarrhea, palpitations, diaphoresis, dysuria, hematuria, tachypnea, or any other associated symptoms, modifiers at this time. Chief Complaint: High Blood Pressure Time Seen by MD: 14:43 Reviewed Notes: Nurses Notes, Medications, Allergies Allergies: Coded Allergies: NO KNOWN ALLERGIES (Unverified , 08/07/10) Home Meds Active Scripts Isopropyl Alcohol (Alcohol Pads) 70 % Pad, % XX TID, #1 Clean area with alcohol pads before piercing with a lancets to check blood glucose Prov:SHANEL REILLY RESIDENT 01/09/25 Lancets (Freestyle Lancets) Lancets Mis, KIT XX TID, #1 Check blood glucose before meals and at bedtime Prov:SHANEL REILLY RESIDENT 01/09/25 Blood Glucose Monitoring Suppl (D-Care Glucometer Kit/Glu W/Device) 1 Kit Kit, KIT XX TID, #1 Check blood sugar before each meal and at bedtime Prov:SHANEL REILLY RESIDENT 01/09/25 Glucose Blood (Blood Glucose Test Strips) Tamanna, 1 KIT BID for 30 Days, #100 MISC Prov:SHANEL REILLY RESIDENT 01/09/25 Insulin Aspart (Insulin Aspart) 100 Unit/Ml Inj, 100 UNIT SC TIDWMEALS for 30 Days, #1 INJ Check your blood glucose with the glucometer and strips 15-20 minutes before meals If blood sugar < 60 - have 15-20 g of glucose (8 oz cranberry juice, orange juice, apple juice, small carton of milk) go to the ER/call 911 Blood sugar 61-130 - no insulin Blood sugar 131-160 - 2 units Blood sugar 161-200 - 3 units Blood sugar 201-250 - 6 units Blood sugar 251-300 - 9 units Blood sugar 301-350 - 12 units Blood sugar 351-400 - 15 units Prov:REILLYSHANEL RESIDENT 01/09/25 Insulin Glargine (Lantus) 100 Unit/Ml Inj, 100 UNIT SC QPM for 30 Days, #3 INJ Use 20 units subcutaneously every night. Prov:SHANEL REILLY RESIDENT 01/09/25 Hydrocodone-Acetaminophen (Hydrocodone Bitartrate/AC 5-325 mg) 1 Tab Tab, 1 TAB PO Q6HP PRN, #30 TAB Prov:OXANA JAH MD 01/09/25 Lisinopril (Lisinopril) 20 Mg Tab, 20 MG PO DAILY for 30 Days, #30 TAB Prov:OXANA JHA MD 01/09/25 Atorvastatin Calcium (Lipitor) 40 Mg Tab, 1 TAB PO DAILY, #30 TAB 5 Refills Prov:OXANA JHA MD 01/09/25 Amlodipine Besylate (NORVASC TABLET) 5 Mg Tb, 5 MG PO DAILY for 30 Days, #30 TAB Prov:OXANA JHA MD 01/09/25 Information Source: Patient Mode of Arrival: Wheelchair Severity: Moderate Timing: Weeks Duration: Since onset Prehospital treatment: None Onset: At Rest Cardiac Risk Factors: HTN, Diabetes PE Risk Factors: None History of: None Associated Signs and Symptoms: None Past Medical History PAST MEDICAL HISTORY: DM, HTN Surgical History: Denies all surgeries SUPPORT SERVICES SPECIALIST History: No Pertinent SUPPORT SERVICES SPECIALIST History Family History Family History: Reviewed,noncontributory to illness, No family hx of Cancer, No family hx of DM, No family hx of Heart pramod, No family hx of HTN, No family hx ofKidney pramod, No family hx of Liver pramod, No family hx of Lung pramod, No family hx of Stroke Social History Smoker: Non-Smoker Alcohol: Denies ETOH Use Drugs: Denies Drug Use Lives In: Home Constitutional: denies: chills, diaphoresis, fatigue, fever, malaise, sweats, weakness, others EENTM: denies: blurred vision, double vision, ear bleeding, ear discharge, ear drainage, ear pain, ear ringing, eye pain, eye redness, hearing loss, mouth pain, mouth swelling, nasal discharge, nose bleeding, nose congestion, nose pain, photophobia, tearing, throat pain, throat swelling, voice changes, others Respiratory: denies: cough, hemoptysis, orthopnea, SOB at rest, shortness of breath, SOB with excertion, stridor, wheezing, others Cardiovascular: reports: others (Tachycardia); denies: chest pain, dizzy spells, diaphoresis, Dyspnea on exertion, edema, irregular heart beat, left arm pain, lightheadedness, palpitations, PND, syncope Gastrointestinal: denies: abdomen distended, abdominal pain, blood streaked bowels, constipated, diarrhea, dysphagia, difficulty swallowing, hematemesis, melena, nausea, poor appetite, poor fluid intake, rectal bleeding, rectal pain, vomiting, others Genitourinary: denies: abnormal vagina bleeding, burning, dyspareunia, dysuria, flank pain, frequency, hematuria, incontinence, pain, , vagina discharge, urgency, others Neurological: denies: dizziness, fainting, headache, left sided numbness, left sided weakness, numbness, paresthesia, pre-existing deficit, right sided numbness, right sided weakness, seizure, speech problems, tingling, tremors, weakness, others Musculoskeletal: denies: back pain, gout, joint pain, joint swelling, muscle pain, muscle stiffness, neck pain, others Integumetry: denies: bruises, change in color, change in hair/nails, dryness, laceration, lesions, lumps, rash, wounds, others Allergic/Immunocompromised: denies: Difficulty Healing, Frequent Infections, Hives, Itching, others Hematologic/Lymphatic: denies: anemia, blood clots, easy bleeding, easy bruising, swollen glands, others Endocrine: denies: excessive hunger, excessive sweating, excessive thirst, excessive urination, flushing, intolerance to cold, intolerance to heat, unexplained weight gain, unexplained weight loss, others Psychiatric: denies: anxiety, bipolar disorder, depression, hopeless, panic disorder, schizophrenia, sleepless, suicidal, others All Other Systems: Reviewed and Negative Physical Exam General Appearance: Moderate Distress, Normal HEENT: Normal ENT Inspection, Pharynx Normal, TMs Normal Neck: Full Range of Motion, Non-Tender, Normal, Normal Inspection Respiratory: Chest Non-Tender, Lungs Clear, No Accessory Muscle Use, No Respiratory Distress, Normal Breath Sounds Cardiovascular: No Edema, No JVD, No Murmur, No Gallop, Normal Peripheral Pulses, Regular Rate/Rhythm Breast Exam: Deferred Gastrointestinal: No Organomegaly, Non Tender, No Pulsatile Mass, Normal Bowel Sounds, Soft Genitalia: Deferred Pelvic: Deferred Rectal: Deferred Extremities: No calf tenderness, Normal capillary refill, Normal inspection, Normal range of motion, Non-tender, No pedal edema Musculoskeletal : Apperance: Normal Neurologic: Alert, pulling unit operator II-XII nml as Tested, No Motor Deficits, Normal Affect, Normal Mood, No Sensory Deficits Cerebellar Function: Normal Reflexes: Normal Skin: Dry, Normal Color, Warm Peripheral Pulses: 3+ Radial (R), 3+ Radial (L) Lymphatic: No Adenopathy Was a procedure done? Was a procedure done?: No CP Differential Dx Differential Diagnosis: A-fib, A-Flutter, Angina, Anxiety / Panic Attack, Atrial Dysrhythmia, Electrolyte Disorder Differential Diagnosis: HTN Essential, HTN Encephalopathy Differential Diagnosis: Angina, Chest Wall Pain, Cholelithiasis, Esophageal reflux/spasm, Gastritis X-Ray, Labs, Meds, VS Vital Signs Date Time Temp Pulse Resp B/P (MAP) Pulse Ox O2 Delivery O2 Flow Rate FiO2 01/29/25 14:20 97.7 94 18 163/93 97 97.7 Lab Test 01/29/25 15:49 Range/Units White Blood Count 4.4 4.4-10.8 10^3/uL Red Blood Count 3.75 L 4.0-5.20 10^6/uL Hemoglobin 10.7 L 12.2-16.2 g/dL Hematocrit 32.7 L 36.0-46.0 % Mean Corpuscular Volume 87.3 80.0-100.0 fL Mean Corpuscular Hemoglobin 28.5 28.0-32.0 pg Mean Corpuscular Hemoglobin Concent 32.7 32.0-36.0 g/dL Red Cell Distribution Width 14.4 H 11.8-14.3 % Platelet Count 257 140-450 10^3/uL Mean Platelet Volume 8.4 6.9-10.8 fL Neutrophils (%) (Auto) 55.6 37.0-80.0 % Lymphocytes (%) (Auto) 28.6 10.0-50.0 % Monocytes (%) (Auto) 8.1 0.0-12.0 % Eosinophils (%) (Auto) 6.8 0.0-7.0 % Basophils (%) (Auto) 0.9 0.0-2.0 % Neutrophils # (Auto) 2.5 1.6-8.6 10 ^3/uL Lymphocytes # (Auto) 1.3 0.4-5.4 10 ^3/uL Monocytes # (Auto) 0.4 0-1.3 10 ^3/uL Eosinophils # (Auto) 0.3 0-0.8 10 ^3/uL Basophils # (Auto) 0 0-0.2 10 ^3/uL Nucleated Red Blood Cells 0.1 % Sodium Level 139 136-145 mmol/L Potassium Level 3.9 3.5-5.1 mmol/L Chloride Level 105 98-107 mmol/L Carbon Dioxide Level 27 20-31 mmol/L Anion Gap 7 5-15 Blood Urea Nitrogen 21 9-23 mg/dL Creatinine 0.98 0.550-1.02 mg/dL Glomerular Filtration Rate Calc 69 >90 mL/min BUN/Creatinine Ratio 21.4 H 10.0-20.0 Serum Glucose 226 H 74-106 mg/dL Calcium Level 9.0 8.7-10.4 mg/dL Troponin I High Sensitivity 6 </=34 ng/L Patient alert. Came in because of high blood pressure. No sign of distress. Vitals stable. Blood sugar elevated. Cardiac marker within normal limits. WBC within normal limits. She has a anemia. No leg swelling. No chest pain. Saturation pristine on room air. Heart rate within normal limits. Respiratory rate within normal limits. Explained to the patient. Was told to follow up with her primary care physician. Was told to come back if there is any problem. Time of 1ST Reevaluation: 15:24 Reevaluation 1ST: Improved Patient Education/Counseling: Diagnosis, Treatment, Need For Follow Up Family Education/Counseling: No Family Present SEPSIS Sepsis Screen Date sepsis recognized/suspect: Jan 29, 2025 Time Sepsis recognized/suspect: 142 Recent Procedure: No On Antibiotic Therapy: No Respiratory Rate >20: No Heart Rate >90: No Temp<36 C (96.8 F) or >38.3 C: No SBP <90 or MAP <65 mmHG: No New Acute Mental Status Change: No Is the patient on CPAP, BIPAP,: No Physician Orders Urinalysis (01/29/25 15:15) Vital Signs Date Time Temp Pulse Resp B/P (MAP) Pulse Ox O2 Delivery O2 Flow Rate FiO2 01/29/25 14:20 97.7 94 18 163/93 97 97.7 Laboratory Tests Test 01/29/25 15:49 White Blood Count 4.4 10^3/uL (4.4-10.8) Departure 1 Departure Time of Disposition: 17:01 Impression: Primary Impression: Hypertensive urgency Additional Impression: Hyperglycemia Disposition: 01 HOME / SELF CARE / HOMELESS Condition: Good Discharged With: Self Critical Care Note Critical Care Time?: No Stability Stability form required: No Heart Score Heart Score: Heart Score Response (Comments) Value History N/A 0 EKG N/A 0 Age N/A 0 Risk Factors N/A 0 Troponin N/A 0 Total 0 I personally scribed for VINCE ROA MD ([email or web address]) on 01/29/25 at 14:47. Electronically submitted by Robbi Jones ([email or web address]). VINCE ROA MD Jan 29, 2025 14:47
[2025-01-29 16:21] LABS: Hematocrit 32.7 % (36.0-46.0); Hemoglobin 10.7 g/dL (12.2-16.2); Mean Corpuscular Hemoglobin 28.5 pg (28.0-32.0); Mean Corpuscular Volume 87.3 fL (80.0-100.0); Nucleated Red Blood Cells % 0.1 %
[2025-01-29 16:22] LABS: Chloride 105 mmol/L (98-107); Potassium 3.9 mmol/L (3.5-5.1); Sodium 139 mmol/L (136-145)
[2025-01-29 16:23] LABS: Anion Gap 7 (5-15); Carbon Dioxide 27 mmol/L (20-31)
[2025-01-29 16:24] LABS: Calcium 9.0 mg/dL (8.7-10.4)
[2025-01-29 16:29] LABS: BUN/Creatinine Ratio 21.4 (10.0-20.0); Blood Urea Nitrogen 21 mg/dL (9-23)
[2025-01-29 16:30] LABS: Glucose 226 mg/dL (74-106)
[2025-01-29 17:27] VITALS: BP 144/92; PULSE 88; RESP 19; TEMP 98; O2SAT 97
== END 2025-01-29 17:43 | disposition home or self-care (01) ==
LOC: ER 14:17
DX: I16.0 Hypertensive urgency (principal); E11.65 Type 2 diabetes mellitus with hyperglycemia; I10 Essential (primary) hypertension; Z79.899 Other long term (current) drug therapy; Z79.4 Long term (current) use of insulin
CPT/HCPCS: 36415; 80048; 84484; 85025